=== PATIENT | male | born 1955 | race Caucasian/White ===

== ENCOUNTER → 2017-11-06 | Outpatient (CLI) | payer OTHER | END | disposition home or self-care (01) | LOC: C.LABSPEC 14:45 → C.PATHSPEC 14:48 | PROVIDERS: ATTEND Urology | DX: N40.1 Benign prostatic hyperplasia with lower urinary tract symptoms (principal); R31.0 Gross hematuria; R32 Unspecified urinary incontinence; R39.15 Urgency of urination ==

== ENCOUNTER 2023-12-25 11:59 | Inpatient (IN) ==
--- NOTE | 2023-12-25 12:13 | ED Triage Note ---
Date of Service December 25, 2023 Provider in Triage Author: Santhosh Novak History of Present Illness This patient was briefly evaluated while in triage. An abbreviated physical exam was performed. This patient is a 68-year-old Male, history of diabetes and coronary artery disease, who presents to the ED with his caregiver for evaluation of a racing heart. The patient was seen at [facility] on 01/07/2024. She had a cardioversion Done for atrial fibrillation with rapid ventricular response. The patient was started on Xarelto. The patient has had his metoprolol on hold because his blood pressure dropped. 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 The patient was seen again at their emergency department yesterday, and received IV and oral medications that again reduced his heart rate. He was started on diltiazem. His heart rate this morning was around 157 bpm. Patient denies any chest pain, nausea, lightheadedness or headache. Patient does report shortness of breath with exertion. The patient's blood pressure prior to arrival was 97/76. Physical Exam CONSTITUTIONAL: Healthy and well nourished. Alert and oriented X 3. HEENT: No scleral icterus or conjunctival injection. RESPIRATORY: Clear to auscultation bilaterally with no wheezing, crackles, rhonchi or stridor. CARDIOVASCULAR: Tachycardic rhythm with no obvious murmurs, rubs or gallops. INTEGUMENTARY: No rash or other significant dermatologic conditions noted. HEMATOLOGIC: No ecchymosis or petechiae. PSYCHIATRIC: Positive affect. NEUROLOGIC: No focal neurologic deficits noted. Initial orders for labs and / or imaging were placed and patient was placed in the waiting area until a bed is available. Please see further documentation for the full ED course.
[2023-12-25] MEDS ORDERED: STAT IV Infusion **Titration per Protocol STA ×2 (12:36→21:27)
[2023-12-25] MEDS: dilTIAZem HCl 5 MG/ML 5 ML VIAL IV STA (12:39)
[2023-12-25] MEDS: dilTIAZem HCl 5 MG/ML 5 ML VIAL IV ONE (12:41)
--- NOTE | 2023-12-25 12:49 | Emergency Department Note ---
Impression & Plan Atrial fibrillation with rapid ventricular response ED Provider Note HISTORY OF PRESENT ILLNESS: Patient is a 68-year-old male presenting with tachycardia. Patient's caregiver is at bedside and reports she checked his vital signs earlier today and found that he had a heart rate in the 160s. He has a complicated history of A-fib with RVR. He has been admitted to [facility] multiple times in the last month. Reports that on 12/08/2023 he was admitted into [place] for A-fib with RVR and he was cardioverted for his new onset A-fib. He was started on Xarelto 20 mg daily. He was then at the [facility] ER yesterday for A- fib and was able to be discharged home after his heart rate became controlled on diltiazem. On arrival to the ER, the patient reports he just feels like his heart is racing. Denies any chest pain or shortness of breath. Denies any lightheadedness or dizziness. He does state that when he walks long distances he gets slightly short of breath, but this has been ongoing for the last month. ROS: as above PHYSICAL EXAM: Constitutional: Patient appears in no acute distress. HENT: Head: Normocephalic and atraumatic. Eyes: EOMI, PERRL Mouth/Throat: Mucous membranes moist. Neck: Trachea midline. Neck supple. Cardiovascular: Tachycardic with irregularly irregular rate. No murmurs, rubs or gallops. Intact distal pulses. Pulmonary/Chest: No respiratory distress. Breath sounds clear and equal bilaterally. No wheezes or rales. Abdominal: Abdomen soft, no tenderness, rebound or guarding. Musculoskeletal: No edema, tenderness or deformity noted. Skin: Warm and dry. No rash, erythema, pallor or cyanosis Psychiatric: Appropriate mood and affect for situation. Neurological: Alert and keenly responsive. CN II-XII grossly intact, moving all extremities equally and fully. MDM: - Vitals signs showed tachycardia. - History obtained via patient. History as above. - Chronic conditions affecting care: HTN; HLD; Afib; CAD; DM-2 - Differential diagnoses include, but are not limited to: dysrhythmia; electrolyte abnormality; pneumonia; pulmonary embolism; ACS - Order placed for continuous cardiac monitoring. At this time, monitor showed rate of 156 bpm with irregular rhythm, per my interpretation. - External medical records reviewed. Neurology visit note dated 06/18/2021 was reviewed. Patient follows with [facility] urology for his BPH. - EKG interpreted by myself showed wide-complex tachycardia. Rate 158 bpm. QT 294. No acute ischemic changes. - Laboratory workup interpreted by myself showed normal WBC; slight hyponatremia (Na 133); normal troponin; normal BNP; normal lipase - CXR negaitve for pneumonia, per my interpretation - Patient's HR in 160s and irregular. Given 20 mg IV cardizem bolus and HR improved to 120. Started on cardizem gtt. - Patient's blood pressure became 80s/60s and HR one teens. Cardizem was paused for about 45 minutes. Repeat SBPs around 120. Cardizem was re-started at 2.5 mg - Repeat EKG was obtained and interpreted by myself showed atrial fibrillation. Rate 113 bpm. QT 336. No acute ischemic changes. - Discussion was had with case technician about patient's case and need for admission - Hospitalist, Dr. Collado, consulted for admission. Requested cardiology consultation - Discussed case with [place] pole peeler stonecutter, Dr. Castro. - Patient admitted to [facility] hospitalist service for further evaluation and management. I have personally spent 41 minutes of critical care time in the direct management of this patient. This includes bedside care, interpretation of diagnostic studies, and testing, discussion with consultants, patient, and family members, and other required patient management activities. This 41 minutes is in excess of all separately billable procedures. ASSESSMENT AND PLAN: Diagnosis: Afib with RVR Plan: admit Past Med/Surg History Problem List (Updated 12/25/23 @ 15:09 by Frances Heard MD) Atrial fibrillation with rapid ventricular response (Acute) Sleep apnea Diabetes mellitus CAD (coronary artery disease) Benign prostatic hyperplasia with urinary obstruction Hematuria, microscopic Hyperlipidemia Hypertension Incontinence Nocturia Social History Smoking Status: Former smoker Preferred Language: Sami Feels Safe at Home: Yes Allergies Allergies Allergy/AdvReac Type Severity Reaction Status Date / Time No Known Allergies Allergy Verified 05/16/19 14:43 Home Meds Home Medications Medication Instructions Recorded Confirmed Lactobacillus acidophilus 100 mg 100 mg PO DAILY 03/29/19 05/16/19 (1 billion cell) capsule aspirin 81 mg tablet PO 03/29/19 05/16/19 atorvastatin 20 mg tablet PO 03/29/19 05/16/19 furosemide 20 mg tablet PO 03/29/19 05/16/19 isosorbide mononitrate 30 mg PO 03/29/19 05/16/19 tablet,extended release 24 hr ketoconazole 2 % shampoo 1 appln topical ONCE 03/29/19 05/16/19 lisinopril 5 mg tablet PO 03/29/19 05/16/19 metformin 500 mg tablet PO 03/29/19 05/16/19 metoprolol succinate 25 mg PO 03/29/19 05/16/19 tablet,extended release 24 hr nitroglycerin 0.4 mg sublingual sublingual 03/29/19 05/16/19 tablet potassium chloride 10 mEq PO 03/29/19 05/16/19 tablet,extended release sertraline 25 mg tablet PO 03/29/19 05/16/19 triamcinolone acetonide 0.1 % 1 appln topical DAILY 03/29/19 05/16/19 topical cream Previous Rx's Medication Instructions Recorded cefuroxime axetil 250 mg tablet 250 mg PO BID 3 days #6 tabs 01/13/20 phenazopyridine 100 mg tablet 100 mg PO BID PRN pain #6 tabs 01/30/20 (Pyridium) tamsulosin 0.4 mg capsule 0.4 mg PO DAILY #90 caps 09/02/23 Results & Data (ED) Vital Signs Vital Signs - 24 hr 12/25/23 12:08 12/25/23 12:29 12/25/23 12:30 Temperature 36.2 C L Temperature Source Temporal Artery Scan Pulse Rate 160 H 143 H 155 H Pulse Rate [Apical] Pulse Rate from SpO2 Sensor 144 H Pulse Rhythm Regular Pulse Rhythm [Apical] Pulse Strength Normal Pulse Strength [Apical] Respiratory Rate 24 18 Respiratory Effort / Characteristics Non-Labored Spontaneous Respiratory Depth Normal Respiratory Pattern Regular Blood Pressure 111/77 Blood Pressure [Left Arm] Blood Pressure Mean 88 Blood Pressure Mean [Left Arm] Blood Pressure Position Sitting Pulse Oximetry 96 94 Oxygen Delivery Method Room Air Sepsis Recent Fever Within 48 Hours No Sepsis New/Unexplained Change in Mental Status No Sepsis Action Taken by Nursing Physician Notified 12/25/23 12:30 12/25/23 12:30 12/25/23 12:40 Temperature Temperature Source Pulse Rate 155 H 155 H Pulse Rate [Apical] Pulse Rate from SpO2 Sensor 150 H 155 H Pulse Rhythm Pulse Rhythm [Apical] Pulse Strength Pulse Strength [Apical] Respiratory Rate 23 25 H Respiratory Effort / Characteristics Respiratory Depth Respiratory Pattern Blood Pressure 113/77 Blood Pressure [Left Arm] Blood Pressure Mean 79 Blood Pressure Mean [Left Arm] Blood Pressure Position Pulse Oximetry 93 95 Oxygen Delivery Method Sepsis Recent Fever Within 48 Hours Sepsis New/Unexplained Change in Mental Status Sepsis Action Taken by Nursing 12/25/23 12:42 12/25/23 12:42 12/25/23 12:43 Temperature Temperature Source Pulse Rate 116 H Pulse Rate [Apical] 117 H Pulse Rate from SpO2 Sensor Pulse Rhythm Irregular Pulse Rhythm [Apical] Irregular Pulse Strength Pulse Strength [Apical] Normal Respiratory Rate 22 25 H Respiratory Effort / Characteristics Non-Labored Spontaneous Respiratory Depth Normal Respiratory Pattern Regular Blood Pressure Blood Pressure [Left Arm] 90/57 L Blood Pressure Mean Blood Pressure Mean [Left Arm] 68 Blood Pressure Position Pulse Oximetry 96 94 95 Oxygen Delivery Method Room Air Room Air Room Air Sepsis Recent Fever Within 48 Hours Sepsis New/Unexplained Change in Mental Status Sepsis Action Taken by Nursing 12/25/23 12:43 12/25/23 12:43 12/25/23 12:46 Temperature Temperature Source Pulse Rate 116 H 116 H Pulse Rate [Apical] Pulse Rate from SpO2 Sensor 77 Pulse Rhythm Pulse Rhythm [Apical] Pulse Strength Pulse Strength [Apical] Respiratory Rate 21 29 H Respiratory Effort / Characteristics Respiratory Depth Respiratory Pattern Blood Pressure 90/57 L Blood Pressure [Left Arm] Blood Pressure Mean 66 Blood Pressure Mean [Left Arm] Blood Pressure Position Pulse Oximetry 96 95 Oxygen Delivery Method Sepsis Recent Fever Within 48 Hours Sepsis New/Unexplained Change in Mental Status Sepsis Action Taken by Nursing 12/25/23 12:46 12/25/23 12:49 12/25/23 12:49 Temperature Temperature Source Pulse Rate 102 H Pulse Rate [Apical] Pulse Rate from SpO2 Sensor Pulse Rhythm Pulse Rhythm [Apical] Pulse Strength Pulse Strength [Apical] Respiratory Rate 21 Respiratory Effort / Characteristics Respiratory Depth Respiratory Pattern Blood Pressure 89/58 L 100/57 L Blood Pressure [Left Arm] Blood Pressure Mean 67 76 Blood Pressure Mean [Left Arm] Blood Pressure Position Pulse Oximetry 95 Oxygen Delivery Method Sepsis Recent Fever Within 48 Hours Sepsis New/Unexplained Change in Mental Status Sepsis Action Taken by Nursing 12/25/23 12:50 12/25/23 13:00 12/25/23 13:00 Temperature Temperature Source Pulse Rate 102 H 102 H Pulse Rate [Apical] Pulse Rate from SpO2 Sensor 51 L Pulse Rhythm Pulse Rhythm [Apical] Pulse Strength Pulse Strength [Apical] Respiratory Rate 19 21 Respiratory Effort / Characteristics Respiratory Depth Respiratory Pattern Blood Pressure 100/60 Blood Pressure [Left Arm] Blood Pressure Mean 70 Blood Pressure Mean [Left Arm] Blood Pressure Position Pulse Oximetry 96 95 Oxygen Delivery Method Sepsis Recent Fever Within 48 Hours Sepsis New/Unexplained Change in Mental Status Sepsis Action Taken by Nursing 12/25/23 13:10 12/25/23 13:15 12/25/23 13:15 Temperature Temperature Source Pulse Rate 102 H 101 H Pulse Rate [Apical] Pulse Rate from SpO2 Sensor 51 L 51 L Pulse Rhythm Pulse Rhythm [Apical] Pulse Strength Pulse Strength [Apical] Respiratory Rate 21 23 Respiratory Effort / Characteristics Respiratory Depth Respiratory Pattern Blood Pressure 97/61 L Blood Pressure [Left Arm] Blood Pressure Mean 73 Blood Pressure Mean [Left Arm] Blood Pressure Position Pulse Oximetry 94 94 Oxygen Delivery Method Sepsis Recent Fever Within 48 Hours Sepsis New/Unexplained Change in Mental Status Sepsis Action Taken by Nursing 12/25/23 13:20 12/25/23 13:30 12/25/23 13:31 Temperature Temperature Source Pulse Rate 112 H 114 H 114 H Pulse Rate [Apical] Pulse Rate from SpO2 Sensor 81 78 76 Pulse Rhythm Pulse Rhythm [Apical] Pulse Strength Pulse Strength [Apical] Respiratory Rate 26 H 21 25 H Respiratory Effort / Characteristics Respiratory Depth Respiratory Pattern Blood Pressure Blood Pressure [Left Arm] Blood Pressure Mean Blood Pressure Mean [Left Arm] Blood Pressure Position Pulse Oximetry 95 93 95 Oxygen Delivery Method Sepsis Recent Fever Within 48 Hours Sepsis New/Unexplained Change in Mental Status Sepsis Action Taken by Nursing 12/25/23 13:31 12/25/23 13:40 12/25/23 13:46 Temperature Temperature Source Pulse Rate 101 H Pulse Rate [Apical] Pulse Rate from SpO2 Sensor 53 L Pulse Rhythm Pulse Rhythm [Apical] Pulse Strength Pulse Strength [Apical] Respiratory Rate 18 Respiratory Effort / Characteristics Respiratory Depth Respiratory Pattern Blood Pressure 89/59 L 105/55 L Blood Pressure [Left Arm] Blood Pressure Mean 73 69 Blood Pressure Mean [Left Arm] Blood Pressure Position Pulse Oximetry 95 Oxygen Delivery Method Sepsis Recent Fever Within 48 Hours Sepsis New/Unexplained Change in Mental Status Sepsis Action Taken by Nursing 12/25/23 13:46 12/25/23 13:50 12/25/23 14:00 Temperature Temperature Source Pulse Rate 114 H 114 H Pulse Rate [Apical] 121 H Pulse Rate from SpO2 Sensor 75 76 Pulse Rhythm Pulse Rhythm [Apical] Irregular Pulse Strength Pulse Strength [Apical] Respiratory Rate 22 28 H 22 Respiratory Effort / Characteristics Non-Labored Spontaneous Respiratory Depth Normal Respiratory Pattern Regular Blood Pressure Blood Pressure [Left Arm] 119/59 L Blood Pressure Mean Blood Pressure Mean [Left Arm] 79 Blood Pressure Position Pulse Oximetry 93 94 96 Oxygen Delivery Method Room Air Sepsis Recent Fever Within 48 Hours Sepsis New/Unexplained Change in Mental Status Sepsis Action Taken by Nursing 12/25/23 14:00 12/25/23 14:01 12/25/23 14:01 Temperature Temperature Source Pulse Rate 120 H 121 H Pulse Rate [Apical] Pulse Rate from SpO2 Sensor 81 105 H Pulse Rhythm Pulse Rhythm [Apical] Pulse Strength Pulse Strength [Apical] Respiratory Rate 22 19 Respiratory Effort / Characteristics Respiratory Depth Respiratory Pattern Blood Pressure 99/51 L Blood Pressure [Left Arm] Blood Pressure Mean 65 Blood Pressure Mean [Left Arm] Blood Pressure Position Pulse Oximetry 96 96 Oxygen Delivery Method Sepsis Recent Fever Within 48 Hours Sepsis New/Unexplained Change in Mental Status Sepsis Action Taken by Nursing 12/25/23 14:10 12/25/23 14:16 12/25/23 14:16 Temperature Temperature Source Pulse Rate 121 H 121 H Pulse Rate [Apical] Pulse Rate from SpO2 Sensor 83 86 Pulse Rhythm Pulse Rhythm [Apical] Pulse Strength Pulse Strength [Apical] Respiratory Rate 26 H 21 Respiratory Effort / Characteristics Respiratory Depth Respiratory Pattern Blood Pressure 119/59 L Blood Pressure [Left Arm] Blood Pressure Mean 73 Blood Pressure Mean [Left Arm] Blood Pressure Position Pulse Oximetry 97 96 Oxygen Delivery Method Sepsis Recent Fever Within 48 Hours Sepsis New/Unexplained Change in Mental Status Sepsis Action Taken by Nursing 12/25/23 14:20 12/25/23 14:30 12/25/23 14:31 Temperature Temperature Source Pulse Rate 113 H 120 H Pulse Rate [Apical] Pulse Rate from SpO2 Sensor 64 73 Pulse Rhythm Pulse Rhythm [Apical] Pulse Strength Pulse Strength [Apical] Respiratory Rate 18 21 Respiratory Effort / Characteristics Respiratory Depth Respiratory Pattern Blood Pressure 96/75 L Blood Pressure [Left Arm] Blood Pressure Mean 78 Blood Pressure Mean [Left Arm] Blood Pressure Position Pulse Oximetry 97 98 Oxygen Delivery Method Sepsis Recent Fever Within 48 Hours Sepsis New/Unexplained Change in Mental Status Sepsis Action Taken by Nursing 12/25/23 14:31 12/25/23 14:40 12/25/23 14:45 Temperature Temperature Source Pulse Rate 106 H 113 H Pulse Rate [Apical] Pulse Rate from SpO2 Sensor 70 98 H Pulse Rhythm Pulse Rhythm [Apical] Pulse Strength Pulse Strength [Apical] Respiratory Rate 20 40 H Respiratory Effort / Characteristics Respiratory Depth Respiratory Pattern Blood Pressure 97/62 L Blood Pressure [Left Arm] Blood Pressure Mean 75 Blood Pressure Mean [Left Arm] Blood Pressure Position Pulse Oximetry 96 94 Oxygen Delivery Method Sepsis Recent Fever Within 48 Hours Sepsis New/Unexplained Change in Mental Status Sepsis Action Taken by Nursing 12/25/23 14:45 12/25/23 14:50 12/25/23 15:00 Temperature Temperature Source Pulse Rate 121 H 120 H 130 H Pulse Rate [Apical] Pulse Rate from SpO2 Sensor 97 H 99 H 131 H Pulse Rhythm Pulse Rhythm [Apical] Pulse Strength Pulse Strength [Apical] Respiratory Rate 17 18 27 H Respiratory Effort / Characteristics Respiratory Depth Respiratory Pattern Blood Pressure Blood Pressure [Left Arm] Blood Pressure Mean Blood Pressure Mean [Left Arm] Blood Pressure Position Pulse Oximetry 94 93 92 Oxygen Delivery Method Sepsis Recent Fever Within 48 Hours Sepsis New/Unexplained Change in Mental Status Sepsis Action Taken by Nursing 12/25/23 15:00 Temperature Temperature Source Pulse Rate Pulse Rate [Apical] Pulse Rate from SpO2 Sensor Pulse Rhythm Pulse Rhythm [Apical] Pulse Strength Pulse Strength [Apical] Respiratory Rate Respiratory Effort / Characteristics Respiratory Depth Respiratory Pattern Blood Pressure 93/63 L Blood Pressure [Left Arm] Blood Pressure Mean 68 Blood Pressure Mean [Left Arm] Blood Pressure Position Pulse Oximetry Oxygen Delivery Method Sepsis Recent Fever Within 48 Hours Sepsis New/Unexplained Change in Mental Status Sepsis Action Taken by Nursing Laboratory Data 12/25/23 12:21 12/25/23 12:21 Lab Results 12/25/23 12/25/23 Range/Units 12:21 14:08 WBC 10.40 (4.8-10.8) K/ul RBC 5.24 (4.70-6.10) M/uL Hgb 16.7 (14.0-18.0) g/dl Hct 48.1 (42.0-52.0) % MCV 91.8 (80.0-100.0) fL MCH 31.9 (25.0-34.0) pg MCHC 34.7 (32.0-36.0) g/dL RDW Std Deviation 43.7 (36.4-46.3) fL RDW Coeff of Edgar 13.1 (11.5-14.5) % Plt Count 249 (130-400) K/uL MPV 11.9 (9.4-12.4) fL Immature Gran % (Auto) 0.4 % Neut % (Auto) 67.3 % Lymph % (Auto) 22.3 % [place] % (Auto) 8.2 % Eos % (Auto) 1.1 % Baso % (Auto) 0.7 % Neut # (Auto) 7.01 H (1.40-6.50) K/uL Lymph # (Auto) 2.32 (1.20-3.40) K/uL [place] # (Auto) 0.85 H (0.11-0.59) K/uL Eos # (Auto) 0.11 (0.00-0.50) K/uL Baso # (Auto) 0.07 (0.00-0.20) K/uL Immature Gran # (Auto) 0.04 (0.01-0.20) K/uL PT Cancelled 11.8 INR Cancelled 1.1 Sodium 133 L (136-145) mmol/L Potassium 4.0 (3.5-5.1) mmol/L Chloride 99 (98-107) mmol/L Carbon Dioxide 26 (21-32) mmol/L Anion Gap 8 (3-11) BUN 16 (6-23) mg/dl Creatinine 1.14 (0.6-1.4) mg/dl Est Cr Clr Drug Dosing 77.1 ml/min Est GFR ( Amer) 75.6 ml/min Est GFR (Non-Af Amer) 65.3 ml/min BUN/Creatinine Ratio 14.0 (10-20) Glucose 137 H (70-99(Fasting)) mg/dl Calcium 9.6 (8.6-10.3) mg/dl Magnesium 2.0 (1.7-2.4) mg/dl Total Bilirubin 1.2 H (0.2-1.0) mg/dl AST 17 (13-39) U/L ALT 15 (7-52) U/L Alkaline Phosphatase 53 (34-104) U/L Troponin I High Sens 12.0 (0-20) pg/ml B-Natriuretic Peptide 69 (0-100) pg/ml Total Protein 7.3 (6.0-8.3) gm/dl Albumin 4.2 (3.4-5.0) gm/dl Globulin 3.1 (2.5-4.0) gm/dl Albumin/Globulin Ratio 1.4 (0.9-2) Lipase 15 (11-82) U/L Administered Medications Diltiazem HCl 125 mg/ Dextrose 125 mls @ 0 mls/hr IV .Q0M SATISH; Protocol Stop: 01/24/24 12:44 Last Titration: 12/25/23 14:34 Dose: 2.5 mg/hr, 2.5 mls/hr Documented By: DEENA Co-signed By: SOTO Titration: 12/25/23 13:36 Dose: 0 mg/hr, 0 mls/hr Documented By: DEENA Co-signed By: SAUD Admin: 12/25/23 12:50 Dose: 5 mg/hr, 5 mls/hr Documented By: DEENA Co-signed By: CECELIA Discontinued Medications Diltiazem HCl (Diltiazem Hcl 5 Mg/Ml 5 Ml Vial) Confirm Administered Dose 25 mg IV .STK-MED ONE Stop: 12/25/23 12:37 Last Admin: 12/25/23 12:41 Dose: Not Given Documented By: CORNEL Diltiazem HCl (Diltiazem Hcl 5 Mg/Ml 5 Ml Vial) 20 mg IV NOW STA Stop: 12/25/23 12:37 Last Admin: 12/25/23 12:39 Dose: 20 mg Documented By: CORNEL Co-signed By: SOTO Imaging Data Radiologist's Impression: Chest X-Ray 12/25/23 12:19 XR chest 1V portable HISTORY: 68 years-old Male Chest pain, nonspecific COMPARISON: None TECHNIQUE: AP view chest FINDINGS: Cardiac silhouette is enlarged. Pulmonary vascular congestion. No pneumothorax, large pleural effusion or lobar airspace consolidation. Bones appear grossly intact. IMPRESSION: Cardiomegaly with pulmonary vascular congestion. ACT 112: Negative or not required by law. The above report was generated using voice recognition software. It may contain grammatical, syntax or spelling errors. Electronically signed by: Arsenio Wray M.D. 12/25/2023 1:32 PM Discharge Plan Visit Data Chief Complaint: Cardiac Assessment Stated Complaint: POSSIBLE AFIB, HIGH BP ED Provider: Frances Heard Discharge Problem: Atrial fibrillation with rapid ventricular response Forms Stand Alone Forms: [facility] Prescriptions Prescriptions: No Action cefuroxime axetil 250 mg tablet 250 mg PO BID 3 Days Qty: 6 0RF phenazopyridine [Pyridium] 100 mg tablet 100 mg PO BID PRN (Reason: pain) Qty: 6 0RF Rx Instructions: Give after meals metoprolol succinate 25 mg tablet extended release 24 hr PO furosemide 20 mg tablet PO lisinopril 5 mg tablet PO aspirin 81 mg tablet PO sertraline 25 mg tablet PO nitroglycerin 0.4 mg tablet, sublingual SL triamcinolone acetonide 0.1 % cream 1 appln topical DAILY potassium chloride 10 mEq tablet extended release PO isosorbide mononitrate 30 mg tablet extended release 24 hr PO ketoconazole 2 % shampoo 1 appln topical ONCE atorvastatin 20 mg tablet PO metformin 500 mg tablet PO Lactobacillus acidophilus 100 mg (1 billion cell) capsule 100 mg PO DAILY tamsulosin 0.4 mg capsule 0.4 mg PO DAILY Qty: 90 3RF Referrals Referrals: Darrin Mejia [Primary Care Provider] -
[2023-12-25] MEDS: dilTIAZem HCL 125 MG in DEXTROSE 5% 100 ML IV SCH (12:50)
[2023-12-25 13:08] LABS: Basophils # (auto) 0.07 K/uL (0.00-0.20); Basophils % (auto) 0.7 %; Eosinophils # (auto) 0.11 K/uL (0.00-0.50); Eosinophils % (auto) 1.1 %; Hematocrit (blood only) 48.1 % (42.0-52.0); Hemoglobin 16.7 g/dl (14.0-18.0); Immature Granulocytes # (auto) 0.04 K/uL (0.01-0.20); Immature Granulocytes % (auto) 0.4 %; Lymphocytes # (auto) 2.32 K/uL (1.20-3.40); Lymphocytes % (auto) 22.3 %; Mean Corpuscular Hemoglobin 31.9 pg (25.0-34.0); Mean Corpuscular Hgb Conc 34.7 g/dL (32.0-36.0); Mean Corpuscular Volume 91.8 fL (80.0-100.0); Mean Platelet Volume 11.9 fL (9.4-12.4); Monocytes # (auto) 0.85 K/uL (0.11-0.59); Monocytes % (auto) 8.2 %; Neutrophils # (auto) 7.01 K/uL (1.40-6.50); Neutrophils % (auto) 67.3 %; Platelet Count 249 K/uL (130-400); RDW Coefficient of Variation 13.1 % (11.5-14.5); RDW Standard Deviation 43.7 fL (36.4-46.3); Red Blood Count 5.24 M/uL (4.70-6.10)
[2023-12-25 13:13] LABS: Albumin Level 4.2 gm/dl (3.4-5.0); Bilirubin,Total 1.2 mg/dl (0.2-1.0); Calcium 9.6 mg/dl (8.6-10.3)
[2023-12-25 13:19] LABS: Albumin Globulin Ratio 1.4 (0.9-2); Creatinine Clr Calc Pharmacy 77.1 ml/min; Est GFR (African American) 75.6 ml/min; Est GFR (Non-African American) 65.3 ml/min; Globulin 3.1 gm/dl (2.5-4.0); Total Protein 7.3 gm/dl (6.0-8.3)
--- NOTE | 2023-12-25 13:33 | XRay Report ---
XR chest 1V portable HISTORY: 68 years-old Male Chest pain, nonspecific COMPARISON: None TECHNIQUE: AP view chest FINDINGS: Cardiac silhouette is enlarged. Pulmonary vascular congestion. No pneumothorax, large pleural effusio n or lobar airspace consolidation. Bones appear grossly intact. IMPRESSION: Cardiomegaly with pulmonary vascular congestion. ACT 112: Negative or not required by law. The above report was generated using voice recognition software. It may contain grammatical, syntax o r spelling errors. Electronically signed by: Arsenio Wray M.D. 12/25/2023 1:32 PM
[2023-12-25 14:59] LABS: INR 1.1 (0.9-1.1); Prothrombin Time 11.8 Seconds (9.0-12.0)
--- NOTE | 2023-12-25 15:21 | History & Physical Report ---
Date of Service December 25, 2023 Assessment & Plan (1) Atrial flutter with rapid ventricular response: Plan: Diagnosed with incidental atrial fibrillation with RVR December 07 pre-op colonoscopy and started on Xarelto. Treated with cardioversion and metoprolol actually discontinued at that time due to post cardioversion hypotension Returned to ER from cariology office with RVR and started diltiazem and discharged from ER. 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 At risk of hypotension for the rest of the day especially with his other anti-hypertensives Discontinue all rate controlling medications at this time - reportedly not symptomatic even with his rates in 150s Discontinue lisinopril to allow increased BP Plan to let diltiazem come out of his system then consult cardiology for consideration of DON cardioversion (he has only been on Xarelto since December 07) (2) Acute heart failure with preserved ejection fraction: Plan: Suspect rate related pulmonary edema contributing towards his shortness of breath Should improve with rate control with cardioversion Continue on his usual dose of furosemide given current hypotension will not increase (3) CAD (coronary artery disease): Plan: Unknown history of this Continue aspirin, atorvastatin Not on metoprolol due to hypotension following cardioversion Hold lisinopril due to hypotension (4) Diabetes mellitus: Plan: HbA1c with a.m. labs Hold metformin and glimepiride Since he took this this morning we will just use NovoLog for correction factor only but may need basal insulin as glimepiride is metabolized/excreted (5) Benign prostatic hyperplasia with urinary obstruction: Plan: History of urinary obstruction, no current concern for this Continue tamsulosin (6) Sleep apnea: Plan: Noncompliant with CPAP outpatient Plan VTE prophylaxis - Xarelto Diet - type 2 diabetes Disposition - admit to PCU Admission and Anticipated Discharge Date Admission Date: December 25, 2023 History of Present Illness Chief Complaint: Tachycardia Primary Care Provider: Darrin Mejia Shaka Neri is a 68-year-old male with mild intellectual developmental disability who presents to the emergency room with tachycardia. The patient is unable to give me any history and his caregiver has left for the day. He reports no current chest pain, shortness of breath, palpitations, presyncope. Information taken from the nurse at [facility] Zonia Freedman. On December 07 he was going for a colonoscopy at [place] and was noted incidentally to be in atrial fibrillation with RVR. This was a new diagnosis at that time and he was admitted to the hospital and cardioverted the same day. He was started on Xarelto for stroke prophylaxis. Echocardiogram showed LVEF 55-60% with no regional wall motion abnormalities. His metoprolol was discontinued at that time due to hypotension s/p cardioversion while in normal sinus rhythm. He followed up with a [facility] sound ranging crewmember Dr Moreno and his HR was still elevated to be point he recommended going back to [place] ER. Unclear what they gave him in the emergency room but he was discharged and started on Diltiazem ER 240mg PO which they have had trouble getting from the pharmacy therefore he only took his first dose of this today. He was noted to have tachycardia today and some concern he was short of breath therefore Allergies Allergy/AdvReac Type Severity Reaction Status Date / Time No Known Allergies Allergy Verified 05/16/19 14:43 Home Medications Medication Instructions Recorded Confirmed Type Lactobacillus acidophilus 100 mg 100 mg PO BID 03/29/19 12/25/23 History (1 billion cell) capsule aspirin 81 mg tablet 162 mg PO DAILY 03/29/19 12/25/23 History isosorbide mononitrate 30 mg 30 mg PO DAILY 03/29/19 12/25/23 History tablet,extended release 24 hr ketoconazole 2 % shampoo 1 appln topical ONCE 03/29/19 05/16/19 History lisinopril 5 mg tablet 2.5 mg PO DAILY 03/29/19 12/25/23 History triamcinolone acetonide 0.1 % 1 appln topical DAILY 03/29/19 05/16/19 History topical cream tamsulosin 0.4 mg capsule 0.4 mg PO DAILY #90 caps 09/02/23 12/25/23 Rx atorvastatin 10 mg tablet 10 mg PO HS 12/25/23 12/25/23 History diltiazem HCl 240 mg 240 mg PO DAILY 12/25/23 12/25/23 History tablet,extended release 24 hr furosemide 40 mg tablet 40 mg PO BID 12/25/23 12/25/23 History glimepiride 2 mg tablet 2 mg PO DAILY 12/25/23 12/25/23 History metformin 500 mg tablet,extended 500 mg PO BID 12/25/23 12/25/23 History release 24 hr potassium chloride 20 mEq/15 mL 20 meq PO BID 12/25/23 12/25/23 History oral liquid rivaroxaban 20 mg tablet (Xarelto) 20 mg PO HS 12/25/23 12/25/23 History sertraline 100 mg tablet 100 mg PO HS 12/25/23 12/25/23 History Past Med/Surg History Problem List (Updated 12/25/23 @ 20:18 by Guerrero Collado MD) Acute heart failure with preserved ejection fraction Atrial flutter with rapid ventricular response Atrial fibrillation with rapid ventricular response (Acute) Sleep apnea Diabetes mellitus CAD (coronary artery disease) Hematuria, microscopic Hyperlipidemia Hypertension Incontinence Nocturia Medical History (Updated 12/25/23 @ 20:18 by Guerrero Collado MD) Benign prostatic hyperplasia with urinary obstruction Social History Smoking Status: Never smoker Second Hand Exposure: No; Do You Dip or Chew Tobacco: No; Tobacco Cessation Education Requested by Patient: No Hx Alcohol Use: No Hx Substance Use: No Preferred Language: Setswana Communication Ability: Effective 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: No Beliefs That Will Affect Care: None Current Living Situation: Personal Care Facility Other Information That Helps Us Care for You: No Feels Safe at Home: Yes Safety Concerns: Feels Safe At This Time Assistive Devices: None Review of Systems Review of Systems: All systems reviewed & are unremarkable except as noted in HPI & below Physical Exam Constitutional: WD/WN, vitals as above Eyes: PERRL Amblyopia ENMT: external ear and nose normal, oropharynx normal Respiratory: normal respiratory effort; no respiratory distress Auscultation: + crackles (Bibasal); breath sounds present, no diminished lung sounds and no wheezes Cardiovascular: Rate/Rhythm: + tachycardic and + irregularly irregular Heart Sounds: no murmur Extremities: normal capillary refill and + pedal edema (Trace bilateral equal); no calf tenderness Gastrointestinal (Abdomen): normal bowel sounds, soft, nontender, no hepatosplenomegaly Musculoskeletal: no cyanosis or clubbing, extremities motor strength 5/5 Skin: no rashes, warm and dry Neurologic: moves all extremities and awake; not confused Psychiatric: A+Ox3, euthymic affect Genitourinary: no CVA tenderness Results & Data Results & Data Vital Signs (Past 12 Hours) Vital Signs Temp Pulse Pulse Resp BP BP Pulse Ox 12/25/23 15:00 93/63 L 12/25/23 15:00 130 H 27 H 92 12/25/23 14:50 120 H 18 93 12/25/23 14:45 121 H 17 94 12/25/23 14:45 97/62 L 12/25/23 14:40 113 H 40 H 94 12/25/23 14:31 106 H 20 96 12/25/23 14:31 96/75 L 12/25/23 14:30 120 H 21 98 12/25/23 14:20 113 H 18 97 12/25/23 14:16 119/59 L 12/25/23 14:16 121 H 21 96 12/25/23 14:10 121 H 26 H 97 12/25/23 14:01 121 H 19 96 12/25/23 14:01 99/51 L 12/25/23 14:00 120 H 22 96 12/25/23 14:00 121 H 22 119/59 L 96 12/25/23 13:50 114 H 28 H 94 12/25/23 13:46 114 H 22 93 12/25/23 13:46 105/55 L 12/25/23 13:40 101 H 18 95 12/25/23 13:31 89/59 L 12/25/23 13:31 114 H 25 H 95 12/25/23 13:30 114 H 21 93 12/25/23 13:20 112 H 26 H 95 12/25/23 13:15 97/61 L 12/25/23 13:15 101 H 23 94 12/25/23 13:10 102 H 21 94 12/25/23 13:00 100/60 12/25/23 13:00 102 H 21 95 12/25/23 12:50 102 H 19 96 12/25/23 12:49 102 H 21 95 12/25/23 12:49 100/57 L 12/25/23 12:46 89/58 L 12/25/23 12:46 116 H 29 H 95 12/25/23 12:43 90/57 L 12/25/23 12:43 116 H 21 96 12/25/23 12:43 116 H 25 H 95 12/25/23 12:42 117 H 22 90/57 L 94 12/25/23 12:42 96 12/25/23 12:40 155 H 25 H 95 12/25/23 12:30 113/77 12/25/23 12:30 155 H 23 93 12/25/23 12:30 155 H 12/25/23 12:29 143 H 18 94 12/25/23 12:08 36.2 C L 160 H 24 111/77 96 O2 Del Method 12/25/23 15:00 12/25/23 15:00 12/25/23 14:50 12/25/23 14:45 12/25/23 14:45 12/25/23 14:40 12/25/23 14:31 12/25/23 14:31 12/25/23 14:30 12/25/23 14:20 12/25/23 14:16 12/25/23 14:16 12/25/23 14:10 12/25/23 14:01 12/25/23 14:01 12/25/23 14:00 12/25/23 14:00 Room Air 12/25/23 13:50 12/25/23 13:46 12/25/23 13:46 12/25/23 13:40 12/25/23 13:31 12/25/23 13:31 12/25/23 13:30 12/25/23 13:20 12/25/23 13:15 12/25/23 13:15 12/25/23 13:10 12/25/23 13:00 12/25/23 13:00 12/25/23 12:50 12/25/23 12:49 12/25/23 12:49 12/25/23 12:46 12/25/23 12:46 12/25/23 12:43 12/25/23 12:43 12/25/23 12:43 Room Air 12/25/23 12:42 Room Air 12/25/23 12:42 Room Air 12/25/23 12:40 12/25/23 12:30 12/25/23 12:30 12/25/23 12:30 12/25/23 12:29 12/25/23 12:08 Room Air Laboratory Results Abnormal lab results 12/25/23 Range/Units 12:21 Neut # (Auto) 7.01 H (1.40-6.50) K/uL [place] # (Auto) 0.85 H (0.11-0.59) K/uL Sodium 133 L (136-145) mmol/L Glucose 137 H (70-99(Fasting)) mg/dl Total Bilirubin 1.2 H (0.2-1.0) mg/dl Diagnostic Findings XR chest 1V portable HISTORY: 68 years-old Male Chest pain, nonspecific COMPARISON: None TECHNIQUE: AP view chest FINDINGS: Cardiac silhouette is enlarged. Pulmonary vascular congestion. No pneumothorax, large pleural effusion or lobar airspace consolidation. Bones appear grossly intact. IMPRESSION: Cardiomegaly with pulmonary vascular congestion. Medications Administered ER medications given: Diltiazem 20 mg IV Diltiazem 2.5 mg IV per hour drip ECG Rate (beats per minute): 158 Rhythm: atrial flutter Findings: + RBBB Comparison ECG Date: no prior available Code Status & VTE Plan Code Status Full VTE Prophylaxis Plan VTE Prophylaxis will be ordered: Yes PG Care Time/CCT Total # of Minutes Spent Total Time Spent with Patient: Total time spent is greater than 50% in coordination of care (as documented) at patient's floor/unit and/or counseling patient: Coding Level of Care Code 65886 INT INP/OBS CARE 375MIN Diagnoses Atrial flutter with rapid ventricular response I48.92 Acute heart failure with preserved ejection fraction I50.31 CAD (coronary artery disease) I25.10 Diabetes mellitus E11.9 Benign prostatic hyperplasia with urinary obstruction N40.1; N13.8 Sleep apnea G47.30
[2023-12-25 17:15] LABS: Thyroid Stimulating Hormone 1.364 uIu/ml (0.300-4.500)
[2023-12-25] MEDS ORDERED: ACETAMINOPHEN 325 MG TAB PO PRN (18:20)
[2023-12-25] MEDS ORDERED: DEXTROSE 50% 50 ML SYRINGE IV PRN (19:17)
[2023-12-25] MEDS ORDERED: GLUCAGON FOR INJ 1 MG VIAL SQ PRN (19:17)
[2023-12-25] MEDS ORDERED: CARBOHYDRATES FOR HYPOGLYCEMIA PO PRN (19:17)
[2023-12-25] MEDS ORDERED: GLUCOSE 10 TAB/TUBE PO PRN (19:17)
[2023-12-25] MEDS ORDERED: GLUCOSE 40% GEL 15 GM TUBE PO PRN (19:17)
--- NOTE | 2023-12-25 19:27 | Communication Note ---
Date of Service: December 25, [address] Castro, no plans on electrical cardioversion, no need for NPO after midnight. Planning on IV amiodarone. Diltiazem discontinued as previously discussed.
[2023-12-25] MEDS: INSULIN ASPART PER UNIT CHARGE SC SCH (20:31)
[2023-12-25] MEDS: SERTRALINE HCL 100 MG TABLET PO SCH (20:40)
[2023-12-25] MEDS: RIVAROXABAN 20 MG TAB PO SCH (20:40)
[2023-12-25] MEDS: ATORVASTATIN 10 MG TAB PO SCH (20:40)
[2023-12-25] MEDS: POTASSIUM CHLORIDE 20 MEQ/15 ML UDC PO SCH (20:42)
[2023-12-25] MEDS ORDERED: 0.2 MICRON FILTER SET 1 EACH IV STA (21:27)
--- NOTE | 2023-12-25 21:27 | Cardiology Consultation ---
Date of Consultation December 25, 2023 Assessment & Plan (1) Atrial flutter with rapid ventricular response: (2) CAD (coronary artery disease): Plan 1. Atrial flutter: There were reports of atrial fibrillation as well, but the current rhythm appears to be more consistent with an atrial flutter. His risk for atrial flutter include his obesity and possible pickwickian syndrome. He may also have an element of undiagnosed sleep apnea. He does not appear to be overtly symptomatic from atrial flutter or the associated tachycardia. While he does have a history of dyspnea on exertion, I am not sure he has decompensated heart failure. He is on a daily diuretic regimen and this has been continued. He is on systemic anticoagulation. By report he has been cardioverted previously. I think would be reasonable to perform another cardioversion when the opportunity arises. Given the history of prior cardioversion and return to atrial flutter he will need an antiarrhythmic as well. Catheter-based therapy can also be entertained at some point. Unfortunately, he may have an element of coronary disease. We do not have an assessment of his cardiac function or possible structural heart disease. As such, the safest antiarrhythmic would seem to be amiodarone in the short-term. He appears to be on appropriately dosed apixaban. 2. Coronary artery disease: This is by report. However, he is on a medical regimen which includes aspirin in addition to Xarelto, atorvastatin and isosorbide mononitrate. These are all commonly used in the setting of coronary disease. I think we will assume he has a history of coronary disease and treat him accordingly. History of Present Illness Reason for Consultation: Atrial flutter Requesting Physician: [place] Attending Physician: Guerrero Collado MD History of Present Illness The patient is a 68-year-old gentleman with a reported history of coronary artery disease who presented to the emergency room with atrial flutter. It seems that the patient was noted to have atrial flutter at the time of colon oscopy in late November. By reports he underwent a cardioversion at that time and was started on anticoagulation. However, he had a recurrence of atrial flutter and attempts at rate control were subsequently made. Patient was at [facility] yesterday but continues to have elevated heart rates and decided to come to the [facility] emergency room today. The patient lives in a senior living with his . He was accompanied by a caregiver today who provided most of the history. The patient has been unaware of high heart rates or palpitations. By his report he has not noticed increasin g dyspnea although he does have an element of baseline shortness of breath. He has some degree of exercise intolerance due to some weakness in the legs. He denied any exertional chest pain. He has not had dizziness or lightheadedness. He does not report a history of syncope. According to his caregiver he does not sleep very well and spends most of the evening up watching videos. He may have a history of snoring. He did not report orthopnea. He states that occasionally he will have some lower extremity edema but recently this has not been an issue. The patient does report a history of "a stent". He points to his chest where he believes the stent was placed. However, he could not provide any details regarding where it was performed or for what symptoms it was performed. Allergies Allergy/AdvReac Type Severity Reaction Status Date / Time No Known Allergies Allergy Verified 05/16/19 14:43 Home Medications Medication Instructions Recorded Confirmed Type Lactobacillus acidophilus 100 mg 100 mg PO BID 03/29/19 12/25/23 History (1 billion cell) capsule aspirin 81 mg tablet 162 mg PO DAILY 03/29/19 12/25/23 History isosorbide mononitrate 30 mg 30 mg PO DAILY 03/29/19 12/25/23 History tablet,extended release 24 hr ketoconazole 2 % shampoo 1 appln topical ONCE 03/29/19 05/16/19 History lisinopril 5 mg tablet 2.5 mg PO DAILY 03/29/19 12/25/23 History triamcinolone acetonide 0.1 % 1 appln topical DAILY 03/29/19 05/16/19 History topical cream tamsulosin 0.4 mg capsule 0.4 mg PO DAILY #90 caps 09/02/23 12/25/23 Rx atorvastatin 10 mg tablet 10 mg PO HS 12/25/23 12/25/23 History diltiazem HCl 240 mg 240 mg PO DAILY 12/25/23 12/25/23 History tablet,extended release 24 hr furosemide 40 mg tablet 40 mg PO BID 12/25/23 12/25/23 History glimepiride 2 mg tablet 2 mg PO DAILY 12/25/23 12/25/23 History metformin 500 mg tablet,extended 500 mg PO BID 12/25/23 12/25/23 History release 24 hr potassium chloride 20 mEq/15 mL 20 meq PO BID 12/25/23 12/25/23 History oral liquid rivaroxaban 20 mg tablet (Xarelto) 20 mg PO HS 12/25/23 12/25/23 History sertraline 100 mg tablet 100 mg PO HS 12/25/23 12/25/23 History Patient History Medical History (Updated 12/25/23 @ 20:18 by Guerrero Collado MD) Benign prostatic hyperplasia with urinary obstruction Social History Smoking Status: Never smoker Second Hand Exposure: No; Do You Dip or Chew Tobacco: No; Tobacco Cessation Education Requested by Patient: No Hx Alcohol Use: No Hx Substance Use: No Preferred Language: British Communication Ability: Effective Rivet Catcher Required: No Beliefs That Will Affect Care: None Current Living Situation: Personal Care Facility Other Information That Helps Us Care for You: No Feels Safe at Home: Yes Safety Concerns: Feels Safe At This Time Assistive Devices: None Review of Systems Review of Systems: Per HPI Physical Exam Physical Exam: The patient is alert and oriented. Mood and affect appeared normal. He answered all questions appropriately. HEENT: Pupils are equal and reactive to light and accommodation. Extraocular movements are intact. The sclerae are anicteric. Neuro: Cranial nerves intact Neck: Patient's neck is supple. He has palpable carotid pulses bilaterally without bruits on auscultation. There is no evidence of jugular venous distention. The thyroid is not enlarged. Lungs: Clear to auscultation bilaterally. He has good air movement without use of accessory muscles. No rales wheezes or rhonchi. Cardiac: Heart demonstrates a regular rate and rhythm. Normal S1 and S2. No murmurs on examination. Pulses: The patient has palpable radial pulses bilaterally that are equal in intensity Extremities: There was no evidence of hypoperfusion. There is no cyanosis or clubbing. There is no edema. Skin: I did not appreciate any rashes on examination today. Atrial fibrillation Results & Data Vital Signs (Past 12 Hours) Vital Signs Temp Pulse Pulse Resp BP BP Pulse Ox 12/25/23 19:40 36.7 C 112 H 22 116/64 94 05/17/24 18:20 36.8 C 100 H 16 102/70 95 12/25/23 18:20 12/25/23 17:46 104 H 31 H 94 12/25/23 17:46 102/54 L 12/25/23 17:40 106 H 21 96 12/25/23 17:31 118 H 21 94 12/25/23 17:31 112/66 12/25/23 17:30 99 H 21 95 12/25/23 17:20 112 H 27 H 94 12/25/23 17:17 82/62 L 12/25/23 17:17 111 H 22 95 12/25/23 17:10 113 H 22 95 12/25/23 17:01 111 H 20 12/25/23 17:01 106/63 12/25/23 17:00 111 H 21 12/25/23 16:50 111 H 27 H 12/25/23 16:46 111 H 20 12/25/23 16:46 117/63 12/25/23 16:40 112 H 24 12/25/23 16:31 91/60 L 12/25/23 16:31 118 H 23 12/25/23 16:30 112 H 35 H 12/25/23 16:20 110 H 24 12/25/23 16:18 112 H 12/25/23 16:16 118 H 20 12/25/23 16:16 90/64 L 12/25/23 16:10 111 H 18 12/25/23 16:01 112 H 23 12/25/23 16:01 103/64 12/25/23 16:00 112 H 36 H 12/25/23 16:00 112 H 21 90/64 L 12/25/23 15:50 107 H 32 H 95 12/25/23 15:46 113/62 12/25/23 15:46 113 H 19 12/25/23 15:40 112 H 18 12/25/23 15:30 113 H 19 12/25/23 15:30 92/63 L 12/25/23 15:20 120 H 20 92/63 L 93 12/25/23 15:17 120 H 19 95 12/25/23 15:17 86/56 L 12/25/23 15:10 113 H 24 94 12/25/23 15:00 93/63 L 12/25/23 15:00 130 H 27 H 92 12/25/23 14:50 120 H 18 93 12/25/23 14:45 121 H 17 94 12/25/23 14:45 97/62 L 12/25/23 14:40 113 H 40 H 94 12/25/23 14:31 106 H 20 96 12/25/23 14:31 96/75 L 12/25/23 14:30 120 H 21 98 12/25/23 14:20 113 H 18 97 12/25/23 14:16 119/59 L 12/25/23 14:16 121 H 21 96 12/25/23 14:10 121 H 26 H 97 12/25/23 14:01 121 H 19 96 12/25/23 14:01 99/51 L 12/25/23 14:00 120 H 22 96 12/25/23 14:00 121 H 22 119/59 L 96 12/25/23 13:50 114 H 28 H 94 12/25/23 13:46 114 H 22 93 12/25/23 13:46 105/55 L 12/25/23 13:40 101 H 18 95 12/25/23 13:31 89/59 L 12/25/23 13:31 114 H 25 H 95 12/25/23 13:30 114 H 21 93 12/25/23 13:20 112 H 26 H 95 12/25/23 13:15 97/61 L 12/25/23 13:15 101 H 23 94 12/25/23 13:10 102 H 21 94 12/25/23 13:00 100/60 12/25/23 13:00 102 H 21 95 12/25/23 12:50 102 H 19 96 12/25/23 12:49 102 H 21 95 12/25/23 12:49 100/57 L 12/25/23 12:46 89/58 L 12/25/23 12:46 116 H 29 H 95 12/25/23 12:43 90/57 L 12/25/23 12:43 116 H 21 96 12/25/23 12:43 116 H 25 H 95 12/25/23 12:42 117 H 22 90/57 L 94 12/25/23 12:42 96 12/25/23 12:40 155 H 25 H 95 12/25/23 12:30 113/77 12/25/23 12:30 155 H 23 93 12/25/23 12:30 155 H 12/25/23 12:29 143 H 18 94 12/25/23 12:08 36.2 C L 160 H 24 111/77 96 Pulse Ox O2 Del Method O2 Del Method 12/25/23 19:40 Room Air 12/25/23 18:20 Room Air 12/25/23 18:20 96 Room Air 12/25/23 17:46 12/25/23 17:46 12/25/23 17:40 12/25/23 17:31 12/25/23 17:31 12/25/23 17:30 12/25/23 17:20 12/25/23 17:17 12/25/23 17:17 12/25/23 17:10 12/25/23 17:01 12/25/23 17:01 12/25/23 17:00 12/25/23 16:50 12/25/23 16:46 12/25/23 16:46 12/25/23 16:40 12/25/23 16:31 12/25/23 16:31 12/25/23 16:30 12/25/23 16:20 12/25/23 16:18 12/25/23 16:16 12/25/23 16:16 12/25/23 16:10 12/25/23 16:01 12/25/23 16:01 12/25/23 16:00 12/25/23 16:00 Room Air 12/25/23 15:50 12/25/23 15:46 12/25/23 15:46 12/25/23 15:40 12/25/23 15:30 12/25/23 15:30 12/25/23 15:20 12/25/23 15:17 12/25/23 15:17 12/25/23 15:10 12/25/23 15:00 12/25/23 15:00 12/25/23 14:50 12/25/23 14:45 12/25/23 14:45 12/25/23 14:40 12/25/23 14:31 12/25/23 14:31 12/25/23 14:30 12/25/23 14:20 12/25/23 14:16 12/25/23 14:16 12/25/23 14:10 12/25/23 14:01 12/25/23 14:01 12/25/23 14:00 12/25/23 14:00 Room Air 12/25/23 13:50 12/25/23 13:46 12/25/23 13:46 12/25/23 13:40 12/25/23 13:31 12/25/23 13:31 12/25/23 13:30 12/25/23 13:20 12/25/23 13:15 12/25/23 13:15 12/25/23 13:10 12/25/23 13:00 12/25/23 13:00 12/25/23 12:50 12/25/23 12:49 12/25/23 12:49 12/25/23 12:46 12/25/23 12:46 12/25/23 12:43 12/25/23 12:43 12/25/23 12:43 Room Air 12/25/23 12:42 Room Air 12/25/23 12:42 Room Air 12/25/23 12:40 12/25/23 12:30 12/25/23 12:30 12/25/23 12:30 12/25/23 12:29 12/25/23 12:08 Room Air Laboratory Results Abnormal Lab Results 12/25/23 12/25/23 12/25/23 12:21 14:08 20:13 WBC 10.40 RBC 5.24 Hgb 16.7 Hct 48.1 MCV 91.8 MCH 31.9 MCHC 34.7 RDW Std Deviation 43.7 RDW Coeff of Edgar 13.1 Plt Count 249 MPV 11.9 Immature Gran % (Auto) 0.4 Neut % (Auto) 67.3 Lymph % (Auto) 22.3 [place] % (Auto) 8.2 Eos % (Auto) 1.1 Baso % (Auto) 0.7 Neut # (Auto) 7.01 H Lymph # (Auto) 2.32 [place] # (Auto) 0.85 H Eos # (Auto) 0.11 Baso # (Auto) 0.07 Immature Gran # (Auto) 0.04 PT Cancelled 11.8 INR Cancelled 1.1 Sodium 133 L Potassium 4.0 Chloride 99 Carbon Dioxide 26 Anion Gap 8 BUN 16 Creatinine 1.14 Est Cr Clr Drug Dosing 77.1 Est GFR ( Amer) 75.6 Est GFR (Non-Af Amer) 65.3 BUN/Creatinine Ratio 14.0 Glucose 137 H POC Glucose 121 H Calcium 9.6 Magnesium 2.0 Total Bilirubin 1.2 H AST 17 ALT 15 Alkaline Phosphatase 53 Troponin I High Sens 12.0 B-Natriuretic Peptide 69 Total Protein 7.3 Albumin 4.2 Globulin 3.1 Albumin/Globulin Ratio 1.4 Lipase 15 TSH 1.364 Diagnostic Findings Chest x-ray obtained at the time admission revealed cardiomegaly and pulmonary vascular congestion ECG Additional Comments: EKG demonstrated atrial flutter and rapid ventricular response PG Care Time/CCT Total # of Minutes Spent Total Time Spent with Patient: Total time spent is greater than 50% in coordination of care (as documented) at patient's floor/unit and/or counseling patient: Coding Level of Care Code 28483 INT INP/OBS CARE 3/75MIN Diagnoses Atrial flutter with rapid ventricular response I48.92 CAD (coronary artery disease) I25.10
[2023-12-25] MEDS: AMIODARONE / D5W 150 MG/100 ML BAG IV STA (22:49)
[2023-12-25] MEDS: AMIODARONE IV BOLUS & DRIP IV STA (22:55)
[2023-12-25] MEDS: AMIODARONE / D5W 360 MG/200 ML BAG IV ONE (23:02)
[2023-12-26] MEDS: AMIODARONE / D5W 360 MG/200 ML BAG IV SCH (05:06)
[2023-12-26 06:03] LABS: BUN Creatinine Ratio 15.4 (10-20); Calcium 9.1 mg/dl (8.6-10.3); Creatinine Clr Calc Pharmacy 84.3 ml/min; Est GFR (African American) 84.5 ml/min; Est GFR (Non-African American) 72.9 ml/min; Potassium 3.9 mmol/L (3.5-5.1)
[2023-12-26 06:49] LABS: Basophils # (auto) 0.05 K/uL (0.00-0.20); Basophils % (auto) 0.5 %; Hematocrit (blood only) 44.7 % (42.0-52.0); Hemoglobin 15.7 g/dl (14.0-18.0); Immature Granulocytes # (auto) 0.04 K/uL (0.01-0.20); Immature Granulocytes % (auto) 0.4 %; Lymphocytes # (auto) 2.55 K/uL (1.20-3.40); Lymphocytes % (auto) 24.6 %; Mean Corpuscular Hemoglobin 32.3 pg (25.0-34.0); Mean Corpuscular Hgb Conc 35.1 g/dL (32.0-36.0); Mean Platelet Volume 11.6 fL (9.4-12.4); Monocytes # (auto) 0.76 K/uL (0.11-0.59); Monocytes % (auto) 7.3 %; Neutrophils # (auto) 6.88 K/uL (1.40-6.50); Neutrophils % (auto) 66.2 %; Platelet Count 215 K/uL (130-400); RDW Coefficient of Variation 13.3 % (11.5-14.5); RDW Standard Deviation 44.6 fL (36.4-46.3); Red Blood Count 4.86 M/uL (4.70-6.10); White Blood Count 10.38 K/ul (4.8-10.8)
[2023-12-26 07:27] LABS: Estimated Average Glucose 146 mg/dl; Hemoglobin A1C 6.7 % (4.5-5.6)
--- NOTE | 2023-12-26 08:50 | Cardiology Progress Note ---
Date of Service December 26, 2023 Assessment & Plan (1) Atrial flutter with rapid ventricular response: (2) CAD (coronary artery disease): (3) Hypertension: Plan 1. Atrial flutter: He remains in atrial flutter on amiodarone, however he has variable AV conduction but his rate is still somewhat fast. We should get better rate control although I want to be cautious about AV delon blockers since he has reported hypotension and perhaps he has bradycardia, with flutter there is often little margin between rapid heart rates and slow heart rates. I am going to start metoprolol tartrate 25 mg every 8 hours which will allow us to make more rapid changes in his medical regimen. I am going to continue oral amiodarone, if he remains in atrial flutter on Thursday we can consider cardioversion. Tomorrow we can consider adding oral amiodarone (I like to overlap by 24 hours). 2. Coronary artery disease: This is by report. However, he is on a medical regimen which includes aspirin in addition to Xarelto, atorvastatin and isosorbide mononitrate. These are all commonly used in the setting of coronary disease. I think we will assume he has a history of coronary disease and treat him accordingly. His troponin was negative and he is asymptomatic so I am not altered this therapy. 3. Hypertension: He seems to have quite labile blood pressure, he has had episodes of hypotension prompting discontinuation of medications. He is quite hypertensive but I do not want to overshoot again, so I am going to start low- dose metoprolol with hold orders for hypotension and bradycardia. Admission and Anticipated Discharge Date Admission Date: December 25, 2023 Subjective Patient examined and chart reviewed. In brief, he apparently had newly diagnosed atrial fibrillation or flutter around the end of November 2023 and was started on Xarelto (which he has continued) and underwent cardioversion. I assume he had a DON but I am not sure and I do not have records. He had return of atrial fibrillation although the time course is unknown as he is unaware of it. I believe his living situation provides him medications so I assume he has been taking Xarelto although he does not know. It is reported that he was hypotensive following cardioversion on metoprolol, here he received intravenous diltiazem and had hypotension again. Now he is quite hypertensive. He does not seem symptomatic with this. Following presentation here he was started on intravenous amiodarone, he has remained in atrial flutter and remains asymptomatic. At the time my examination he was feeling well, he was resting in bed and has no cardiovascular complaints. He had been held n.p.o. for cardioversion today. Physical Exam Physical Exam: Constitutional: Alert, cooperative and in no distress. He is obese. HEENT: Unremarkable Neck: No jugular venous distention, carotid pulses are irregular but otherwise normal and equal bilaterally without bruits. Pulmonary: Clear to auscultation bilaterally. Cardiac: Irregular rapid rhythm with no murmur, gallop or rub. Abdomen: Soft, nontender with normal bowel sounds. Extremities: No edema. Neurologic: No focal findings. Skin: No rash, ecchymoses or petechiae. Results & Data Vital Signs (Past 12 Hours) Vital Signs Temp Pulse Resp BP Pulse Ox O2 Del Method 12/26/23 08:00 36.7 C 119 H 22 164/87 H 98 Room Air 12/26/23 03:24 36.6 C 107 H 22 103/77 94 Room Air 12/26/23 00:15 36.7 C 96 H 20 127/74 94 Room Air 12/25/23 22:58 109 H 132/75 Laboratory Results Cardiac Enzymes 12/25/23 Range/Units 12:21 AST 17 (13-39) U/L Troponin I High Sens 12.0 (0-20) pg/ml B-Natriuretic Peptide 69 (0-100) pg/ml Coagulation 12/25/23 12/25/23 Range/Units 12:21 14:08 PT Cancelled 11.8 B-Natriuretic Peptide 69 (0-100) pg/ml CBC 12/25/23 12/26/23 Range/Units 12:21 05:28 WBC 10.40 10.38 (4.8-10.8) K/ul RBC 5.24 4.86 (4.70-6.10) M/uL Hgb 16.7 15.7 (14.0-18.0) g/dl Hct 48.1 44.7 (42.0-52.0) % Plt Count 249 215 (130-400) K/uL Neut # (Auto) 7.01 H 6.88 H (1.40-6.50) K/uL Lymph # (Auto) 2.32 2.55 (1.20-3.40) K/uL Martin # (Auto) 0.85 H 0.76 H (0.11-0.59) K/uL Eos # (Auto) 0.11 0.10 (0.00-0.50) K/uL Baso # (Auto) 0.07 0.05 (0.00-0.20) K/uL Comprehensive Metabolic Panel 12/25/23 12/26/23 Range/Units 12:21 05:28 Sodium 133 L 133 L (136-145) mmol/L Potassium 4.0 3.9 (3.5-5.1) mmol/L Chloride 99 100 (98-107) mmol/L Carbon Dioxide 26 24 (21-32) mmol/L BUN 16 16 (6-23) mg/dl Creatinine 1.14 1.04 (0.6-1.4) mg/dl Glucose 137 H 133 H (70-99(Fasting)) mg/dl Calcium 9.6 9.1 (8.6-10.3) mg/dl AST 17 (13-39) U/L ALT 15 (7-52) U/L Alkaline Phosphatase 53 (34-104) U/L Total Protein 7.3 (6.0-8.3) gm/dl Albumin 4.2 (3.4-5.0) gm/dl Intake and Output 12/25/23 12/26/23 12/26/23 22:59 06:59 14:59 Intake Total 2.25 / 306.083 300 / 306.083 Output Total 200 / 500 300 / 500 Balance -197.75 / -193.917 0 / -193.917 Intake: IV 2.25 / 306.083 300 / 306.083 Amiodarone / D5w 150 mg In 100 100 / 100 ml @ 600 mls/hr IV NOW STA Rx#: [id number] Amiodarone / D5w 360 mg In 200 200 / 200 ml @ 1 MG/MIN 33.333 mls/hr IV ONE ONE Rx#:[id number] dilTIAZem HCL 125 mg In 2.25 / 6.083 Dextrose 5% 100 ml @ 0 MG/HR IV .Q0M [facility] Rx#:[id number] Output: Urine 200 / 500 300 / 500 Other: Other Intake Source NPO NPo Weight 123 kg 123.5 kg Weight Measurement Method [facility] [place] [facility] Diagnostic Findings Telemetry: Atrial flutter since presentation, 2-1 on presentation and now variable conduction. Heart rate a little over 100 with little change on IV amiodarone since initiation. PG Care Time/CCT Total # of Minutes Spent Total Time Spent with Patient: Total time spent is greater than 50% in coordination of care (as documented) at patient's floor/unit and/or counseling patient: Coding Level of Care Code 81473 SUB INP/OBS CARE 3/50MIN Diagnoses Atrial flutter with rapid ventricular response I48.92 CAD (coronary artery disease) I25.10 Hypertension I10
--- NOTE | 2023-12-26 10:14 | Electrocardiogram Report ---
Test Reason : Blood Pressure : / mmHG Vent. Rate : 158 BPM Atrial Rate : 000 BPM P-R Int : 000 ms QRS Dur : 124 ms QT Int : 294 ms P-R-T Axes : 000 104 040 degrees QTc Int : 476 ms Atrial flutter with 2 to 1 block Right bundle branch block Abnormal ECG No previous ECGs available Confirmed by Benjamín Mccray ([id number]) on 12/26/2023 10:14:21 AM Referred By: REFERRED SELF Confirmed By:Benjamín Mccray
--- NOTE | 2023-12-26 10:21 | Electrocardiogram Report ---
Test Reason : Blood Pressure : / mmHG Vent. Rate : 113 BPM Atrial Rate : 117 BPM P-R Int : 000 ms QRS Dur : 122 ms QT Int : 336 ms P-R-T Axes : 000 073 031 degrees QTc Int : 460 ms Atrial flutter with variable A-V block Right bundle branch block Abnormal ECG When compared with ECG of 25-DEC-2023 12:16, (unconfirmed) HR has decreased Confirmed by Benjamín Mccray ([id number]) on 12/26/2023 10:21:23 AM Referred By: REFERRED SELF Confirmed By:Benjamín Mccray
[2023-12-26] MEDS: ASPIRIN 81 MG ECTAB PO SCH (10:31)
[2023-12-26] MEDS: FUROSEMIDE 40 MG TAB PO SCH (10:31)
[2023-12-26] MEDS: ISOSORBIDE MONO EXTENDED REL 30 MG TABCR PO SCH (10:31)
[2023-12-26] MEDS: METOPROLOL TARTRATE 25 MG TAB PO SCH (10:31)
[2023-12-26] MEDS: TAMSULOSIN HCL 0.4 MG CAP PO SCH (10:31)
--- NOTE | 2023-12-26 21:34 | Hospitalist Progress Note ---
Date of Service December 26, 2023 Assessment & Plan (1) Atrial flutter with rapid ventricular response: Plan: Diagnosed with incidental atrial fibrillation with RVR December 07 pre-op colonoscopy and started on Xarelto. Treated with cardioversion and metoprolol actually discontinued at that time due to post cardioversion hypotension Returned to ER from cariology office with RVR and started diltiazem and discharged from ER. 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 At risk of hypotension for the rest of the day especially with his other anti-hypertensives Discontinue all rate controlling medications at this time - reportedly not symptomatic even with his rates in 150s Discontinue lisinopril to allow increased BP Plan to let diltiazem come out of his system then consult cardiology for consideration of DON cardioversion (he has only been on Xarelto since December 07) Patient now on amiodarone IV an PO. will overlap. ELECTRICAL CARDIOVERSION SCHEDULED FOR THURSDAY (2) Acute heart failure with preserved ejection fraction: Plan: Suspect rate related pulmonary edema contributing towards his shortness of breath Should improve with rate control with cardioversion Continue on his usual dose of furosemide given current hypotension will not increase (3) CAD (coronary artery disease): Plan: Unknown history of this Continue aspirin, atorvastatin Not on metoprolol due to hypotension following cardioversion Hold lisinopril due to hypotension (4) Diabetes mellitus: Plan: HbA1c with a.m. labs Hold metformin and glimepiride Since he took this this morning we will just use NovoLog for correction factor only but may need basal insulin as glimepiride is metabolized/excreted (5) Benign prostatic hyperplasia with urinary obstruction: Plan: History of urinary obstruction, no current concern for this Continue tamsulosin (6) Sleep apnea: Plan: Noncompliant with CPAP outpatient Plan VTE prophylaxis - Xarelto Diet - type 2 diabetes Disposition - admit to PCU Admission and Anticipated Discharge Date Admission Date: December 25, 2023 Subjective Patient reports no new symptoms. Review of Systems Review of Systems: All systems reviewed & are unremarkable except as noted in HPI & below Physical Exam Constitutional: WD/WN, vitals as above Eyes: PERRL Amblyopia ENMT: external ear and nose normal, oropharynx normal Respiratory: normal respiratory effort; no respiratory distress Auscultation: lungs clear to auscultation bilaterally Cardiovascular: Rate/Rhythm: + tachycardic and + irregularly irregular Heart Sounds: no murmur Extremities: normal capillary refill and + pedal edema (Trace bilateral equal); no calf tenderness Gastrointestinal (Abdomen): normal bowel sounds, soft, nontender, no hepatosplenomegaly Musculoskeletal: no cyanosis or clubbing, extremities motor strength 5/5 Skin: no rashes, warm and dry Neurologic: moves all extremities and awake; not confused Psychiatric: A+Ox3, euthymic affect Genitourinary: no CVA tenderness Results & Data Results & Data Vital Signs (Past 12 Hours) Vital Signs Temp Pulse Pulse Resp BP Pulse Ox O2 Del Method 12/26/23 19:40 36.8 C 93 H 18 127/89 95 Room Air 12/26/23 18:12 95 H 12/26/23 16:00 36.5 C 80 20 130/89 96 Room Air 12/26/23 12:00 36.5 C 120 H 20 160/89 H 97 Room Air PG Care Time/CCT Total # of Minutes Spent Total Time Spent with Patient: Total time spent is greater than 50% in coordination of care (as documented) at patient's floor/unit and/or counseling patient: Coding Level of Care Code 74906 SUB INP/OBS CARE 2/35MIN Diagnoses Atrial flutter with rapid ventricular response I48.92 Acute heart failure with preserved ejection fraction I50.31 CAD (coronary artery disease) I25.10 Diabetes mellitus E11.9 Benign prostatic hyperplasia with urinary obstruction N40.1; N13.8 Sleep apnea G47.30
[2023-12-27 07:05] LABS: Hematocrit (blood only) 45.2 % (42.0-52.0); Hemoglobin 15.6 g/dl (14.0-18.0); Mean Corpuscular Hemoglobin 31.8 pg (25.0-34.0); Mean Corpuscular Hgb Conc 34.5 g/dL (32.0-36.0); Mean Corpuscular Volume 92.1 fL (80.0-100.0); Mean Platelet Volume 11.5 fL (9.4-12.4); Platelet Count 198 K/uL (130-400); RDW Coefficient of Variation 13.3 % (11.5-14.5); RDW Standard Deviation 44.4 fL (36.4-46.3); Red Blood Count 4.91 M/uL (4.70-6.10); White Blood Count 9.11 K/ul (4.8-10.8)
[2023-12-27 07:25] LABS: BUN Creatinine Ratio 20.9 (10-20); Calcium 9.1 mg/dl (8.6-10.3); Creatinine Clr Calc Pharmacy 79.8 ml/min; Est GFR (Non-African American) 68.1 ml/min; Potassium 3.6 mmol/L (3.5-5.1)
--- NOTE | 2023-12-27 12:29 | Cardiology Progress Note ---
Date of Service December 27, 2023 Assessment & Plan (1) Atrial flutter with rapid ventricular response: (2) CAD (coronary artery disease): (3) Hypertension: Plan Patient is doing well but remains in atrial flutter. Atrial flutter his rate is controlled, transition from IV to oral amiodarone and continue oral metoprolol. Hold breakfast tomorrow, if he remains in atrial flutter we will plan electrical cardioversion. He remains anticoagulated with rivaroxaban. No indication of ongoing myocardial ischemia or congestive heart failure. BP favorable currently. Admission and Anticipated Discharge Date Admission Date: December 25, 2023 Subjective Uneventful night, patient feels well. He denies chest pain, dyspnea, or subjective palpitations. Telemetry shows persistent atrial flutter with improved rate control (90-100 bpm). Physical Exam Physical Exam: No distress. BP normotensive. Pulse 100 bpm and irregular. Respirations 18. Skin: no ecchymoses or generalized lesions. HEENT: unremarkable. Neck: JVP at the clavicle at 90 degrees, no carotid bruits. Lungs: Mildly decreased breath sounds but clear. Cardiac: irregular rhythm, normal S1-2, no murmur. Abdomen: benign. Extremities: no edema, pulses intact. Neurologic: normal affect and conversation, nonfocal. Results & Data Vital Signs (Past 12 Hours) Vital Signs Temp Pulse Resp BP BP Pulse Ox O2 Del Method 12/27/23 10:55 98.2 F 101 H 18 100/81 94 Room Air 12/27/23 07:24 97.9 F 100 H 18 119/81 94 Room Air 12/27/23 05:38 88 20 98/78 L 12/27/23 03:09 98.2 F 88 20 113/75 93 Room Air Laboratory Results Hemoglobin 15.6. Normal electrolytes, BUN 23, creatinine 1.1. PG Care Time/CCT Total # of Minutes Spent Total Time Spent with Patient: Total time spent is greater than 50% in coordination of care (as documented) at patient's floor/unit and/or counseling patient: Coding Level of Care Code 87795 SUB INP/OBS CARE 2/35MIN Diagnoses Atrial flutter with rapid ventricular response I48.92 CAD (coronary artery disease) I25.10 Hypertension I10
[2023-12-27] MEDS ORDERED: Nursing to Pharmacy Communication SCH (12:45)
[2023-12-27] MEDS: AMIODARONE 200 MG TAB PO SCH (16:40)
--- NOTE | 2023-12-27 22:39 | Hospitalist Progress Note ---
Date of Service December 27, 2023 Assessment & Plan (1) Atrial flutter with rapid ventricular response: Plan: Diagnosed with incidental atrial fibrillation with RVR December 07 pre-op colonoscopy and started on Xarelto. Treated with cardioversion and metoprolol actually discontinued at that time due to post cardioversion hypotension Returned to ER from cariology office with RVR and started diltiazem and discharged from ER. 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 At risk of hypotension for the rest of the day especially with his other anti-hypertensives Discontinue all rate controlling medications at this time - reportedly not symptomatic even with his rates in 150s Discontinue lisinopril to allow increased BP Plan to let diltiazem come out of his system then consult cardiology for consideration of DON cardioversion (he has only been on Xarelto since December 07) Patient now on amiodarone IV an PO. will overlap. ELECTRICAL CARDIOVERSION SCHEDULED FOR THURSDAY Patient reports no new symptoms. Reviewed BMP on 12/26 (2) Acute heart failure with preserved ejection fraction: Plan: Suspect rate related pulmonary edema contributing towards his shortness of breath Should improve with rate control with cardioversion Continue on his usual dose of furosemide given current hypotension will not increase (3) CAD (coronary artery disease): Plan: Unknown history of this Continue aspirin, atorvastatin Not on metoprolol due to hypotension following cardioversion Hold lisinopril due to hypotension (4) Diabetes mellitus: Plan: HbA1c with a.m. labs Hold metformin and glimepiride Since he took this this morning we will just use NovoLog for correction factor only but may need basal insulin as glimepiride is metabolized/excreted (5) Benign prostatic hyperplasia with urinary obstruction: Plan: History of urinary obstruction, no current concern for this Continue tamsulosin (6) Sleep apnea: Plan: Noncompliant with CPAP outpatient Plan VTE prophylaxis - Xarelto Diet - type 2 diabetes Disposition - admit to PCU Admission and Anticipated Discharge Date Admission Date: December 25, 2023 Subjective Patient reports doing well. He has no new complaints. Review of Systems Review of Systems: All systems reviewed & are unremarkable except as noted in HPI & below Physical Exam Constitutional: WD/WN, vitals as above Eyes: PERRL ENMT: external ear and nose normal, oropharynx normal Respiratory: normal respiratory effort; no respiratory distress Auscultation: lungs clear to auscultation bilaterally Cardiovascular: Rate/Rhythm: + tachycardic and + irregularly irregular Heart Sounds: no murmur Extremities: normal capillary refill and + pedal edema (Trace bilateral equal); no calf tenderness Gastrointestinal (Abdomen): normal bowel sounds, soft, nontender, no hepatosplenomegaly Musculoskeletal: no cyanosis or clubbing, extremities motor strength 5/5 Skin: no rashes, warm and dry Neurologic: moves all extremities and awake; not confused Psychiatric: A+Ox3, euthymic affect Genitourinary: no CVA tenderness Results & Data Results & Data Vital Signs (Past 12 Hours) Vital Signs Temp Pulse Pulse Resp BP BP Pulse Ox 12/27/23 19:55 36.7 C 94 H 20 105/76 95 12/27/23 16:28 36.9 C 84 18 121/88 95 12/27/23 16:01 101 H 12/27/23 16:00 99 H 12/27/23 14:34 115/80 12/27/23 10:55 36.8 C 101 H 18 100/81 94 O2 Del Method 12/27/23 19:55 Room Air 12/27/23 16:28 Room Air 12/27/23 16:01 12/27/23 16:00 12/27/23 14:34 12/27/23 10:55 Room Air PG Care Time/CCT Total # of Minutes Spent Total Time Spent with Patient: Total time spent is greater than 50% in coordination of care (as documented) at patient's floor/unit and/or counseling patient: Coding Level of Care Code 98170 SUB INP/OBS CARE 2/35MIN Diagnoses Atrial flutter with rapid ventricular response I48.92 Acute heart failure with preserved ejection fraction I50.31 CAD (coronary artery disease) I25.10 Diabetes mellitus E11.9 Benign prostatic hyperplasia with urinary obstruction N40.1; N13.8 Sleep apnea G47.30
[2023-12-28] MEDS ORDERED: PROPOFOL IV EMULSION 10 MG/ML 20 ML VIAL IV ONE (06:55)
[2023-12-28] MEDS ORDERED: LIDOCAINE 2% 2 ML VIAL/AMP(20MG/ML) INFIL ONE (06:55)
[2023-12-28 07:04] LABS: Hemoglobin 15.5 g/dl (14.0-18.0); Mean Corpuscular Hgb Conc 34.4 g/dL (32.0-36.0); Mean Platelet Volume 11.5 fL (9.4-12.4); Platelet Count 201 K/uL (130-400); RDW Coefficient of Variation 13.2 % (11.5-14.5); RDW Standard Deviation 45.3 fL (36.4-46.3); Red Blood Count 4.84 M/uL (4.70-6.10)
--- NOTE | 2023-12-28 07:17 | Anesthesiology Consultation ---
Date of Service December 28, 2023 Assessment & Plan Chart Review Chart Review: Acceptable Risk for Surgery and Patient NOT seen in Pre Admission Testing Consults Requested none ASA ASA4 Proposed Anesthesia Anesthesia Type: General Risk / Benefits Reviewed With: PT / POA / Parent / Guardian, Accepts Plan and Informed Consent Obtained History Surgery Operation Date: 12/28/23 07:30 Proposed Procedures p Cardioversion Sash Installer w/Anesthesia - Misha Oshea MD Height/Weight Height: 5 ft 7 in Weight: 122.47 kg Allergies Allergy/AdvReac Type Severity Reaction Status Date / Time No Known Allergies Allergy Verified 05/16/19 14:43 Medications Home Medications Medication Instructions Recorded Confirmed Last Taken Lactobacillus acidophilus 100 mg 100 mg PO BID 03/29/19 12/25/23 Unknown (1 billion cell) capsule aspirin 81 mg tablet 162 mg PO DAILY 03/29/19 12/25/23 Unknown isosorbide mononitrate 30 mg 30 mg PO DAILY 03/29/19 12/25/23 Unknown tablet,extended release 24 hr ketoconazole 2 % shampoo 1 appln topical ONCE 03/29/19 05/16/19 Unknown lisinopril 5 mg tablet 2.5 mg PO DAILY 03/29/19 12/25/23 Unknown triamcinolone acetonide 0.1 % 1 appln topical DAILY 03/29/19 05/16/19 Unknown topical cream tamsulosin 0.4 mg capsule 0.4 mg PO DAILY #90 caps 09/02/23 12/25/23 Unknown atorvastatin 10 mg tablet 10 mg PO HS 12/25/23 12/25/23 Unknown diltiazem HCl 240 mg 240 mg PO DAILY 12/25/23 12/25/23 Unknown tablet,extended release 24 hr furosemide 40 mg tablet 40 mg PO BID 12/25/23 12/25/23 Unknown glimepiride 2 mg tablet 2 mg PO DAILY 12/25/23 12/25/23 Unknown metformin 500 mg tablet,extended 500 mg PO BID 12/25/23 12/25/23 Unknown release 24 hr potassium chloride 20 mEq/15 mL 20 meq PO BID 12/25/23 12/25/23 Unknown oral liquid rivaroxaban 20 mg tablet (Xarelto) 20 mg PO HS 12/25/23 12/25/23 Unknown sertraline 100 mg tablet 100 mg PO HS 12/25/23 12/25/23 Unknown Active Medications Generic Name Dose Route Start Last Admin Trade Name Cade PRN Reason Stop Dose Admin Amiodarone HCl 200 mg 12/27/23 17:00 12/27/23 16:40 Amiodarone 200 Mg Tab PO 01/26/24 16:59 200 mg TIDM SATISH Administration Aspirin 81 mg 12/26/23 09:00 12/27/23 08:19 Aspirin 81 Mg Ectab PO 01/25/24 08:59 81 mg DAILY SATISH Administration Atorvastatin Calcium 10 mg 12/25/23 21:00 12/27/23 20:33 Atorvastatin 10 Mg Tab PO 01/24/24 20:59 10 mg HS SATISH Administration Furosemide 40 mg 12/26/23 09:00 12/27/23 16:41 Furosemide 40 Mg Tab PO 01/25/24 08:59 40 mg BID17 SATISH Administration Insulin Aspart 0 units 12/25/23 21:00 12/27/23 20:34 Insulin Aspart Per Unit Charge SC 01/24/24 20:59 1 units ACHS SATISH Administration Isosorbide Mononitrate 30 mg 12/26/23 09:00 12/27/23 08:19 Isosorbide [place] Extended Rel 30 Mg Tabcr PO 01/25/24 08:59 30 mg DAILY SATISH Administration Metoprolol Tartrate 25 mg 12/26/23 09:00 12/28/23 06:07 Metoprolol Tartrate 25 Mg Tab PO 01/25/24 08:59 25 mg Q8 SATISH Administration Potassium Chloride 20 meq 12/25/23 21:00 12/27/23 20:37 Potassium Chloride 20 Meq/15 Ml Udc PO 01/24/24 20:59 20 meq BID SATISH Administration Rivaroxaban 20 mg 12/25/23 21:00 12/27/23 20:33 Rivaroxaban 20 Mg Tab PO 01/24/24 20:59 20 mg HS SATISH Administration Sertraline HCl 100 mg 12/25/23 21:00 12/27/23 20:33 Sertraline Hcl 100 Mg Tablet PO 01/24/24 20:59 100 mg HS SATISH Administration Tamsulosin HCl 0.4 mg 12/26/23 09:00 12/27/23 08:18 Tamsulosin Hcl 0.4 Mg Cap PO 01/25/24 08:59 0.4 mg DAILY SATISH Administration NPO Date Last Intake of Fluids: 12/28/23 Time Last Intake of Fluids: 06:30 Last Intake of Fluids Comment: sip with meds Date Last Intake of Solids: 12/27/23 Past Medical History Medical History Benign prostatic hyperplasia with urinary obstruction Exercise / Class Metabolic Activity III < 4 Walking/Shop/Light housework Past Anesthesia History No Hx of Anesthesia Complications and No Family Hx of Anesthesia Complications History of PONV No Hx of PONV and No Hx of Motion Sickness Social History Smoking Status: Never smoker Do You Dip or Chew Tobacco: No Hx Alcohol Use: No Hx Substance Use: No substance use type: does not use Physical Exam Vital Signs Last Vital Signs Temp 36.6 C 12/28/23 03:17 Pulse 93 H 12/28/23 07:07 Resp 18 12/28/23 07:07 BP 143/83 H 12/28/23 07:07 Pulse Ox 96 12/28/23 07:07 O2 Del Method Room Air 12/28/23 07:07 Constitutional + morbidly obese ENMT Mouth: no dentition abnormality Thyromental Distance: > or= 3.5 Finger Breadths Mallampati Class: II Neck normal visual inspection, trachea midline and + facial hair; neck extension not limited Respiratory normal respiratory effort and + respiratory distress Auscultation: + diminished lung sounds and + crackles Cardiovascular Rate/Rhythm: + abnormal rate and + abnormal rhythm Vessels: no carotid bruit Musculoskeletal Spine: normal cervical ROM and no pain with cervical ROM Extremities: full ROM of extremities Skin + rash; no lesions Neurologic moves all extremities Motor/Sensory: no sensory deficit Psychiatric Orientation: alert and oriented x 3 Testing Laboratory Results 12/28/23 06:21 PT 11.8 Seconds (9.0-12.0) 12/25/23 14:08 INR 1.1 (0.9-1.1) 12/25/23 14:08 Hemoglobin A1c 6.7 % (4.5-5.6) H 12/26/23 05:28 12/27/23 19:59 POC Glucose 153 H
--- NOTE | 2023-12-28 07:20 | Communication Note ---
Date of Service: December 28, 2023 12/25/2023=cxr CM w/ pulm. vasc. congestion 12/25/2023-EKG- A jero @ 113;RBBB
[2023-12-28] MEDS ORDERED: ePHEDrine sulfate 50 MG/ML AMP IV PRN (07:21)
[2023-12-28 07:31] LABS: BUN Creatinine Ratio 16.5 (10-20); Calcium 8.9 mg/dl (8.6-10.3); Est GFR (African American) 74.8 ml/min; Est GFR (Non-African American) 64.6 ml/min; Potassium 3.3 mmol/L (3.5-5.1)
--- NOTE | 2023-12-28 07:38 | Anesthesiology Progress Note ---
Date of Service December 28, 2023 Anesthesia Post Procedure Vital Signs Vital Signs: Temp Pulse Pulse Resp BP BP Pulse Ox 12/28/23 07:25 66 16 104/66 96 12/28/23 07:07 93 H 18 143/83 H 96 12/28/23 05:00 95 H 20 142/93 H 96 12/28/23 03:17 36.6 C 101 H 18 120/96 97 12/27/23 23:04 36.5 C 106 H 18 120/99 96 12/27/23 19:55 36.7 C 94 H 20 105/76 95 12/27/23 16:28 36.9 C 84 18 121/88 95 12/27/23 16:01 101 H 12/27/23 16:00 99 H 12/27/23 14:34 115/80 12/27/23 10:55 36.8 C 101 H 18 100/81 94 O2 Del Method 12/28/23 07:25 Room Air 12/28/23 07:07 Room Air 12/28/23 05:00 Room Air 12/28/23 03:17 Room Air 12/27/23 23:04 Room Air 12/27/23 19:55 Room Air 12/27/23 16:28 Room Air 12/27/23 16:01 12/27/23 16:00 12/27/23 14:34 12/27/23 10:55 Room Air Transfer of Care Handoff Completed per policy Notes Mental Status: alert / awake / arousable Patient Amnestic to Procedure: Yes Nausea / Vomiting: adequately controlled Pain: adequately controlled Airway Patency, RR, SpO2: stable & adequate BP & HR: stable & adequate Hydration State: stable & adequate Anesthetic Complications: no major complications apparent
--- NOTE | 2023-12-28 09:03 | Electrocardiogram Report ---
Test Reason : Blood Pressure : / mmHG Vent. Rate : 071 BPM Atrial Rate : 071 BPM P-R Int : 208 ms QRS Dur : 140 ms QT Int : 460 ms P-R-T Axes : 029 046 042 degrees QTc Int : 499 ms Sinus rhythm with Premature supraventricular complexes Right bundle branch block Abnormal ECG When compared with ECG of 25-DEC-2023 14:50, Sinus rhythm has replaced Atrial flutter Vent. rate has decreased BY 42 BPM Confirmed by Misha Oshea ([id number]) on 12/28/2023 9:02:42 AM Referred By: REFERRED SELF Confirmed By:Misha Oshea
--- NOTE | 2023-12-28 11:23 | Cardiology Progress Note ---
Date of Service December 28, 2023 Assessment & Plan (1) Atrial flutter with rapid ventricular response: (2) CAD (coronary artery disease): (3) Hypertension: Plan Patient doing well post cardioversion this morning Okay for discharge on amiodarone 200 mg 3 times daily for 1 week, then 200 mg twice daily (ultimately likely 200 mg daily). Remain off diltiazem, amiodarone will take its place. Continue rivaroxaban and aspirin, may not need aspirin long-term. May need to temporarily increase his potassium supplement (potassium 3.3 today). Given low normal BP, lisinopril could be resumed as outpatient (hold for now). Continue her usual diuretic dose (furosemide 40 mg twice daily). Continue atorvastatin and isosorbide. Follow-up with his usual cardiology provider, if local follow-up desired can arrange [place] [facility]. Admission and Anticipated Discharge Date Admission Date: December 25, 2023 Subjective Uneventful night. Patient underwent successful electrical cardioversion this morning, remains in sinus rhythm. No chest pain, dyspnea, palpitations, or lightheadedness. Physical Exam Physical Exam: No distress. BP normotensive. Pulse 76 and regular. Skin: no ecchymoses or generalized lesions. HEENT: unremarkable. Neck: JVP at the clavicle at 90 degrees, no carotid bruits. Lungs: Mildly decreased breath sounds but clear. Cardiac: regular rhythm, normal S1-2, no murmur. Abdomen: benign. Extremities: no edema, pulses intact. Neurologic: normal affect and conversation, nonfocal. Results & Data Vital Signs (Past 12 Hours) Vital Signs Temp Pulse Resp BP BP Pulse Ox O2 Del Method 12/28/23 08:06 98.1 F 77 19 111/58 L 95 Room Air 12/28/23 07:40 66 16 104/75 96 Room Air 12/28/23 07:25 66 16 104/66 96 Room Air 12/28/23 07:07 93 H 18 143/83 H 96 Room Air 12/28/23 05:00 95 H 20 142/93 H 96 Room Air 12/28/23 03:17 97.9 F 101 H 18 120/96 97 Room Air Laboratory Results Potassium 3.3, BUN 19, creatinine 1.15 Diagnostic Findings Post cardioversion ECG showed sinus rhythm at 71 bpm with occasional PACs and right bundle branch block. PG Care Time/CCT Total # of Minutes Spent Total Time Spent with Patient: Total time spent is greater than 50% in coordination of care (as documented) at patient's floor/unit and/or counseling patient: Coding Level of Care Code 04832 SUB INP/OBS CARE 3/50MIN Diagnoses Atrial flutter with rapid ventricular response I48.92 CAD (coronary artery disease) I25.10 Hypertension I10
--- NOTE | 2023-12-28 11:24 | Cardioversion ---
Date of Service December 28, 2023 PG Electrical Cardioversion Rp Electrical Cardioversion Report Indication: Atrial flutter Written consent was obtained after the risks and benefits were explained, including but not limited to pain, thermal burn, allergic reaction, aspiration, airway obstruction, laryngospasm, infection, hypotension, and cardiorespiratory arrest. Sedation was supervised by Anesthesiology. The biphasic defibrillator was set to 100 joules of energy and synched. After confirmation of sedation and "all clear" safety check the synchronized shock was delivered. This resulted in successful conversion of the dysrhythmia back into sinus rhythm. See nursing notes for dosages and times. There were no complications and the patient recovered uneventfully from the procedure. Coding Level of Care Code 86608 CARDIOVERSION, ELECTIVE Additional Codes Electrical Cardioversion Report ([id number])
--- NOTE | 2023-12-28 11:25 | Discharge Summary ---
Date of Service December 28, 2023 Admission HPI Per Admitting Provider Shaka Neri is a 68-year-old male with mild intellectual developmental disability who presents to the emergency room with tachycardia. The patient is unable to give me any history and his caregiver has left for the day. He reports no current chest pain, shortness of breath, palpitations, presyncope. Information taken from the nurse at [facility] Zonia Freedman. On December 07 he was going for a colonoscopy at [facility] and was noted incidentally to be in atrial fibrillation with RVR. This was a new diagnosis at that time and he was admitted to the hospital and cardioverted the same day. He was started on Xarelto for stroke prophylaxis. Echocardiogram showed LVEF 55-60% with no regional wall motion abnormalities. His metoprolol was discontinued at that time due to hypotension s/p cardioversion while in normal sinus rhythm. He followed up with a [facility] senior field service engineer Dr Moreno and his HR was still elevated to be point he recommended going back to [facility] ER. Unclear what they gave him in the emergency room but he was discharged and started on Diltiazem ER 240mg PO which they have had trouble getting from the pharmacy therefore he only took his first dose of this today. He was noted to have tachycardia today and some concern he was short of breath therefore Principal Diagnosis atrial flutter with rapid ventricular response Discharge Exam Constitutional WD/WN, vitals as above Eyes PERRL ENMT external ear and nose normal, oropharynx normal Respiratory normal respiratory effort; no respiratory distress Auscultation: lungs clear to auscultation bilaterally Cardiovascular Rate/Rhythm: regular rate and regular rhythm Heart Sounds: no murmur Extremities: normal capillary refill and + pedal edema (Trace bilateral equal); no calf tenderness Gastrointestinal (Abdomen) normal bowel sounds, soft, nontender, no hepatosplenomegaly Musculoskeletal no cyanosis or clubbing, extremities motor strength 5/5 Skin no rashes, warm and dry Neurologic moves all extremities and awake; not confused Psychiatric A+Ox3, euthymic affect Genitourinary no CVA tenderness Discharge Data Allergies Allergy/AdvReac Type Severity Reaction Status Date / Time No Known Allergies Allergy Verified 05/16/19 14:43 Consultations 12/25/23 14:29 ED Decision to Admit Stat 12/25/23 14:41 Consult Cardiology Routine 12/28/23 14:12 Consult Anesthesiology Routine Procedures Performed Operation Date: 12/28/23 07:30 Actual Procedures p Cardioversion - Misha Oshea MD Hospital Course (1) Atrial flutter with rapid ventricular response: Diagnosed with incidental atrial fibrillation with RVR December 07 pre-op colonoscopy and started on Xarelto. Treated with cardioversion and metoprolol actually discontinued at that time due to post cardioversion hypotension Returned to ER from cariology office with RVR and started diltiazem and discharged from ER. 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 At risk of hypotension for the rest of the day especially with his other anti-hypertensives Discontinued all rate controlling medications at this time - reportedly not symptomatic even with his rates in 150s Discontinued lisinopril to allow increased BP Plan was to let diltiazem come out of his system then consult cardiology for consideration of DON cardioversion (he has only been on Xarelto since December 07) Patient then was placed on amiodarone IV and then overlapped with PO amiodarone. will overlap. ELECTRICAL CARDIOVERSION COMPLETED on 12/27 Patient reported no new symptoms. Ok to discharge patient. (2) Acute heart failure with preserved ejection fraction: Suspect rate related pulmonary edema contributing towards his shortness of breath Should improve with rate control with cardioversion Continue on his usual dose of furosemide given current hypotension will not increase (3) CAD (coronary artery disease): Unknown history of this Continue aspirin, atorvastatin resume low dose lisinorpil, stopped diltiazem. (4) Diabetes mellitus: HbA1c with a.m. labs Hold metformin and glimepiride Since he took this this morning we will just use NovoLog for correction factor only but may need basal insulin as glimepiride is metabolized/excreted (5) Benign prostatic hyperplasia with urinary obstruction: History of urinary obstruction, no current concern for this Continue tamsulosin (6) Sleep apnea: Noncompliant with CPAP outpatient Total Time Total Time Spent Total Time Spent (In Minutes): 32 Discharge Plan Discharge Items Patient Disposition: Home - Self-Care Reason For Visit: a. flutter RVR Discharge Diagnosis: A. flutter RVR Activity: Resume your previous activity Non-emergency contact: Primary Care Provider Call non-emergency contact if: you have any medication questions Follow-up/Referrals: Brooks Solomon DO [Outside Practitioners] - 01/11/24 3:30 pm Katie eLblanc CRNP [Outside Practitioners] - 01/07/24 7:45 am Diet: Carb Consistent or DM2 Addtl Attending Provider Instructions: Recommend followup with Cardiology. As you saw Dr. Reveles, Dr. Castro and Dr. Oshea, you are able to see either. Or you can continue to followup with your regular senior field service engineer near your area. Will recommend followup within 1 month. You will also followup with your PCP in 1-2 weeks Pending Studies at Discharge: No Stand-Alone Forms: My [facility] [place], Smoking Cessation Medications and DC Order Prescriptions: New amiodarone 200 mg Tablet See Rx Instructions .ROUTE .COMPLEX Qty: 67 0RF Rx Instructions: 200 TID with meals for 1 week then 200 mg BID ongoing aspirin 81 mg Tablet,Delayed Release (Dr/Ec) 81 mg PO DAILY Qty: 30 0RF Continued lisinopril 5 mg tablet 2.5 mg PO DAILY triamcinolone acetonide 0.1 % cream 1 appln topical DAILY isosorbide mononitrate 30 mg tablet extended release 24 hr 30 mg PO DAILY ketoconazole 2 % shampoo 1 appln topical ONCE Lactobacillus acidophilus 100 mg (1 billion cell) capsule 100 mg PO BID tamsulosin 0.4 mg capsule 0.4 mg PO DAILY Qty: 90 3RF furosemide 40 mg tablet 40 mg PO BID atorvastatin 10 mg tablet 10 mg PO HS sertraline 100 mg tablet 100 mg PO HS glimepiride 2 mg tablet 2 mg PO DAILY potassium chloride 20 mEq/15 mL liquid 20 meq PO BID metformin 500 mg tablet extended release 24 hr 500 mg PO BID Xarelto 20 mg tablet 20 mg PO HS Discontinued aspirin 81 mg tablet 162 mg PO DAILY diltiazem HCl 240 mg tablet extended release 24 hr 240 mg PO DAILY Discharge Orders: Discharge Order (Routine); Ordered 12/28/23 Ordered By: Vickey Cazares/Other Patient Handouts: Managing Type 2 Diabetes Admission Data Admit Date/Time: 12/25/23 15:35 Attending Provider: Vickey Garza Admit Provider: Guerrero Collado Primary Care Provider: Darrin Mejia Other Providers: Wali Castro; Misha Oshea; Benjamín Mccray Other Interventions: Discharge Summary Assessment (RN) Last Done: 12/28/23 12:50 Coding Level of Care Code 95778 INP/OBS DISCH >30 MIN Diagnoses Atrial flutter with rapid ventricular response I48.92 Acute heart failure with preserved ejection fraction I50.31 CAD (coronary artery disease) I25.10 Diabetes mellitus E11.9 Benign prostatic hyperplasia with urinary obstruction N40.1; N13.8 Sleep apnea G47.30
[2023-12-28] MEDS: POTASSIUM CHLORIDE CRTAB 20 MEQ TABCR PO STA (11:41)
== END 2023-12-28 14:58 | disposition home or self-care (01) | DRG 308 ==
LOC: ED 11:59 → SUATTDRO 15:35 → 2E 15:35
DX: E11.9 Type 2 diabetes mellitus without complications; Z79.01 Long term (current) use of anticoagulants; N40.0 Benign prostatic hyperplasia without lower urinary tract symptoms; Z79.899 Other long term (current) drug therapy; G47.30 Sleep apnea, unspecified; Z91.199 Patient's noncompliance with other medical treatment and regimen due to unspecified reason; I45.10 Unspecified right bundle-branch block; Z79.82 Long term (current) use of aspirin; I48.92 Unspecified atrial flutter; I11.0 Hypertensive heart disease with heart failure; Z79.84 Long term (current) use of oral hypoglycemic drugs; I50.31 Acute diastolic (congestive) heart failure; I25.10 Atherosclerotic heart disease of native coronary artery without angina pectoris; Z87.448 Personal history of other diseases of urinary system

== ENCOUNTER 2024-05-20 11:00 | Inpatient (IN) ==
[2024-05-20] MEDS: METOPROLOL TARTRATE 1 MG/ML VIAL IV ONE (11:23)
--- NOTE | 2024-05-20 11:23 | Emergency Department Note ---
Impression & Plan Atrial flutter with rapid ventricular response, Pneumonia, COPD (chronic obstructive pulmonary disease), On rivaroxaban therapy ED Provider Note NAME: SIERRA VARGHESE AGE: 68 SEX: M : 1955 ARRIVES VIA: Walk-In INFORMANT: Patient ED PROVIDER(S): Alex Armenta MD CHIEF COMPLAINT: Admit PLAN: Disposition: Fast heart rate MEDICAL DECISION MAKING: The patient is a pleasant 68-year-old gentleman with a past medical history of mild intellectual delay, CAD, HFpEF, atrial flutter with RVR on Xarelto and amiodarone, asthma/COPD who presents to emergency department via walk-in accompanied by his caregiver for evaluation of ongoing RVR over the past week where his caregiver reports that he was seen by his primary care doctor this week and noted his heart rate was in the 130s but is unaware of any recommended therapies. Due to increased heart rate in the 150s-160s they present for evaluation today. The patient reports having mild cough and congestion over the past week. Denies any fevers. Patient admits that he cannot tell when he is in atrial fibrillation or when it is even fast as he does not sense any particular symptom during our discussion where his heart rate was in the 150s. Patient reports he has been taking his medications including his amiodarone as prescribed. On evaluation the patient is no distress, afebrile heart in the 150s and vital signs otherwise stable. He appears clinically dry. Lungs with scant intermittent wheeze and are otherwise clear. He has normal respiratory effort. EKG demonstrates atrial flutter with RVR without overt acute ischemia. Chest x- ray with airspace opacities suspicious for pneumonia given the patient's bronchospasm on exam. WBC, H/H and platelets within normal limits. There is neutrophil predominance but no left shift. Chemistry without metabolic acidosis. High-sensitivity troponin 12.6, within normal limits. Lipase is not elevated. Procalcitonin is not elevated. TSH within limits. UA without evidence of infection. Respiratory BioFire was negative. Patient was treated with gentle IV fluid hydration as well as 5 mg of IV Lopressor x 3 for improved rate control to the low 100s. Given suspicion for pneumonia patient was treated for CAP with ceftriaxone and azithromycin. Given the patient's RVR patient agrees with plan for admission for further management. [facility] [place] to evaluate the patient for admission. Triage Nursing notes reviewed and agree them. Prior/external medical records reviewed Vital Signs: reviewed Differential diagnosis: Premature contractions, electrolyte abnormality, cardiac dysrhythmia, thyroid dysfunction, pulmonary embolism, infection, gastrointestinal, as well as other pathologies. ER treatment provided: See below. Diagnostics interpreted by me: ECG: Atrial flutter with 2: 1 AV conduction, right bundle-branch block, no overt ST ovation or depression, QTc 493, QRS 120. Cardiac Monitoring: An order for continuous cardiac monitoring was placed and demonstrated Atrial flutter with 2: 1 AV conduction, right bundle-branch block Laboratory studies: See below Imaging studies: See below Consultation(s): [facility] [place] HPI: The patient is a pleasant 68-year-old gentleman with a past medical history of mild intellectual delay, CAD, HFpEF, atrial flutter with RVR on Xarelto and amiodarone, asthma/COPD who presents to emergency department via walk-in accompanied by his caregiver for evaluation of ongoing RVR over the past week where his caregiver reports that he was seen by his primary care doctor this week and noted his heart rate was in the 130s but is unaware of any recommended therapies. Due to increased heart rate in the 150s-160s they present for evaluation today. The patient reports having mild cough and congestion over the past week. Denies any fevers. Patient admits that he cannot tell when he is in atrial fibrillation or when it is even fast as he does not sense any particular symptom during our discussion where his heart rate was in the 150s. Patient reports he has been taking his medications including his amiodarone as prescribed. ROS: See above HPI for pertinent positives & negatives. A total of 10 systems reviewed and were otherwise negative. VITALS:See Below PHYSICAL EXAMINATION: GENERAL: Awake, alert, in no distress HENT: Normocephalic, atraumatic. Oropharynx with dry mucous membranes and otherwise unremarkable. EYES: Normal conjunctiva. Sclera non-icteric. NECK: Supple. No nuchal rigidity. FROM. No JVD. RESPIRATORY: Scant intermittent wheeze and are otherwise clear. He has normal respiratory effort. CARDIAC: Tachycardic rate, irregular rhythm. Extremities warm and well perfused. Pulses equal. ABDOMEN: Soft, non-distended. No tenderness to palpation. No rebound or guarding. No masses. MUSCULOSKELETAL: Chest examination reveals no tenderness. The back is symmetrical on inspection without obvious abnormality. There is no CVA tenderness to palpation. No joint edema. LOWER EXTREMITIES: Calves are equal size bilaterally and non-tender. No edema. No discoloration. NEURO: Normal sensorium. No sensory or motor deficits noted. SKIN: No rash or jaundice noted. ED COURSE: Critical Care: I have personally spent greater than 35 minutes of critical care time in the direct management of this patient. This includes bedside care, interpretation of diagnostic studies, and testing, discussion with consultants, patient, and family members, and other required patient management activities. This 35 minutes is in excess of all separately billable procedures. Alex Armenta MD Past Med/Surg History Problem List (Updated 05/20/24 @ 17:30 by Alex Armenta MD) On rivaroxaban therapy (Acute) COPD (chronic obstructive pulmonary disease) (Acute) Pneumonia (Acute) Acute heart failure with preserved ejection fraction Atrial flutter with rapid ventricular response (Acute) Atrial fibrillation with rapid ventricular response (Acute) Sleep apnea Diabetes mellitus CAD (coronary artery disease) Hematuria, microscopic Hyperlipidemia Hypertension Incontinence Nocturia Medical History Benign prostatic hyperplasia with urinary obstruction Social History Smoking Status: Former smoker Second Hand Exposure: No; Do You Dip or Chew Tobacco: No; Hx Alcohol Use: No Hx Substance Use: No Preferred Language: Welsh Communication Ability: Effective Ingredient Specialist Required: No Beliefs That Will Affect Care: None Current Living Situation: Personal Care Facility Feels Safe at Home: Yes Assistive Devices: None Allergies Allergies Allergy/AdvReac Type Severity Reaction Status Date / Time No Known Allergies Allergy Verified 05/16/19 14:43 Home Meds Home Medications Medication Instructions Recorded Confirmed Lactobacillus acidophilus 100 mg 100 mg PO BID 03/29/19 05/20/24 (1 billion cell) capsule isosorbide mononitrate 30 mg 30 mg PO QAM 03/29/19 05/20/24 tablet,extended release 24 hr ketoconazole 2 % shampoo 1 appln topical UD 03/29/19 05/20/24 lisinopril 5 mg tablet 2.5 mg PO QAM 03/29/19 05/20/24 triamcinolone acetonide 0.1 % 1 appln topical UD 03/29/19 05/20/24 topical cream atorvastatin 10 mg tablet 10 mg PO QAM 12/25/23 05/20/24 furosemide 40 mg tablet 40 mg PO BID 12/25/23 05/20/24 glimepiride 2 mg tablet 2 mg PO QAM 12/25/23 05/20/24 metformin 500 mg tablet,extended 500 mg PO BID 12/25/23 05/20/24 release 24 hr potassium chloride 20 mEq/15 mL 20 meq PO BID 12/25/23 05/20/24 oral liquid rivaroxaban 20 mg tablet (Xarelto) 20 mg PO PM 12/25/23 05/20/24 sertraline 100 mg tablet 100 mg PO HS 12/25/23 05/20/24 Antifungal Powder 1 applic topical DIRECTED PRN 05/20/24 05/20/24 Other Benadryl 1 applic topical DIRECTED PRN 05/20/24 05/20/24 Other Shefali-Lanta 1 dose PO DIRECTED PRN 05/20/24 05/20/24 Indigestion Milk of Magnesia 2 tbsp PO DIRECTED PRN 05/20/24 05/20/24 Constipation Barnard 3 1,000 mg PO QAM 05/20/24 05/20/24 Oyster Don 1 tab PO BID 05/20/24 05/20/24 Vicks Vaporub 1 applic topical DIRECTED PRN 05/20/24 05/20/24 Other acetaminophen 1 tab PO DIRECTED PRN Pain 05/20/24 05/20/24 albuterol sulfate 90 mcg/actuation 2 puff inhalation DIRECTED PRN 05/20/24 05/20/24 aerosol inhaler (Ventolin HFA) excercise/sob amiodarone 200 mg tablet 200 mg PO QAM 05/20/24 05/20/24 budesonide-formoterol HFA 80 2 puff inhalation DIRECTED PRN 05/20/24 05/20/24 mcg-4.5 mcg/actuation aerosol sob inhaler chlorpheniramine-acetaminophen 2 2 tab PO DIRECTED PRN cold/flu 05/20/24 05/20/24 mg-325 mg tablet guaifenesin 100 mg/5 mL oral 200 mg PO Q4H PRN Cough 05/20/24 05/20/24 liquid (MAXTussin) ibuprofen 200 mg tablet 800 mg PO Q8H PRN Pain 05/20/24 05/20/24 loperamide 2 mg tablet 4 mg PO DIRECTED PRN Diarrhea 05/20/24 05/20/24 (Anti-Diarrheal (loperamide)) neomycin-bacitracn Zn-polymyx 3.5 1 applic topical DAILY PRN Other 05/20/24 05/20/24 mg-400 unit-5,000 unit/gram top oint (Triple Antibiotic) nitroglycerin 0.4 mg sublingual 0.4 mg sublingual DIRECTED PRN 05/20/24 05/20/24 tablet Chest Pain tamsulosin 0.4 mg capsule 0.4 mg PO PM 05/20/24 05/20/24 vitamin A and D 1 applic topical DIRECTED PRN 05/20/24 05/20/24 Other Previous Rx's Medication Instructions Recorded aspirin 81 mg tablet,delayed 81 mg PO DAILY #30 tabs 12/28/23 release Results & Data (ED) Vital Signs Vital Signs - 24 hr 05/20/24 11:01 05/20/24 11:12 05/20/24 11:13 Temperature 36.5 C Temperature Source Temporal Artery Scan Pulse Rate 155 H 154 H Pulse Rate [Apical] Pulse Rate from SpO2 Sensor Pulse Rhythm Regular Respiratory Rate 18 22 Respiratory Effort / Characteristics Non-Labored Spontaneous Respiratory Depth Normal Blood Pressure 115/79 Blood Pressure [Left Arm] Blood Pressure Mean 91 Blood Pressure Mean [Left Arm] Pulse Oximetry 96 95 92 Oxygen Delivery Method Room Air Room Air Room Air Sepsis Recent Fever Within 48 Hours No Sepsis New/Unexplained Change in Mental Status No Sepsis Action Taken by Nursing No Action Required 05/20/24 11:17 05/20/24 11:23 05/20/24 11:25 Temperature Temperature Source Pulse Rate 153 H Pulse Rate [Apical] Pulse Rate from SpO2 Sensor Pulse Rhythm Respiratory Rate Respiratory Effort / Characteristics Respiratory Depth Blood Pressure 106/79 94/73 L 102/69 Blood Pressure [Left Arm] Blood Pressure Mean 96 78 Blood Pressure Mean [Left Arm] Pulse Oximetry Oxygen Delivery Method Sepsis Recent Fever Within 48 Hours Sepsis New/Unexplained Change in Mental Status Sepsis Action Taken by Nursing 05/20/24 11:30 05/20/24 11:35 05/20/24 11:39 Temperature Temperature Source Pulse Rate 110 H Pulse Rate [Apical] Pulse Rate from SpO2 Sensor 120 H Pulse Rhythm Respiratory Rate 21 Respiratory Effort / Characteristics Respiratory Depth Blood Pressure 82/56 L 87/65 L Blood Pressure [Left Arm] Blood Pressure Mean 72 76 Blood Pressure Mean [Left Arm] Pulse Oximetry 92 Oxygen Delivery Method Sepsis Recent Fever Within 48 Hours Sepsis New/Unexplained Change in Mental Status Sepsis Action Taken by Nursing 05/20/24 11:40 05/20/24 11:46 05/20/24 11:55 Temperature Temperature Source Pulse Rate Pulse Rate [Apical] Pulse Rate from SpO2 Sensor Pulse Rhythm Respiratory Rate Respiratory Effort / Characteristics Respiratory Depth Blood Pressure 95/59 L 88/56 L 79/62 L Blood Pressure [Left Arm] Blood Pressure Mean 80 74 73 Blood Pressure Mean [Left Arm] Pulse Oximetry Oxygen Delivery Method Sepsis Recent Fever Within 48 Hours Sepsis New/Unexplained Change in Mental Status Sepsis Action Taken by Nursing 05/20/24 11:57 05/20/24 12:06 05/20/24 12:28 Temperature Temperature Source Pulse Rate 116 H 119 H 138 H Pulse Rate [Apical] Pulse Rate from SpO2 Sensor 135 H 129 H Pulse Rhythm Respiratory Rate 24 22 Respiratory Effort / Characteristics Respiratory Depth Blood Pressure Blood Pressure [Left Arm] Blood Pressure Mean Blood Pressure Mean [Left Arm] Pulse Oximetry 93 92 Oxygen Delivery Method Sepsis Recent Fever Within 48 Hours Sepsis New/Unexplained Change in Mental Status Sepsis Action Taken by Nursing 05/20/24 12:30 05/20/24 12:30 05/20/24 12:32 Temperature Temperature Source Pulse Rate 136 H 128 H Pulse Rate [Apical] Pulse Rate from SpO2 Sensor 133 H Pulse Rhythm Respiratory Rate 21 Respiratory Effort / Characteristics Respiratory Depth Blood Pressure 98/81 L 98/81 L Blood Pressure [Left Arm] Blood Pressure Mean 89 Blood Pressure Mean [Left Arm] Pulse Oximetry 92 Oxygen Delivery Method Sepsis Recent Fever Within 48 Hours Sepsis New/Unexplained Change in Mental Status Sepsis Action Taken by Nursing 05/20/24 12:42 05/20/24 12:45 05/20/24 12:51 Temperature Temperature Source Pulse Rate 148 H 138 H Pulse Rate [Apical] Pulse Rate from SpO2 Sensor 148 H 142 H Pulse Rhythm Respiratory Rate 27 H 22 Respiratory Effort / Characteristics Respiratory Depth Blood Pressure 101/79 Blood Pressure [Left Arm] Blood Pressure Mean 89 Blood Pressure Mean [Left Arm] Pulse Oximetry 93 94 Oxygen Delivery Method Sepsis Recent Fever Within 48 Hours Sepsis New/Unexplained Change in Mental Status Sepsis Action Taken by Nursing 05/20/24 13:00 05/20/24 13:00 05/20/24 13:08 Temperature Temperature Source Pulse Rate 137 H 149 H Pulse Rate [Apical] Pulse Rate from SpO2 Sensor 132 H Pulse Rhythm Respiratory Rate 19 Respiratory Effort / Characteristics Respiratory Depth Blood Pressure 108/88 97/74 L Blood Pressure [Left Arm] Blood Pressure Mean 102 Blood Pressure Mean [Left Arm] Pulse Oximetry 93 Oxygen Delivery Method Sepsis Recent Fever Within 48 Hours Sepsis New/Unexplained Change in Mental Status Sepsis Action Taken by Nursing 05/20/24 13:09 05/20/24 13:09 05/20/24 13:15 Temperature Temperature Source Pulse Rate 149 H 127 H Pulse Rate [Apical] Pulse Rate from SpO2 Sensor 149 H 122 H Pulse Rhythm Respiratory Rate 19 21 Respiratory Effort / Characteristics Respiratory Depth Blood Pressure 97/74 L Blood Pressure [Left Arm] Blood Pressure Mean 87 Blood Pressure Mean [Left Arm] Pulse Oximetry 95 94 Oxygen Delivery Method Sepsis Recent Fever Within 48 Hours Sepsis New/Unexplained Change in Mental Status Sepsis Action Taken by Nursing 05/20/24 13:24 05/20/24 13:24 05/20/24 13:30 Temperature Temperature Source Pulse Rate 142 H 121 H Pulse Rate [Apical] Pulse Rate from SpO2 Sensor 121 H Pulse Rhythm Respiratory Rate 22 19 Respiratory Effort / Characteristics Respiratory Depth Blood Pressure 115/87 Blood Pressure [Left Arm] Blood Pressure Mean 93 Blood Pressure Mean [Left Arm] Pulse Oximetry 92 Oxygen Delivery Method Sepsis Recent Fever Within 48 Hours Sepsis New/Unexplained Change in Mental Status Sepsis Action Taken by Nursing 05/20/24 13:39 05/20/24 13:45 05/20/24 14:00 Temperature Temperature Source Pulse Rate 129 H 131 H Pulse Rate [Apical] Pulse Rate from SpO2 Sensor 124 H 132 H Pulse Rhythm Respiratory Rate 18 19 Respiratory Effort / Characteristics Respiratory Depth Blood Pressure 90/76 L Blood Pressure [Left Arm] Blood Pressure Mean 80 Blood Pressure Mean [Left Arm] Pulse Oximetry 93 90 Oxygen Delivery Method Sepsis Recent Fever Within 48 Hours Sepsis New/Unexplained Change in Mental Status Sepsis Action Taken by Nursing 05/20/24 14:00 05/20/24 14:12 05/20/24 14:15 Temperature Temperature Source Pulse Rate 143 H Pulse Rate [Apical] Pulse Rate from SpO2 Sensor 133 H Pulse Rhythm Respiratory Rate 23 Respiratory Effort / Characteristics Respiratory Depth Blood Pressure 83/66 L 102/77 Blood Pressure [Left Arm] Blood Pressure Mean 77 84 Blood Pressure Mean [Left Arm] Pulse Oximetry 92 Oxygen Delivery Method Sepsis Recent Fever Within 48 Hours Sepsis New/Unexplained Change in Mental Status Sepsis Action Taken by Nursing 05/20/24 14:24 05/20/24 15:12 05/20/24 15:17 Temperature Temperature Source Pulse Rate 132 H 124 H Pulse Rate [Apical] 122 H Pulse Rate from SpO2 Sensor 76 Pulse Rhythm Respiratory Rate 21 20 Respiratory Effort / Characteristics Respiratory Depth Blood Pressure 100/71 Blood Pressure [Left Arm] 99/78 L Blood Pressure Mean Blood Pressure Mean [Left Arm] 85 Pulse Oximetry 95 96 Oxygen Delivery Method Room Air Sepsis Recent Fever Within 48 Hours Sepsis New/Unexplained Change in Mental Status Sepsis Action Taken by Nursing 05/20/24 15:45 05/20/24 15:45 05/20/24 16:54 Temperature Temperature Source Pulse Rate 112 H 112 H 100 H Pulse Rate [Apical] Pulse Rate from SpO2 Sensor Pulse Rhythm Respiratory Rate Respiratory Effort / Characteristics Respiratory Depth Blood Pressure Blood Pressure [Left Arm] Blood Pressure Mean Blood Pressure Mean [Left Arm] Pulse Oximetry Oxygen Delivery Method Sepsis Recent Fever Within 48 Hours Sepsis New/Unexplained Change in Mental Status Sepsis Action Taken by Nursing Laboratory Data Attestation: I reviewed the patient's lab results. 05/20/24 11:14 05/20/24 11:14 Lab Results 05/20/24 05/20/24 05/20/24 Range/Units 11:14 11:20 13:00 WBC 9.51 (4.8-10.8) K/ul RBC 5.03 (4.70-6.10) M/uL Hgb 16.5 (14.0-18.0) g/dl Hct 47.4 (42.0-52.0) % MCV 94.2 (80.0-100.0) fL MCH 32.8 (25.0-34.0) pg MCHC 34.8 (32.0-36.0) g/dL RDW Std Deviation 46.5 H (36.4-46.3) fL RDW Coeff of Edgar 13.2 (11.5-14.5) % Plt Count 157 (130-400) K/uL MPV 12.1 (9.4-12.4) fL Immature Gran % (Auto) 0.4 % Neut % (Auto) 77.9 % Lymph % (Auto) 9.3 % [place] % (Auto) 11.9 % Eos % (Auto) 0.2 % Baso % (Auto) 0.3 % Neut # (Auto) 7.41 H (1.40-6.50) K/uL Lymph # (Auto) 0.88 L (1.20-3.40) K/uL [place] # (Auto) 1.13 H (0.11-0.59) K/uL Eos # (Auto) 0.02 (0.00-0.50) K/uL Baso # (Auto) 0.03 (0.00-0.20) K/uL Immature Gran # (Auto) 0.04 (0.01-0.20) K/uL PT 12.0 (9.0-12.0) Seconds INR 1.1 (0.9-1.1) Sodium 136 (136-145) mmol/L Potassium 3.9 (3.5-5.1) mmol/L Chloride 100 (98-107) mmol/L Carbon Dioxide 27 (21-32) mmol/L Anion Gap 9 (3-11) BUN 19 (6-23) mg/dl Creatinine 1.40 (0.6-1.4) mg/dl Est Cr Clr Drug Dosing 63.0 ml/min eGFR 54.41 BUN/Creatinine Ratio 13.6 (10-20) Glucose 102 H (70-99(Fasting)) mg/dl Calcium 9.3 (8.6-10.3) mg/dl Phosphorus 2.1 L (2.5-4.9) mg/dl Magnesium 1.7 (1.7-2.4) mg/dl Total Bilirubin 1.2 H (0.2-1.0) mg/dl AST 18 (13-39) U/L ALT 15 (7-52) U/L Alkaline Phosphatase 54 (34-104) U/L Troponin I High Sens 12.6 (0-20) pg/ml B-Natriuretic Peptide 61 (0-100) pg/ml Total Protein 7.7 (6.0-8.3) gm/dl Albumin 4.3 (3.4-5.0) gm/dl Globulin 3.4 (2.5-4.0) gm/dl Albumin/Globulin Ratio 1.3 (0.9-2) Lipase 16 (11-82) U/L Procalcitonin 0.08 (0-0.5) ng/ml TSH 0.442 (0.300-4.500) uIu/ml Urine Color Yellow Urine Appearance Clear (Clear) Urine pH 5.0 (4.5-7.5) Ur Specific [place] 1.013 (1.000-1.030) Urine Protein Negative (Negative) Urine Glucose (UA) Negative (Negative) Urine Ketones Negative (Negative) Urine Blood Negative (Negative) Urine Nitrite Negative (Negative) Urine Bilirubin Negative (Negative) Urine Urobilinogen Negative (Negative) Ur Leukocyte Esterase Trace H (Negative) Urine WBC (Auto) 0-5 (0-5) /hpf Urine RBC (Auto) 0-2 (0-2) /hpf U Hyaline Cast (Auto) 0-2 (0-2) /lpf U Epithel Cells (Auto) 0-2 (0-2) /hpf Urine Bacteria (Auto) None Seen (None Seen) Adenovirus (PCR) Not Detected (NotDetected) B. pertussis DNA (PCR) Not Detected (NotDetected) B.parapertussis DNA PCR Not Detected (NotDetected) C. pneumoniae DNA (PCR) Not Detected (NotDetected) Coronavirus OC43 (PCR) Not Detected (NotDetected) Coronavirus HKU1 (PCR) Not Detected (NotDetected) Coronavirus 229E (PCR) Not Detected (NotDetected) SARS-CoV-2 (PCR) Not Detected (NotDetected) Coronavirus NL63 (PCR) Not Detected (NotDetected) Human Metapneumovir PCR Not Detected (NotDetected) Influenza Type A (PCR) Not Detected (NotDetected) Influenza Type B (PCR) Not Detected (NotDetected) M. pneumoniae (PCR) Not Detected (NotDetected) Parainfluenza 1 (PCR) Not Detected (NotDetected) Parainfluenza 2 (PCR) Not Detected (NotDetected) Parainfluenza 3 (PCR) Not Detected (NotDetected) Parainfluenza 4 (PCR) Not Detected (NotDetected) RSV (PCR) Not Detected (NotDetected) Entero/Rhino (PCR) Not Detected (NotDetected) Administered Medications Discontinued Medications Azithromycin (Azithromycin 250 Mg Tab) 500 mg PO NOW ONE Stop: 05/20/24 14:50 Last Admin: 05/20/24 15:12 Dose: 500 mg Documented By: ADY Sodium Chloride (Nss) 500 mls @ 999 mls/hr IV .Q31M ONE Stop: 05/20/24 11:52 Last Infusion: 05/20/24 12:32 Dose: Infused Documented By: Admin: 05/20/24 11:25 Dose: 999 mls/hr Documented By: NILESH Acetaminophen (Ofirmev) 1,000 mg in 100 mls @ 400 mls/hr IV NOW STA Stop: 05/20/24 12:56 Last Infusion: 05/20/24 15:42 Dose: Infused Documented By: Admin: 05/20/24 13:08 Dose: 400 mls/hr Documented By: NILESH Sodium Chloride (Nss) 500 mls @ 999 mls/hr IV .Q31M ONE Stop: 05/20/24 15:13 Last Infusion: 05/20/24 16:35 Dose: Infused Documented By: Admin: 05/20/24 15:13 Dose: 999 mls/hr Documented By: ADY Ceftriaxone Sodium (Rocephin) 2,000 mg in 50 mls @ 100 mls/hr IV NOW STA Stop: 05/20/24 15:18 Last Infusion: 05/20/24 15:42 Dose: Infused Documented By: Admin: 05/20/24 15:12 Dose: 100 mls/hr Documented By: ADY Metoprolol Tartrate (Metoprolol Tartrate 1 Mg/Ml Vial) Confirm Administered Dose 5 mg IV .STK-MED ONE Stop: 05/20/24 11:23 Last Admin: 05/20/24 11:23 Dose: 5 mg Documented By: NILESH Metoprolol Tartrate (Metoprolol Tartrate 1 Mg/Ml Vial) 5 mg IV NOW STA Stop: 05/20/24 11:23 Last Admin: 05/20/24 11:25 Dose: Not Given Documented By: NILESH Metoprolol Tartrate (Metoprolol Tartrate 1 Mg/Ml Vial) 5 mg IV NOW STA Stop: 05/20/24 12:43 Last Admin: 05/20/24 13:08 Dose: 5 mg Documented By: NILESH Metoprolol Tartrate (Metoprolol Tartrate 1 Mg/Ml Vial) 5 mg IV NOW STA Stop: 05/20/24 14:44 Last Admin: 05/20/24 15:12 Dose: 5 mg Documented By: ADY Imaging Data Radiologist's Impression: Chest X-Ray 05/20/24 11:13 SINGLE VIEW CHEST CLINICAL HISTORY: Atypical chest pain FINDINGS: 2 AP, portable, upright chest radiographs are compared to study dated 12/25/2023. The heart is enlarged noting atherosclerotic calcification of the thoracic aorta. There is pulmonary vascular congestion. Airspace opacities are seen bilaterally. No large pleural effusion or pneumothorax is identified. The skeletal structures are osteopenic. The bony thorax is grossly intact. Arthritic change is noted in the shoulders. IMPRESSION: 1. Cardiomegaly with evidence of congestive failure. 2. Bilateral airspace opacities could represent mild pulmonary edema and/or an infectious/inflammatory pneumonitis. Clinical correlation will be required and radiographic follow-up to resolution is recommended. ACT 112: Negative or not required by law. Electronically signed by: Davin Durbin M.D. 05/20/2024 12:02 PM Discharge Plan Visit Data Chief Complaint: Cardiac Assessment Stated Complaint: AFIB, TACHYCARDIA, SOB, CARDIAC PROBLEMS HX ED Provider: Alex Armenta Discharge Problem: Atrial flutter with rapid ventricular response, Pneumonia, COPD (chronic obstructive pulmonary disease), On rivaroxaban therapy Forms Stand Alone Forms: [facility] [employer] Prescriptions Prescriptions: No Action lisinopril 5 mg tablet 2.5 mg PO QAM Rx Instructions: 8am triamcinolone acetonide 0.1 % cream 1 appln topical UD Rx Instructions: not on list 1 ashley daily isosorbide mononitrate 30 mg tablet extended release 24 hr 30 mg PO QAM Rx Instructions: 8am ketoconazole 2 % shampoo 1 appln topical UD Rx Instructions: not on list 1 ashley daily Lactobacillus acidophilus 100 mg (1 billion cell) capsule 100 mg PO BID Rx Instructions: 100 mg po bid not on list Antifungal Powder 1 applic topical DIRECTED PRN (Reason: Other) Triple Antibiotic 3.5mg-400 unit- 5,000 unit/gram Ointment 1 applic TOPICAL DAILY PRN (Reason: Other) vitamin A and D [A and D] Ointment 1 applic TOPICAL DIRECTED PRN (Reason: Other) loperamide [Anti-Diarrheal (loperamide)] 2 mg Tablet 4 mg PO DIRECTED PRN (Reason: Diarrhea) Rx Instructions: administer after each loose stool until symptoms controlled; do not exceed 8 mg per 24 hrs guaifenesin [MAXTussin] 100 mg/5 mL Liquid 200 mg PO Q4H PRN (Reason: Cough) ibuprofen 200 mg Tablet 800 mg PO Q8H PRN (Reason: Pain) nitroglycerin 0.4 mg Tablet, Sublingual 0.4 mg sublingual DIRECTED PRN (Reason: Chest Pain) albuterol sulfate [Ventolin HFA] 90 mcg/actuation Hfa Aerosol Inhaler 2 puff INHALATION DIRECTED PRN (Reason: excercise/sob) Coricidin 2-325 mg Tablet 2 tab PO DIRECTED PRN (Reason: cold/flu) budesonide-formoterol 80-4.5 mcg/actuation Hfa Aerosol Inhaler 2 puff INHALATION DIRECTED PRN (Reason: sob) Benadryl 1 applic topical DIRECTED PRN (Reason: Other) Shefali-Lanta 1 dose PO DIRECTED PRN (Reason: Indigestion) Milk of Magnesia 2 tbsp PO DIRECTED PRN (Reason: Constipation) Rx Instructions: no bm after 3 days [place] 3 1,000 mg PO QAM Oyster Don 1 tab PO BID Rx Instructions: unknown dose. Vicks Vaporub 1 applic topical DIRECTED PRN (Reason: Other) acetaminophen 1 tab PO DIRECTED PRN (Reason: Pain) Rx Instructions: unknown dose amiodarone 200 mg tablet 200 mg PO QAM Rx Instructions: 200 mg daily 8 am tamsulosin 0.4 mg capsule 0.4 mg PO PM Rx Instructions: 8pm furosemide 40 mg tablet 40 mg PO BID Rx Instructions: 8am, 5pm atorvastatin 10 mg tablet 10 mg PO QAM Rx Instructions: 8am sertraline 100 mg tablet 100 mg PO HS Rx Instructions: 8pm glimepiride 2 mg tablet 2 mg PO QAM Rx Instructions: 8am potassium chloride 20 mEq/15 mL liquid 20 meq PO BID Rx Instructions: 8am, 8pm metformin 500 mg tablet extended release 24 hr 500 mg PO BID Rx Instructions: 8am, 5pm Xarelto 20 mg tablet 20 mg PO PM Rx Instructions: 5pm aspirin 81 mg Tablet,Delayed Release (Dr/Ec) 81 mg PO DAILY Qty: 30 0RF Rx Instructions: 8am Referrals Referrals: Darrin Mejia [Primary Care Provider] - Discharge Problem: Pneumonia Qualifiers: Pneumonia type: due to unspecified organism Laterality: bilateral Lung location: unspecified part of lung Qualified Code(s): J18.9 - Pneumonia, unspecified organism COPD (chronic obstructive pulmonary disease) Qualifiers: COPD type: unspecified COPD Qualified Code(s): J44.9 - Chronic obstructive pulmonary disease, unspecified
[2024-05-20] MEDS: SODIUM CHLORIDE 0.9% 500 ML IV ONE ×2 (11:25→15:13)
[2024-05-20] MEDS: METOPROLOL TARTRATE 1 MG/ML VIAL IV STA ×3 (11:25→15:12)
[2024-05-20 11:37] LABS: Basophils # (auto) 0.03 K/uL (0.00-0.20); Basophils % (auto) 0.3 %; Eosinophils # (auto) 0.02 K/uL (0.00-0.50); Eosinophils % (auto) 0.2 %; Hematocrit (blood only) 47.4 % (42.0-52.0); Hemoglobin 16.5 g/dl (14.0-18.0); Immature Granulocytes # (auto) 0.04 K/uL (0.01-0.20); Immature Granulocytes % (auto) 0.4 %; Lymphocytes # (auto) 0.88 K/uL (1.20-3.40); Lymphocytes % (auto) 9.3 %; Mean Corpuscular Hemoglobin 32.8 pg (25.0-34.0); Mean Corpuscular Hgb Conc 34.8 g/dL (32.0-36.0); Mean Corpuscular Volume 94.2 fL (80.0-100.0); Mean Platelet Volume 12.1 fL (9.4-12.4); Monocytes # (auto) 1.13 K/uL (0.11-0.59); Monocytes % (auto) 11.9 %; Neutrophils # (auto) 7.41 K/uL (1.40-6.50); Neutrophils % (auto) 77.9 %; Platelet Count 157 K/uL (130-400); RDW Coefficient of Variation 13.2 % (11.5-14.5); RDW Standard Deviation 46.5 fL (36.4-46.3); Red Blood Count 5.03 M/uL (4.70-6.10); White Blood Count 9.51 K/ul (4.8-10.8)
[2024-05-20 11:57] LABS: Albumin Globulin Ratio 1.3 (0.9-2); Albumin Level 4.3 gm/dl (3.4-5.0); BUN Creatinine Ratio 13.6 (10-20); Bilirubin,Total 1.2 mg/dl (0.2-1.0); Calcium 9.3 mg/dl (8.6-10.3); Globulin 3.4 gm/dl (2.5-4.0); Magnesium 1.7 mg/dl (1.7-2.4); Phosphorus 2.1 mg/dl (2.5-4.9); Potassium 3.9 mmol/L (3.5-5.1); Total Protein 7.7 gm/dl (6.0-8.3)
[2024-05-20 12:04] LABS: Troponin I High Sensitivity 12.6 pg/ml (0-20)
--- NOTE | 2024-05-20 12:04 | XRay Report ---
SINGLE VIEW CHEST CLINICAL HISTORY: Atypical chest pain FINDINGS: 2 AP, portable, upright chest radiographs are compared to study dated 12/25/2023. The heart is enlarged noting atherosclerotic calcification of the thoracic aorta. There is pulmonary vascular c ongestion. Airspace opacities are seen bilaterally. No large pleural effusion or pneumothorax is iden tified. The skeletal structures are osteopenic. The bony thorax is grossly intact. Arthritic change i s noted in the shoulders. IMPRESSION: 1. Cardiomegaly with evidence of congestive failure. 2. Bilateral airspace opacities could represent mild pulmonary edema and/or an infectious/inflammator y pneumonitis. Clinical correlation will be required and radiographic follow-up to resolution is samra mmended. ACT 112: Negative or not required by law. Electronically signed by: Davin Durbin M.D. 05/20/2024 12:02 PM
[2024-05-20 12:13] LABS: Thyroid Stimulating Hormone 0.442 uIu/ml (0.300-4.500)
[2024-05-20 12:34] LABS: Adenovirus PCR Not Detected (NotDetected); Bordetella parapertussis PCR Not Detected (NotDetected); Bordetella pertussis PCR Not Detected (NotDetected); Chlamydia pneumoniae PCR Not Detected (NotDetected); Coronavirus 229E PCR Not Detected (NotDetected); Coronavirus CoV-2 (COVID19)PCR Not Detected (NotDetected); Coronavirus HKU1 PCR Not Detected (NotDetected); Coronavirus NL63 PCR Not Detected (NotDetected); Coronavirus OC43PCR Not Detected (NotDetected); Human Metapneumovirus PCR Not Detected (NotDetected); Influenza A PCR Not Detected (NotDetected); Influenza B PCR Not Detected (NotDetected); Mycoplasma pneumoniae PCR Not Detected (NotDetected); Parainfluenza Virus 1 PCR Not Detected (NotDetected); Parainfluenza Virus 2 PCR Not Detected (NotDetected); Parainfluenza Virus 3 PCR Not Detected (NotDetected); Parainfluenza Virus 4 PCR Not Detected (NotDetected); Respiratory Syncytial VirusPCR Not Detected (NotDetected); Rhinovirus/Enterovirus PCR Not Detected (NotDetected)
[2024-05-20 13:02] LABS: INR 1.1 (0.9-1.1)
[2024-05-20] MEDS: ACETAMINOPHEN 1,000 MG/100 ML VIAL IV STA (13:08)
[2024-05-20 13:32] LABS: Appearance Urine Clear (Clear); Bacteria Urine Automated None Seen (None Seen); Bilirubin Urine Negative (Negative); Blood Urine Negative (Negative); Cast Urine Automated 0-2 /lpf (0-2); Color Urine Yellow; Epithelial Cell Urine Auto 0-2 /hpf (0-2); Glucose Urine UA Negative (Negative); Ketones Urine Negative (Negative); Leukocyte Esterase Urine Trace (Negative); Nitrite Urine Negative (Negative); Protein Urine Negative (Negative); RBC Urine Automated 0-2 /hpf (0-2); Specific Gravity Urine 1.013 (1.000-1.030); Urobilinogen Urine Negative (Negative); WBC Urine Automated 0-5 /hpf (0-5)
--- NOTE | 2024-05-20 14:57 | Electrocardiogram Report ---
Test Reason : Blood Pressure : */* mmHG Vent. Rate : 154 BPM Atrial Rate : 308 BPM P-R Int : * ms QRS Dur : 120 ms QT Int : 308 ms P-R-T Axes : * 193 -38 degrees QTcB Int : 493 ms Atrial flutter with 2:1 A-V conduction Low voltage QRS Right bundle branch block Cannot rule out Inferior infarct , age undetermined Abnormal ECG When compared with ECG of 28-Dec-2023 07:24, Significant changes have occurred Confirmed by Bernabe Gold ([id number]) on 05/20/2024 2:57:07 PM Referred By: Confirmed By: Bernabe Gold
[2024-05-20] MEDS: cefTRIAXone SODIUM 2,000 MG/50 ML BAG IV STA (15:12)
[2024-05-20] MEDS: AZITHROMYCIN 250 MG TAB PO ONE (15:12)
--- NOTE | 2024-05-20 17:37 | History & Physical Report ---
Date of Service May 20, 2024 Assessment & Plan (1) Atrial flutter with rapid ventricular response: Plan: Pt presented with symptoms of a racing heartbeat that started the morning of arrival. Associated mild SOB and feeling that his heart was fluttering; no CP, orthopnea, PND, productive cough. H/o HFpEF (? previous echo). - Admit - EKG: Atrial flutter with 2:1 A-V conduction; Low voltage QRS; Right bundle branch block - CXR: Cardiomegaly with evidence of congestive failure; Bilateral airspace opacities- rather similar findings compared to 12/2023 film - Mild adventitious breath sounds on exam; no wheezing - No CP, orthopnea - Continue at home amiodarone 200mg - Metoprolol tartrate 5mg IV x 4 (20mg IV total given) in ED, did provide some decrease in HR - HR remains elevated 106 but BP 99/70 - Rate control with metoprolol tartrate 12.5 mg TID - If no improvement with rate control from beta irais, consider amiodarone drip H/o HFpEF - Mild volume overload on exam but BP soft - BNP today 61 - No increase in diuresis at this time; Cont at home Lasix 40mg BID - ? most recent echo Plan HTN- Hold isosorbide mononitrate DM- Hold home glimepiride, metformin, lisinopril HLD- Cont atorvastatin COPD- Cont at home inhalers Mood- continue sertraline 100mg BPH- continue tamsulosin 0.4mg Cont at home KCl 20 mEq BID Dispo: Med/surg VTE Prophylaxis: On at home Xarelto 20mg, continue Code: Full Admission and Anticipated Discharge Date Admission Date: 05/20/2024 History of Present Illness Chief Complaint: Racing heart Primary Care Provider: Darrin Mejia Pt had presented to ED for symptoms of a racing heart. Most recent admission for a.flutter with RVR, ultimately managed with electrical cardioversion and amiodarone. ED course: CBC grossly WNL, coag panel WNL, CMP gluc 102, phosphorus 2.1, bilirubin 1.2; troponin 12.6, BNP 61; UA grossly WNL. CXR: cardiomegaly with evidence of congestive failure + bilateral airspace opacities could represent mild pulmonary edema and/or an infectious/inflammatory pneumonitis. EKG: Atrial flutter with 2:1 A-V conduction, Low voltage QRS, Right bundle branch block, ventricular rate 154, atrial rate 308. Metoprolol tartrate 5 mg IV x 4 (20mg total) provided in ED. Pt is a 68 y/o M with mild intellectual developmental disability, HFpEF, A. flutter with RVR, A. fib with RVR on Xarelto, sleep apnea, CAD, HTN, DMT2 who presented with symptoms of a racing heart that started in the morning. Reports that he was not doing anything in particular that caused these symptoms, and they came on randomly. Reports very minimal shortness of breath, and some feelings of fluttering in his chest. Denies orthopnea, chest pain, productive cough, LE swelling, N/V/C, recent illness. Reports that he was recently in the hospital for similar symptoms. Pt's economic specialist was not present at the time of my visit with the patient, so history is limited. Allergies Allergy/AdvReac Type Severity Reaction Status Date / Time No Known Allergies Allergy Verified 05/16/19 14:43 Home Medications Medication Instructions Recorded Confirmed Type Lactobacillus acidophilus 100 mg 100 mg PO BID 03/29/19 05/20/24 History (1 billion cell) capsule isosorbide mononitrate 30 mg 30 mg PO QAM 03/29/19 05/20/24 History tablet,extended release 24 hr ketoconazole 2 % shampoo 1 appln topical UD 03/29/19 05/20/24 History lisinopril 5 mg tablet 2.5 mg PO QAM 03/29/19 05/20/24 History triamcinolone acetonide 0.1 % 1 appln topical UD 03/29/19 05/20/24 History topical cream atorvastatin 10 mg tablet 10 mg PO QAM 12/25/23 05/20/24 History furosemide 40 mg tablet 40 mg PO BID 12/25/23 05/20/24 History glimepiride 2 mg tablet 2 mg PO QAM 12/25/23 05/20/24 History metformin 500 mg tablet,extended 500 mg PO BID 12/25/23 05/20/24 History release 24 hr potassium chloride 20 mEq/15 mL 20 meq PO BID 12/25/23 05/20/24 History oral liquid rivaroxaban 20 mg tablet (Xarelto) 20 mg PO PM 12/25/23 05/20/24 History sertraline 100 mg tablet 100 mg PO HS 12/25/23 05/20/24 History aspirin 81 mg tablet,delayed 81 mg PO DAILY #30 tabs 12/28/23 05/20/24 Rx release Antifungal Powder 1 applic topical DIRECTED PRN 05/20/24 05/20/24 History Other Benadryl 1 applic topical DIRECTED PRN 05/20/24 05/20/24 History Other Shefali-Lanta 1 dose PO DIRECTED PRN 05/20/24 05/20/24 History Indigestion Milk of Magnesia 2 tbsp PO DIRECTED PRN 05/20/24 05/20/24 History Constipation [place] 3 1,000 mg PO QAM 05/20/24 05/20/24 History Oyster Don 1 tab PO BID 05/20/24 05/20/24 History Vicks Vaporub 1 applic topical DIRECTED PRN 05/20/24 05/20/24 History Other acetaminophen 1 tab PO DIRECTED PRN Pain 05/20/24 05/20/24 History albuterol sulfate 90 mcg/actuation 2 puff inhalation DIRECTED PRN 05/20/24 05/20/24 History aerosol inhaler (Ventolin HFA) excercise/sob amiodarone 200 mg tablet 200 mg PO QAM 05/20/24 05/20/24 History budesonide-formoterol HFA 80 2 puff inhalation DIRECTED PRN 05/20/24 05/20/24 History mcg-4.5 mcg/actuation aerosol sob inhaler chlorpheniramine-acetaminophen 2 2 tab PO DIRECTED PRN cold/flu 05/20/24 05/20/24 History mg-325 mg tablet guaifenesin 100 mg/5 mL oral 200 mg PO Q4H PRN Cough 05/20/24 05/20/24 History liquid (MAXTussin) ibuprofen 200 mg tablet 800 mg PO Q8H PRN Pain 05/20/24 05/20/24 History loperamide 2 mg tablet 4 mg PO DIRECTED PRN Diarrhea 05/20/24 05/20/24 History (Anti-Diarrheal (loperamide)) neomycin-bacitracn Zn-polymyx 3.5 1 applic topical DAILY PRN Other 05/20/24 05/20/24 History mg-400 unit-5,000 unit/gram top oint (Triple Antibiotic) nitroglycerin 0.4 mg sublingual 0.4 mg sublingual DIRECTED PRN 05/20/24 05/20/24 History tablet Chest Pain tamsulosin 0.4 mg capsule 0.4 mg PO PM 05/20/24 05/20/24 History vitamin A and D 1 applic topical DIRECTED PRN 05/20/24 05/20/24 History Other Past Med/Surg History Problem List (Updated 05/20/24 @ 17:30 by Alex Armenta MD) On rivaroxaban therapy (Acute) COPD (chronic obstructive pulmonary disease) (Acute) Pneumonia (Acute) Acute heart failure with preserved ejection fraction Atrial flutter with rapid ventricular response (Acute) Atrial fibrillation with rapid ventricular response (Acute) Sleep apnea Diabetes mellitus CAD (coronary artery disease) Hematuria, microscopic Hyperlipidemia Hypertension Incontinence Nocturia Medical History Benign prostatic hyperplasia with urinary obstruction Social History Smoking Status: Former smoker Second Hand Exposure: No; Do You Dip or Chew Tobacco: No; Hx Alcohol Use: No Hx Substance Use: No Preferred Language: Turkmen Communication Ability: Effective Toll Line Inspector Required: No Beliefs That Will Affect Care: None Current Living Situation: Personal Care Facility Feels Safe at Home: Yes Assistive Devices: None Review of Systems Constitutional: no fever, no chills and no weight gain Eyes: no worsening vision Ear, Nose, Mouth, Throat: no nasal discharge Respiratory: + cough; no chest congestion, no dyspnea , no dyspnea on exertion and no sputum production Cardiovascular: + dyspnea; no chest pain, no dyspnea at rest, no orthopnea, no palpitations and no calf pain Gastrointestinal: + diarrhea/loose stools (ongoing); no na usea, no vomiting and no constipation Genitourinary: no dysuria Integumentary: no rash Neurologic: no tingling and no numbness Physical Exam Constitutional: + obese; no acute distress Eyes: Left eye does not focus well during visit Respiratory: normal respiratory effort; does not use accessory muscles and no cough Auscultation: + crackles (BLL); no wheezes Cardiovascular: Rate/Rhythm: regular rhythm and + tachycardic Heart Sounds: normal S1 and normal S2; no murmur Extremities: + edema (1+, bilateral LE to level of mid-martin) Gastrointestinal (Abdomen): normal bowel sounds, soft, nontender, no hepatosplenomegaly Neurologic: Mild developmental intellectual disability Results & Data Results & Data Vital Signs (Past 12 Hours) Vital Signs Temp Pulse Pulse Resp BP BP Pulse Ox 05/20/24 16:54 100 H 05/20/24 15:45 112 H 05/20/24 15:45 112 H 05/20/24 15:17 122 H 20 99/78 L 96 05/20/24 15:12 124 H 100/71 05/20/24 14:24 132 H 21 95 05/20/24 14:15 102/77 05/20/24 14:12 143 H 23 92 05/20/24 14:00 83/66 L 05/20/24 14:00 131 H 19 90 05/20/24 13:45 90/76 L 05/20/24 13:39 129 H 18 93 05/20/24 13:30 121 H 19 92 05/20/24 13:24 115/87 05/20/24 13:24 142 H 22 05/20/24 13:15 127 H 21 94 05/20/24 13:09 149 H 19 95 05/20/24 13:09 97/74 L 05/20/24 13:08 149 H 97/74 L 05/20/24 13:00 108/88 05/20/24 13:00 137 H 19 93 05/20/24 12:51 138 H 22 94 05/20/24 12:45 101/79 05/20/24 12:42 148 H 27 H 93 05/20/24 12:32 128 H 98/81 L 05/20/24 12:30 136 H 21 92 05/20/24 12:30 98/81 L 05/20/24 12:28 138 H 05/20/24 12:06 119 H 22 92 05/20/24 11:57 116 H 24 93 05/20/24 11:55 79/62 L 05/20/24 11:46 88/56 L 05/20/24 11:40 95/59 L 05/20/24 11:39 110 H 21 92 05/20/24 11:35 87/65 L 05/20/24 11:30 82/56 L 05/20/24 11:25 102/69 05/20/24 11:23 153 H 94/73 L 05/20/24 11:17 106/79 05/20/24 11:13 154 H 22 92 05/20/24 11:12 95 05/20/24 11:01 36.5 C 155 H 18 115/79 96 O2 Del Method 05/20/24 16:54 05/20/24 15:45 05/20/24 15:45 05/20/24 15:17 Room Air 05/20/24 15:12 05/20/24 14:24 05/20/24 14:15 05/20/24 14:12 05/20/24 14:00 05/20/24 14:00 05/20/24 13:45 05/20/24 13:39 05/20/24 13:30 05/20/24 13:24 05/20/24 13:24 05/20/24 13:15 05/20/24 13:09 05/20/24 13:09 05/20/24 13:08 05/20/24 13:00 05/20/24 13:00 05/20/24 12:51 05/20/24 12:45 05/20/24 12:42 05/20/24 12:32 05/20/24 12:30 05/20/24 12:30 05/20/24 12:28 05/20/24 12:06 05/20/24 11:57 05/20/24 11:55 05/20/24 11:46 05/20/24 11:40 05/20/24 11:39 05/20/24 11:35 05/20/24 11:30 05/20/24 11:25 05/20/24 11:23 05/20/24 11:17 05/20/24 11:13 Room Air 05/20/24 11:12 Room Air 05/20/24 11:01 Room Air Laboratory Results 05/20/24 05/20/24 05/20/24 13:00 11:20 11:14 WBC 9.51 RBC 5.03 Hgb 16.5 Hct 47.4 MCV 94.2 MCH 32.8 MCHC 34.8 RDW Std Deviation 46.5 H RDW Coeff of Edgar 13.2 Plt Count 157 MPV 12.1 Immature Gran % (Auto) 0.4 Neut % (Auto) 77.9 Lymph % (Auto) 9.3 Lamar % (Auto) 11.9 Eos % (Auto) 0.2 Baso % (Auto) 0.3 Neut # (Auto) 7.41 H Lymph # (Auto) 0.88 L [place] # (Auto) 1.13 H Eos # (Auto) 0.02 Baso # (Auto) 0.03 Immature Gran # (Auto) 0.04 PT 12.0 INR 1.1 Sodium 136 Potassium 3.9 Chloride 100 Carbon Dioxide 27 Anion Gap 9 BUN 19 Creatinine 1.40 Est Cr Clr Drug Dosing 63.0 eGFR 54.41 BUN/Creatinine Ratio 13.6 Glucose 102 H Calcium 9.3 Phosphorus 2.1 L Magnesium 1.7 Total Bilirubin 1.2 H AST 18 ALT 15 Alkaline Phosphatase 54 Troponin I High Sens 12.6 B-Natriuretic Peptide 61 Total Protein 7.7 Albumin 4.3 Globulin 3.4 Albumin/Globulin Ratio 1.3 Lipase 16 Procalcitonin 0.08 TSH 0.442 Urine Color Yellow Urine Appearance Clear Urine pH 5.0 Ur Specific [place] 1.013 Urine Protein Negative Urine Glucose (UA) Negative Urine Ketones Negative Urine Blood Negative Urine Nitrite Negative Urine Bilirubin Negative Urine Urobilinogen Negative Ur Leukocyte Esterase Trace H Urine WBC (Auto) 0-5 Urine RBC (Auto) 0-2 U Hyaline Cast (Auto) 0-2 U Epithel Cells (Auto) 0-2 Urine Bacteria (Auto) None Seen Adenovirus (PCR) Not Detected B. pertussis DNA (PCR) Not Detected B.parapertussis DNA PCR Not Detected C. pneumoniae DNA (PCR) Not Detected Coronavirus OC43 (PCR) Not Detected Coronavirus HKU1 (PCR) Not Detected Coronavirus 229E (PCR) Not Detected SARS-CoV-2 (PCR) Not Detected Coronavirus NL63 (PCR) Not Detected Human Metapneumovir PCR Not Detected Influenza Type A (PCR) Not Detected Influenza Type B (PCR) Not Detected M. pneumoniae (PCR) Not Detected Parainfluenza 1 (PCR) Not Detected Parainfluenza 2 (PCR) Not Detected Parainfluenza 3 (PCR) Not Detected Parainfluenza 4 (PCR) Not Detected RSV (PCR) Not Detected Entero/Rhino (PCR) Not Detected Diagnostic Findings Chest X-Ray 05/20/24 11:13 SINGLE VIEW CHEST CLINICAL HISTORY: Atypical chest pain FINDINGS: 2 AP, portable, upright chest radiographs are compared to study dated 12/25/2023. The heart is enlarged noting atherosclerotic calcification of the thoracic aorta. There is pulmonary vascular congestion. Airspace opacities are seen bilaterally. No large pleural effusion or pneumothorax is identified. The skeletal structures are osteopenic. The bony thorax is grossly intact. Arthritic change is noted in the shoulders. IMPRESSION: 1. Cardiomegaly with evidence of congestive failure. 2. Bilateral airspace opacities could represent mild pulmonary edema and/or an infectious/inflammatory pneumonitis. Clinical correlation will be required and radiographic follow-up to resolution is recommended. ACT 112: Negative or not required by law. Electronically signed by: Davin Durbin M.D. 05/20/2024 12:02 PM ECG Additional Comments: Blood Pressure : */* mmHG Vent. Rate : 154 BPM Atrial Rate : 308 BPM P-R Int : * ms QRS Dur : 120 ms QT Int : 308 ms P-R-T Axes : * 193 -38 degrees QTcB Int : 493 ms Atrial flutter with 2:1 A-V conduction Low voltage QRS Right bundle branch block Cannot rule out Inferior infarct , age undetermined Abnormal ECG When compared with ECG of 28-Dec-2023 07:24, Significant changes have occurred Confirmed by Bernabe Gold ([id number]) on 05/20/2024 2:57:07 PM Referred By: Confirmed By: Bernabe Gold Code Status & VTE Plan Code Status Full VTE Prophylaxis Plan VTE Prophylaxis will be ordered: Yes Supervising Physician Co-Signing Physician Notes I personally examined the patient and verified all carlin points of history and exam, discussed case, and agree with decision making with Keanu Aden PAC feeling ok no sob. notes that he came due to HR racing sensation that started yesterday. seems to be feeling better now. vitals noted nad heent nc at mmm breathing unlabored lungs clear except maybe faint base rales L (laying on L side) HR ~110 when i saw him, appearing most c/w afib on monitor labs and EKG reviewed tachycardia - afib/flutter - feeling better with rate control - considered amio bolus/gtt since BP lower end and he's already on amio, but since improving with rate control and no clear need for rhythm control at this time - metoprolol PO (12.5 tid, titrate as needed) -- if HR more refractory can then fall back on amio as backup plan mild acute diastolic CHF - rate related. lung exam cleared from when PAC saw to when i saw in follow up, and no sx - suggesting this is mild and resolving with rate control. given lower-end BP would hold off on lasix at this time, if dyspnea/O2 requirement then can consider bipap or lasix gtt - but suspect with rate control this will continue to improve without further intervention anticoagulated otherwise as above PG Care Time/CCT Total # of Minutes Spent Total Time Spent with Patient: Total time spent is greater than 50% in coordination of care (as documented) at patient's floor/unit and/or counseling patient: [place] [address] INT INP/OBS CARE 3/75MIN Patient Type Established Medical Decision Making Moderate Complexity Diagnoses Atrial flutter with rapid ventricular response I48.92 Time Spent (min) 40
[2024-05-20] MEDS ORDERED: POLYETHYLENE (MIRALAX) 17 GM PACK PO PRN (22:03)
[2024-05-20] MEDS ORDERED: BUDESONIDE/FORMOTEROL FUMARATE 80/4.5 60 PUFFS/INHALER INH PRN (22:03)
[2024-05-20] MEDS ORDERED: MELATONIN 3 MG TAB PO PRN (22:03)
[2024-05-20] MEDS ORDERED: ALBUTEROL HFA 8 GM INHALER INH PRN (22:03)
[2024-05-20] MEDS ORDERED: CARBOHYDRATES FOR HYPOGLYCEMIA PO PRN (22:30)
[2024-05-20] MEDS ORDERED: GLUCAGON FOR INJ 1 MG VIAL SQ PRN (22:30)
[2024-05-20] MEDS ORDERED: GLUCOSE 10 TAB/TUBE PO PRN (22:30)
[2024-05-20] MEDS ORDERED: GLUCOSE 40% GEL 15 GM TUBE PO PRN (22:30)
[2024-05-20] MEDS ORDERED: DEXTROSE 50% 50 ML SYRINGE IV PRN (22:30)
[2024-05-20] MEDS: FUROSEMIDE 40 MG TAB PO SCH (22:57)
[2024-05-20] MEDS: METOPROLOL TARTRATE 25 MG TAB PO SCH (22:57)
[2024-05-20] MEDS: INSULIN ASPART PER UNIT CHARGE SC SCH (22:57)
[2024-05-20] MEDS: POTASSIUM CHLORIDE 20 MEQ/15 ML UDC PO SCH (22:58)
[2024-05-20] MEDS: SERTRALINE HCL 100 MG TABLET PO SCH (22:58)
[2024-05-20] MEDS: RIVAROXABAN 20 MG TAB PO SCH (22:58)
[2024-05-20] MEDS: TAMSULOSIN HCL 0.4 MG CAP PO SCH (22:58)
--- OUTSIDE RECORDS SUMMARY | 2024-05-20 23:14 | External Medical Summary | Summary of Care ---
Author Name Unknown Organization [facility] Address [address] [facility] [address] Phone [phone] Care Team Providers Care Digital Media Buyer Name Role Phone Unavailable Primary Care Provider Unavailabl e Reason for Visit * Reason Comments Medical Nutrition Therapy Follow Up Encounter Details Date Type Department Care Team (Latest Contact Info) Description 03/21/2024 2:00 PM EDT Nutrition Services Nutrition, [facility] [address] [place] [id number] Briseyda Rose RDN [address] [place] [id number] Obesity, Class III, BMI 40-49.9 (morbid obesity) ([facility])*; Type 2 diabetes mellitus with hemoglobin A1c goal of less than 7.0% ([facility]) Allergies No known active allergiesdocumented as of this encounter (statuses as of 03/21/2024) Medications Medication Sig Dispensed Refills Start Date End Date Status Acidophilus Oral Capsule Take 1 Capsule by mouth 2 times a day. Active Aspirin EC 81 MG Oral Tablet Delayed Release Take 81 mg by mouth daily. Active Arformoterol Tartrate 15 MCG/2ML Inhalation Nebulization Solution (Brovana) Inhale by mouth 2 times a day. Active Budesonide 0.25 MG/2ML Inhalation Suspension (Pulmicort) Inhale 0.25 mg via nebulizer 2 times a day. Active Furosemide 40 MG Oral Tablet (Lasix) Take 40 mg by mouth daily. Active Glimepiride 1 MG Oral Tablet (Amaryl) Take 1 mg by mouth daily before breakfast. Active Lisinopril 2.5 MG Oral Tablet (Prinivil) Take 2.5 mg by mouth daily. Active metFORMIN HCl ER 500 MG Oral Tablet Extended Release 24 Hour (Glucophage XR) Take 1,000 mg by mouth daily. Active Metoprolol Tartrate 25 MG Oral Tablet (Lopressor) Take 25 mg by mouth 2 times a day. Active Oyster Shell Calcium 500 MG Oral Tablet Take 500 mg by mouth daily. Active Potassium Chloride 10 % Oral Solution Take 15 mL by mouth. Active Miconazole Nitrate 2 % External Powder (Zeasorb-AF) Apply topically to affected area daily. Apply daily up to 14 days Active documented as of this encounter (statuses as of 03/21/2024) Active Problems No known active problems documented as of this encounter (statuses as of 03/21/2024) Social History Tobacco Use Types Packs/Day Years Used Date Smoking Tobacco: Former Smokeless Tobacco: Never Alcohol Use Standard Drinks/Week Comments Yes 0 (1 standard drink = 0.6 oz pur e alcohol) Occ- Rare Utilities Answer Date Recorded Do you have trouble paying y our heating, water, or electric bill? (Adult - for ages 18 years and over) Not on file 01/26/2024 Is your family able to pay t he heat, water, or electric bill? (Household - for ages 0-17 years) Not on file 01/26/2024 Does your family have access to good internet? (Household - for ages 0-17 years) Not on file 01/26/2024 Social Connections Answer Date Recorded How often do you feel lonely or isolated from those around you? (Adult - for ages 18 years and over) Not on file 01/26/2024 Sex and Gender Information Value Date Recorded Sex Assigned at Not on file Gender Identity Not on file Sexual Orientation Not on file Job Start Date Occupation Industry Not on file Not on file Not on file documented as of this encounter Last Filed Vital Signs Vital Sign Reading Time Taken Comments Blood Pressure - - Pulse - - Temperature - - Respiratory Rate - - Oxygen Saturation - - Inhaled Oxygen Concentration - - Weight 122.2 kg (269 lb 6.4 oz) 03/21/2024 2:04 PM EDT Height 167.6 cm (5' 6") 03/21/2024 2:04 PM EDT Body Mass Index 43.48 03/21/2024 2:04 PM EDT documented in this encounter Patient Instructions * Patient Instructions* Briseyda Rose RDN - 03/21/2024 2:35 PM EDT Patient will continue with present meal regimen. Patient will treat symptoms of low blood sugar as recommended (see sheet). Patient will continue with present activity regimen. documented in this encounter Progress Notes * Briseyda Rose RDN - 03/21/2024 2:04 PM EDT NUTRITION FOLLOW-UP NOTE - OUTPATIENT [facility] Name: Shaka Neri Location: [facility] Date: 03/21/2024 Time: 2:04 PM Patient was identified by name and date. Patient was seen [id number] in the clinic. Reason for Nutrition Follow-up: Overweight/Obesity, Type 2 Diabetes NUTRITION ASSESSMENT: Client History Patient is a 68 year old male being seen for above issues. He is accompanied by [facility] facility staff member. Support System: facility staff Barriers to Learning: Unable to read Special Education Needs: Verbal instructions and Instruct caregiver Physical Activity: some walking Food/Nutrition-Related History Describes typical diet history/24 hr recall Breakfast: eggs, toast with butter or grilled cheese or Cheerios with 1% milk, orange juice, coffeewith sweetened creamer Snacks: none Lunch: PBJ sandwich or lunch meat-salami and cheese sandwich with osorio and ketchup or fresh fruit-watermelon or banana, coffee with sweetened creamer, flavored water Snacks: chips or popcorn Dinner: macaroni & cheese, mixed vegetables or pork, potatoes, vegetable, flavored water Snacks: 2 scoops ice cream or sherbet Drinks: diet flavored water, coffee 1-3 cups daily-48 ounces daily Restaurant meals: once a week, twice a week at the most Alcohol: None Tobacco Use: No Drug Use: No Diet Recall/Food Logs Indicate: AREAS FOR IMPROVEMENT: High calorie, high fat and/or high sugar selections Inadequate fiber intake Inadequate fruit and vegetable intake Inadequate fluid intake POSITIVE: Portion control Uses calorie free beverages Good meal distribution Food and Nutrient Intake and other pertinent information: Patient notes Medications Changes/Updates: None reported Nutrition-Focused Physical Findings Overall appearance: overweight/obese Digestive system: No issues, Appetite: good Nerves and cognition: Awake, alert and Oriented Anthropometric Measurements Current Weight: Wt Readings from Last 1 Encounters: 03/21/24 122.2 kg (269 lb 6.4 oz) Wt Readings from Last 4 Encounters: 03/21/24 122.2 kg (269 lb 6.4 oz) 08/05/23 125.1 kg (275 lb 11.2 oz) 02/04/23 130 kg (286 lb 8 oz) 10/27/22 133.5 kg (294 lb 6.4 oz) Weight Change: decreased by 6 pounds in the past 8 months per EPIC review BMI Readings from Last 1 Encounters: 03/21/24 43.48 kg/m Biochemical Data, Medical Tests, and Procedures Glucose log [id number]. No other labs available. Previous Nutrition Diagnosis: Overweight/obesity related to High calorie, high fat and/or high sugar selections, Inadequate fiberintake, Inadequate fruit and vegetable intake, Inadequate fluid intake as evidenced by Reported diet and/or activity recall, Body mass index is 44.5 kg/m. Progress towards goals: Patient will increase activity by walking outside or walking inside the house for 5 minutes at a time, at least 3 times a week. Partially MET Patient will include a serving of fruit at breakfast and a serving of fruit or vegetables at lunch and/or dinner at least 4 times a week. MET Patient will increase fluid intake to at least 48 ounces daily most days of the week. Try to make 1/2 of this come from water. MET CURRENT NUTRITION DIAGNOSIS Overweight/obesity related to High calorie, high fat and/or high sugar selections, Inadequate fiberintake, Inadequate fruit and vegetable intake, Inadequate fluid intake as evidenced by Reported diet and/or activity recall, Body mass index is 43.48 kg/m. NUTRITION INTERVENTION: NUTRITION EDUCATION Initial/brief nutrition education NUTRITION COUNSELING Strategies Nutrition Prescription: Diet: Consistent Carbohydrate Weight Management Daily Calorie Needs: 1800 Kcals Daily Protein Needs: 75-80 Grams protein Current Goals: Patient will continue with present meal regimen. Patient will treat symptoms of low blood sugar as recommended (see sheet). Patient will continue with present activity regimen. Dietitian Action: Encouraged patient to treat hypoglycemia by drinking juice or regular soda if glucose levels are below 70. States he does not experience symptoms of hypoglycemia. Patient still receives menus monitored by [employer] menu system. He occasionally sleeps during mealtime, but staff member notes pt often eats something after he awakens. Encouraged him to avoid skipping meals and increase intake of fruits & vegetables, and to increase fluids to at least 48 ounces daily, mostly of water. Other Education Material: Hypoglycemia handout Recommendations to Ordering Provider: Continue current plan of nutrition care. NUTRITION MONITORING AND EVALUATION: The following will be monitored and evaluated at the next visit: Monitor weight. Monitor goals and progress. Monitor glucose levels. Requested recent labs be sent with pt during next nutrition visit. Plan: Patient scheduled to return in 6 months; dietitian phone # and fax number given for future reference. 30 minutes Medical Nutrition Therapy Time In: 1402 (03/21/24 1632) Time Out: 1436 (03/21/24 1632) 15 min (8-22 min) 30 min (23-37 min) 45 min (38-52 min) 60 min (53-67 min) 75 min (68-82 min) 90 min (83-97 min) 105 min (98-113 min) VALENCIA Sig[facility] [employer] documented in this encounter Plan of Treatment Upcoming Encounters Date Type Department Care Team (Late st Contact Info) Description 09/21/2024 1:00 PM [facility] Nutrition Services Jose Dawn [address] [place] [id number] Briseyda Rose RDN [address] [place] [address] Health Maintenance Due Date Last Done Comments Lipid Panel 1954 Depression Screening 1966 Hepatitis C Screening 1972 DTaP,Tdap,and Td Vaccines (1 - Tdap) 1973 Cologuard 12/18/1999 Colonoscopy 12/18/1999 Colorectal Cancer Screening 12/18/1999 Fecal Occult Blood Test 12/18/1999 Sigmoidoscopy 12/18/1999 Zoster Vaccines (1 of 2) 2004 Pneumococcal Vaccine: 65+ Years (3 of 3 - PPSV23 or PCV20) 05/20/2022 05/20/2017, 07/11/2015 COVID-19 Vaccine (7 - 2022- season) 2023 06/18/2023, 05/14/2022, 12/24/2021, Additional history exists Influenza Vaccine (FLU shot) (#1) 2024 04/30/2023, 04/30/2022, 04/30/2021, Additional history exists Diabetes Screening 06/03/2024 06/03/2021, 0 2020, 09/19/2020, Additional history exists AAA Screening Completed 06/13/2021, 01/02/2021 HPV (Gardasil) Vaccine Aged Out No lo nger eligible based on patient's age to complete this topic Hepatitis B Vaccine Aged Out No longe r eligible based on patient's age to complete this topic MENINGOCOCCAL (MENACTRA/MENVEO) Aged Out No longer eligible based on patient's age to complete this topic documented as of this encounter Medical Devices Not on filedocumented as of this encounter Visit Diagnoses Diagnosis Obesity, Class III, BMI 40-49.9 (morbid obesity) (HCC)- Primary Morbid obesity Type 2 diabetes mellitus with hemoglobin A1c goal of less than 7.0% (HCC) documented in this encounter
[2024-05-21] MEDS: METOPROLOL TARTRATE 25 MG TAB PO STA (00:34)
[2024-05-21] MEDS ORDERED: 0.2 MICRON FILTER SET 1 EACH IV ONE (01:55)
[2024-05-21] MEDS: AMIODARONE / D5W 360 MG/200 ML BAG IV SCH (02:52)
[2024-05-21 06:41] LABS: BUN Creatinine Ratio 15.9 (10-20); Calcium 8.7 mg/dl (8.6-10.3); Creatinine Clr Calc Pharmacy 69.7 ml/min; Potassium 3.8 mmol/L (3.5-5.1)
--- NOTE | 2024-05-21 07:42 | Hospitalist Progress Note ---
Date of Service May 21, 2024 Assessment & Plan (1) COPD (chronic obstructive pulmonary disease): (2) Atrial flutter with rapid ventricular response: (3) Acute heart failure with preserved ejection fraction: (4) Diabetes mellitus: (5) CAD (coronary artery disease): (6) Hyperlipidemia: (7) On rivaroxaban therapy: Plan (1) Atrial flutter with rapid ventricular response Pt presented with symptoms of a racing heartbeat that started the morning of arrival. Associated mild SOB and feeling that his heart was fluttering; no CP, orthopnea, PND, productive cough. H/o HFpEF (? previous echo). - EKG: Atrial flutter with 2:1 A-V conduction; Low voltage QRS; Right bundle branch block - CXR: Cardiomegaly with evidence of congestive failure; Bilateral airspace opacities- rather similar findings compared to 12/2023 film - Procal, 0.08; T, 37.9 C today - Continue at home amiodarone 200mg - Metoprolol tartrate 5mg IV x 4 (20mg IV total given) in ED, did provide some decrease in HR - HR > 120, BP's WNL - Rate control with metoprolol tartrate 12.5 mg TID - amiodarone drip started, 360 mg, q12hr, (0.5 mg/min), IV - Cardiology consulted, appreciated recommendations 2) H/o HFpEF - Mild volume overload on exam but BP soft - BNP, 61 (on admission) - No increase in diuresis at this time; Cont at home Lasix 40mg BID - most recent echo unknown Chronic conditions 3) HTN - Hold isosorbide mononitrate - Cont at home KCl 20 mEq BID 4) DM - Hold home glimepiride, metformin, lisinopril 5) HLD - Cont atorvastatin 6) COPD - Cont at home inhalers 7) Mood (depression/anxiety) - continue sertraline 100mg 8) BPH - continue tamsulosin 0.4mg Dispo: Med/surg w/ Tele VTE Prophylaxis: Xarelto, 20 mg, PO, daily (home med) Code status: Full code Admission and Anticipated Discharge Date Admission Date: May 20, 2024 Supervising Physician Co-Signing Physician Notes I personally examined the patient and verified all carlin points of history and exam, discussed case, and agree with decision making with Dr Villanueva feels good and would like to go home, understands that rates are uncontrolled vitals noted nad heent nc at mmm HR ~120-140 persistently on monitor, predominantly if not entirely aflutter aflutter/RVR - symptoms improved since rates <~150, but still persistently tachy despite metoprolol, amio gtt - probbaly would benefit from cardioversion - d/w cardiology mild acute diastolic CHF - asymptomatic. did not diurese beyond home meds given lower end BPs and "saving BP room" for meds to affect rate control low grade temp - no s/s infection. follow. ?atelectasis anticoagulated otherwise as above Subjective Patient is a 68 yo M w/ a PMHx of who presented to the ED w/ concerns for a racing heart rate and recent history of atrial flutter w/ RVR (treated w/ amiodarone and cardioversion). Today the patient states he is feeling well and is interested in going home. Denies all questions regarding presence of any symptoms including cardiac, respiratory, etc. Denies feelings of feverishness, chills, nausea, or vomiting. Review of Systems Constitutional: no fever, no chills, no body aches and no fatigue Ear, Nose, Mouth, Throat: + nasal congestion, + nasal discharge an d + post nasal drip; no sinus pain/pressure and no sore throat Respiratory: + cough; no chest congestion and no dysp guerrero Cardiovascular: no chest pain, no palpitations, no edema and no calf pain Gastrointestinal: + diarrhea/loose stools; no abdominal pa in, no nausea, no vomiting and no constipation Genitourinary: no dysuria or no urinary frequency Neurologic: no tingling, no numbness and no headache(s) Physical Exam Constitutional: WD/WN, vitals as above Respiratory: normal respiratory effort, lungs clear to auscultation normal respiratory effort Auscultation: + diminished lung sounds; no crackles, no rales and no rhonchi Cardiovascular: Rate/Rhythm: regular rhythm and + tachycardic Extremities: no calf tenderness and no pedal edema Gastrointestinal (Abdomen): normal bowel sounds, soft, nontender, no hepatosplenomegaly Psychiatric: Orientation: alert, oriented to person, oriented to place and cooperative; + not oriented to time oriented to why he was admitted to hospital Results & Data Results & Data Vital Signs (Past 12 Hours) Vital Signs Temp Pulse Pulse Pulse Resp BP BP 05/21/24 07:33 36.8 C 97 H 18 117/82 05/21/24 07:27 100 H 05/21/24 07:27 05/21/24 06:00 104 H 111/70 05/21/24 05:00 94 H 105/73 05/21/24 04:00 107 H 100/73 05/21/24 03:50 114 H 05/21/24 03:50 05/21/24 02:35 37.6 C H 123 H 20 112/73 05/21/24 00:46 36.6 C 117 H 20 126/75 05/20/24 22:15 05/20/24 22:15 36.8 C 91 H 19 120/76 05/20/24 21:01 112 H 20 100/68 05/20/24 20:47 108 H Pulse Ox O2 Del Method 05/21/24 07:33 94 Room Air 05/21/24 07:27 05/21/24 07:27 Room Air 05/21/24 06:00 05/21/24 05:00 05/21/24 04:00 05/21/24 03:50 05/21/24 03:50 Room Air 05/21/24 02:35 93 Room Air 05/21/24 00:46 92 Room Air 05/20/24 22:15 Room Air 05/20/24 22:15 95 Room Air 05/20/24 21:01 94 05/20/24 20:47 (1) COPD (chronic obstructive pulmonary disease) COPD type: unspecified COPD Qualified Code(s): J44.9 - Chronic obstructive pulmonary disease, unspecified
[2024-05-21] MEDS: AMIODARONE 200 MG TAB PO SCH (08:18)
[2024-05-21] MEDS: ASPIRIN 81 MG ECTAB PO SCH (08:18)
[2024-05-21] MEDS: ATORVASTATIN 10 MG TAB PO SCH (08:18)
[2024-05-21] MEDS ORDERED: ACETAMINOPHEN 500 MG TAB PO PRN (12:30)
--- NOTE | 2024-05-21 14:47 | Billing Data ---
Date of Service May 21, 2024 Coding Level of Care Code 26150 SUB INP/OBS CARE MIN
--- NOTE | 2024-05-22 07:50 | Hospitalist Progress Note ---
Date of Service May 22, 2024 Assessment & Plan (1) COPD (chronic obstructive pulmonary disease): (2) Atrial flutter with rapid ventricular response: (3) Acute heart failure with preserved ejection fraction: (4) Diabetes mellitus: (5) CAD (coronary artery disease): (6) Hyperlipidemia: (7) On rivaroxaban therapy: Plan (1) Atrial flutter with rapid ventricular response Pt presented with symptoms of a racing heartbeat that started the morning of arrival. Associated mild SOB and feeling that his heart was fluttering; no CP, orthopnea, PND, productive cough. H/o HFpEF (? previous echo). - EKG: Atrial flutter with 2:1 A-V conduction; Low voltage QRS; Right bundle branch block - CXR: Cardiomegaly with evidence of congestive failure; Bilateral airspace opacities- rather similar findings compared to 12/2023 film - Procal, 0.08; T, WNL since yesterday - Continue at home amiodarone 200mg - Metoprolol tartrate 5mg IV x 4 (20mg IV total given) in ED - HR > 120, pt in AFib per telemetry, BP's WNL - Rate control with metoprolol tartrate 12.5 mg TID - amiodarone drip started, 360 mg, q12hr, (0.5 mg/min), IV - Cardiology consulted, appreciated recommendations 2) H/o HFpEF - Mild volume overload on exam but BP soft - BNP, 61 (on admission) - No increase in diuresis at this time; Cont at home Lasix 40mg BID - most recent echo unknown Chronic conditions 3) HTN - Hold isosorbide mononitrate - Cont at home KCl 20 mEq BID 4) DM - Hold home glimepiride, metformin, lisinopril 5) HLD - Cont atorvastatin 6) COPD - Cont at home inhalers 7) Mood (depression/anxiety) - continue sertraline 100mg 8) BPH - continue tamsulosin 0.4mg Dispo: Med/surg w/ Tele VTE Prophylaxis: Xarelto, 20 mg, PO, daily (home med) Code status: Full code Admission and Anticipated Discharge Date Admission Date: May 21, 2024 Supervising Physician Co-Signing Physician Notes I personally examined the patient and verified all carlin points of history and exam, discussed case, and agree with decision making with Dr Villanueva feels good and would like to go home, understands that rates are uncontrolled, appreciate cardiology input vitals noted nad heent nc at mmm HR ~100-120 persistently on monitor aflutter/RVR - symptoms improved since rates <~150, but still persistently tachy despite metoprolol, amio gtt - probably would benefit from cardioversion - appreciate cardiology assist, likely for version tomorrow mild acute diastolic CHF - asymptomatic. did not diurese beyond home meds given lower end BPs and "saving BP room" for meds to affect rate control; 96% on RA and no dyspnea low grade temp - no s/s infection. follow. ?atelectasis. seems to have resolved. anticoagulated otherwise as above Subjective Patient is a 68 yo M w/ a PMHx of who presented to the ED w/ concerns for a racing heart rate and recent history of atrial flutter w/ RVR (treated w/ amiodarone and cardioversion). Today the patient reiterates that he is feeling well and is interested in going home. Denies all questions regarding presence of any symptoms including cardiac, respiratory, etc. Denies feelings of feverishness, chills, nausea, or vomiting. Patient had 2 episodes of urgent diarrhea last night that required him to call the nurse and help him to the bathroom to urgently defacate. Review of Systems Constitutional: no fever, no chills, no body aches and no fatigue Ear, Nose, Mouth, Throat: + nasal congestion, + nasal discharge an d + post nasal drip; no sinus pain/pressure and no sore throat Respiratory: + cough; no chest congestion and no dysp guerrero Cardiovascular: no chest pain, no palpitations, no edema and no calf pain Gastrointestinal: + diarrhea/loose stools; no abdominal pa in, no nausea, no vomiting and no constipation Genitourinary: no dysuria or no urinary frequency Neurologic: no tingling, no numbness and no headache(s) Physical Exam Constitutional: WD/WN, vitals as above Respiratory: normal respiratory effort, lungs clear to auscultation normal respiratory effort Auscultation: + diminished lung sounds; no crackles, no rales and no rhonchi Cardiovascular: Rate/Rhythm: regular rhythm and + tachycardic Extremities: no calf tenderness and no pedal edema Gastrointestinal (Abdomen): normal bowel sounds, soft, nontender, no hepatosplenomegaly Psychiatric: Orientation: alert, oriented to person, oriented to place and cooperative; + not oriented to time Results & Data Results & Data Vital Signs (Past 12 Hours) Vital Signs Temp Pulse Pulse Resp BP Pulse Ox O2 Del Method 05/22/24 07:12 36.9 C 109 H 18 116/81 91 Room Air 05/22/24 02:32 36.7 C 101 H 17 112/68 95 Room Air 05/22/24 00:00 96 H 135/76 05/22/24 00:00 86 05/21/24 23:00 36.9 C 89 18 96/66 L 94 Room Air 05/21/24 20:00 Room Air (1) COPD (chronic obstructive pulmonary disease) COPD type: unspecified COPD Qualified Code(s): J44.9 - Chronic obstructive pulmonary disease, unspecified
--- NOTE | 2024-05-22 11:36 | Cardiology Consultation ---
Date of Consultation May 22, 2024 Assessment & Plan (1) Atrial flutter with rapid ventricular response: -Ventricular response borderline in control. -Agree with intravenous amiodarone and metoprolol tartrate. -Continue Xarelto as you are. -May require electrical cardioversion. -Would keep n.p.o. after midnight. (2) Acute heart failure with preserved ejection fraction: -Compensated at this time. -Continue Lasix as you are. -Consider an echocardiogram. (3) CAD (coronary artery disease): -Diagnosed at hospitalization in December as medications suggested CAD. -Details unknown. -Continue medical management. (4) Hypertension: -Adequate control on current regimen. (5) Hyperlipidemia: -Continue atorvastatin. History of Present Illness Attending Physician: Jorge Jones DO History of Present Illness Mr. Neri is a 68-year-old male admitted on May 20 with atrial flutter and a rapid ventricular response. This consultation was ordered to assist in his cardiac management. Of note, the patient was previously cared for by Drs. Oshea and Matthew. The patient was in his usual state of health until the morning of presentation. He developed palpitations and explained that his heart was "racing." He came to the emergency room for an evaluation and was noted to be in atrial flutter with 21 conduction. He received several doses of intravenous metoprolol and was eventually placed on an amiodarone drip. His ventricular response has been hovering around 100-110 bpm. At no time has experienced chest discomfort. He does carry history of coronary artery disease, however, details are unknown. He was diagnosed with paroxysmal atrial flutter back in December of this year. He eventually underwent an elective electrical cardioversion with Dr. Oshea during that hospitalization. Currently, patient is resting comfortably in bed and without complaints. Past medical and surgical history 1. Coronary artery disease 2. Paroxysmal atrial flutterMay 2023 3. Hypertension 4. Hypercholesterolemia 5. Diastolic CHF 6. RBBB 7. Diabetes mellitus 8. COPD 9. Obesity 10. Obstructive sleep apnea 11. Anxiety/depression 12. BPH 13. Intellectual developmental disability Social history and lives with his in a assisted in [place] No tobacco or alcohol Family history Noncontributory Review of systems A 10 point review of system was undertaken and negative except for that described above. Allergies Allergy/AdvReac Type Severity Reaction Status Date / Time No Known Allergies Allergy Verified 05/16/19 14:43 Home Medications Medication Instructions Recorded Confirmed Type Lactobacillus acidophilus 100 mg 100 mg PO BID 03/29/19 05/20/24 History (1 billion cell) capsule isosorbide mononitrate 30 mg 30 mg PO QAM 03/29/19 05/20/24 History tablet,extended release 24 hr ketoconazole 2 % shampoo 1 appln topical UD 03/29/19 05/20/24 History lisinopril 5 mg tablet 2.5 mg PO QAM 03/29/19 05/20/24 History triamcinolone acetonide 0.1 % 1 appln topical UD 03/29/19 05/20/24 History topical cream atorvastatin 10 mg tablet 10 mg PO QAM 12/25/23 05/20/24 History furosemide 40 mg tablet 40 mg PO BID 12/25/23 05/20/24 History glimepiride 2 mg tablet 2 mg PO QAM 12/25/23 05/20/24 History metformin 500 mg tablet,extended 500 mg PO BID 12/25/23 05/20/24 History release 24 hr potassium chloride 20 mEq/15 mL 20 meq PO BID 12/25/23 05/20/24 History oral liquid rivaroxaban 20 mg tablet (Xarelto) 20 mg PO PM 12/25/23 05/20/24 History sertraline 100 mg tablet 100 mg PO HS 12/25/23 05/20/24 History aspirin 81 mg tablet,delayed 81 mg PO DAILY #30 tabs 12/28/23 05/20/24 Rx release Antifungal Powder 1 applic topical DIRECTED PRN 05/20/24 05/20/24 History Other Benadryl 1 applic topical DIRECTED PRN 05/20/24 05/20/24 History Other Shefali-Lanta 1 dose PO DIRECTED PRN 05/20/24 05/20/24 History Indigestion Milk of Magnesia 2 tbsp PO DIRECTED PRN 05/20/24 05/20/24 History Constipation [place] 3 1,000 mg PO QAM 05/20/24 05/20/24 History Oyster Don 1 tab PO BID 05/20/24 05/20/24 History Vicks Vaporub 1 applic topical DIRECTED PRN 05/20/24 05/20/24 History Other acetaminophen 1 tab PO DIRECTED PRN Pain 05/20/24 05/20/24 History albuterol sulfate 90 mcg/actuation 2 puff inhalation DIRECTED PRN 05/20/24 05/20/24 History aerosol inhaler (Ventolin HFA) excercise/sob amiodarone 200 mg tablet 200 mg PO QAM 05/20/24 05/20/24 History budesonide-formoterol HFA 80 2 puff inhalation DIRECTED PRN 05/20/24 05/20/24 History mcg-4.5 mcg/actuation aerosol sob inhaler chlorpheniramine-acetaminophen 2 2 tab PO DIRECTED PRN cold/flu 05/20/24 05/20/24 History mg-325 mg tablet guaifenesin 100 mg/5 mL oral 200 mg PO Q4H PRN Cough 05/20/24 05/20/24 History liquid (MAXTussin) ibuprofen 200 mg tablet 800 mg PO Q8H PRN Pain 05/20/24 05/20/24 History loperamide 2 mg tablet 4 mg PO DIRECTED PRN Diarrhea 05/20/24 05/20/24 History (Anti-Diarrheal (loperamide)) neomycin-bacitracn Zn-polymyx 3.5 1 applic topical DAILY PRN Other 05/20/24 05/20/24 History mg-400 unit-5,000 unit/gram top oint (Triple Antibiotic) nitroglycerin 0.4 mg sublingual 0.4 mg sublingual DIRECTED PRN 05/20/24 05/20/24 History tablet Chest Pain tamsulosin 0.4 mg capsule 0.4 mg PO PM 05/20/24 05/20/24 History vitamin A and D 1 applic topical DIRECTED PRN 05/20/24 05/20/24 History Other Patient History Medical History Benign prostatic hyperplasia with urinary obstruction Social History Smoking Status: Never smoker Second Hand Exposure: No; Do You Dip or Chew Tobacco: No; Tobacco Cessation Education Requested by Patient: No Hx Alcohol Use: No Hx Substance Use: No Preferred Language: Japanese Communication Ability: Effective Eyelet Cutter Required: No Beliefs That Will Affect Care: None Current Living Situation: Personal Care Facility Other Information That Helps Us Care for You: No Feels Safe at Home: Yes Safety Concerns: Feels Safe At This Time Assistive Devices: None Physical Exam Physical Exam: In general this is an obese white male in no acute distress. HEENT exam is negative. Neck is supple with full carotid upstrokes. There are no carotid bruits. Jugular is pressure is flat at 90 degrees. There is no thyromegaly. Cardiovascular exam reveals a regular rhythm with distant heart sounds. No obvious murmurs. Lungs are clear without rales, rhonchi, or wheezes. Abdomen is obese without bruits. Extremities reveal intact radial artery pulses bilaterally. There is no peripheral edema. Results & Data Vital Signs (Past 12 Hours) Vital Signs Temp Pulse Pulse Resp BP BP Pulse Ox 05/22/24 11:01 36.6 C 74 18 123/85 96 05/22/24 07:12 36.9 C 109 H 18 116/81 91 05/22/24 02:32 36.7 C 101 H 17 112/68 95 05/22/24 00:00 96 H 135/76 05/22/24 00:00 86 O2 Del Method 05/22/24 11:01 Room Air 05/22/24 07:12 Room Air 05/22/24 02:32 Room Air 05/22/24 00:00 05/22/24 00:00 Laboratory Results CBC notes hemoglobin of 16.5, medic at 47.4, white count 9.5, and platelet count 157,000. Electrolytes noted sodium of 136, potassium 3.8, chloride 103, bicarb 26, BUN 20, creatinine 1.26, and a glucose of 123. High-sensitivity troponin is normal at 12.6. BNP is normal at 61. TSH is normal at 0.442 Diagnostic Findings EKG on presentation noted atrial flutter with 2-1 AV conduction. There is a complete right bundle branch block. residential monitor notes atrial flutter with a ventricular sponsor approximately 100-110 bpm. Chest x-ray shows cardiomegaly and interstitial edema. PG Care Time/CCT Total # of Minutes Spent Total Time Spent with Patient: Total time spent is greater than 50% in coordination of care (as documented) at patient's floor/unit and/or counseling patient: Coding Level of Care Code 62976 INT INP/OBS CARE 3/75MIN Diagnoses Atrial flutter with rapid ventricular response I48.92 Acute heart failure with preserved ejection fraction I50.31 CAD (coronary artery disease) I25.10 Hypertension I10 Hyperlipidemia E78.5
--- NOTE | 2024-05-22 14:42 | Billing Data ---
Date of Service May 22, 2024 Coding Level of Care Code 13179 SUB INP/OBS CARE
--- NOTE | 2024-05-23 07:28 | Hospitalist Progress Note ---
Date of Service May 23, 2024 Assessment & Plan (1) COPD (chronic obstructive pulmonary disease): (2) Atrial flutter with rapid ventricular response: (3) Acute heart failure with preserved ejection fraction: (4) Diabetes mellitus: (5) CAD (coronary artery disease): (6) Hyperlipidemia: (7) On rivaroxaban therapy: Plan (1) Atrial flutter with rapid ventricular response Pt presented with symptoms of a racing heartbeat that started the morning of arrival. - EKG: Atrial flutter with 2:1 A-V conduction; Low voltage QRS; Right bundle branch block - CXR: Cardiomegaly with evidence of congestive failure; Bilateral airspace opacities- similar findings compared to 12/2023 film - Ventricular response suboptimally controlled despite tx with Metoprolol + Amiodarone - Cardiology consulted, patient s/p cardioversion with successful conversion to sinus rhythm. - Amiodarone increased to 200mg PO BID - Continue anticoagulation with Xarelto - Plan to observe overnight for continued sinus rhythm, hopefully home in AM. 2) H/o HFpEF - No increase in diuresis at this time - Cont at home Lasix 40mg BID - most recent echo unknown Chronic conditions 3) HTN - Hold isosorbide mononitrate - Cont at home KCl 20 mEq BID 4) DM - Hold home glimepiride, metformin, lisinopril 5) HLD - Cont atorvastatin 6) COPD - Cont at home inhalers 7) Mood (depression/anxiety) - continue sertraline 100mg 8) BPH - continue tamsulosin 0.4mg Dispo: Med/surg w/ Tele VTE Prophylaxis: Xarelto, 20 mg, PO, daily (home med) FEN/GI: T2DM, low Na Code status: Full code Admission and Anticipated Discharge Date Admission Date: May 21, 2024 Supervising Physician Co-Signing Physician Notes Attending Physician Supervision Note: I independently interviewed and examined the patient and verified the carlin history and physical, reviewed labs and image studies and agree with findings and care plan noted above. Also with mild acute diastolic CHF - sec to RVR. asymptomatic. Improved with HR control and continuing home diuretics. Subjective Patient is a 68 yo M w/ a PMHx of who presented to the ED w/ concerns for a racing heart rate and recent history of atrial flutter w/ RVR (treated w/ amiodarone and cardioversion). Today the patient reiterates that he is feeling well - denies chest pain, SOB, palpitations. Telemetry reviewed, overnight course significant for continued atrial flutter, HR max ~140, generally 100-110s Review of Systems Review of Systems: as per HPI Physical Exam Physical Exam: General: Alert and oriented. No acute distress Cardiac: +tachy + irregular rhythm, no murmurs appreciated Respiratory: Lungs clear to auscultation bilaterally, No increased work of breathing Abdominal: Soft, non-tender, non-distended. Bowel sounds present. Results & Data Results & Data Vital Signs (Past 12 Hours) Vital Signs Temp Pulse Pulse Resp BP Pulse Ox O2 Del Method 05/23/24 05:41 98 H 05/23/24 03:22 36.9 C 101 H 16 108/62 91 Room Air 05/23/24 00:48 Room Air 05/22/24 22:49 36.7 C 104 H 18 116/82 94 Room Air 05/22/24 21:55 110 H 05/22/24 19:36 37.2 C 105 H 18 120/82 93 Room Air Resident Activity Tracking Resident Involvement: Resident Care Provided Care Provided: Adult Hospital Medicine (1) COPD (chronic obstructive pulmonary disease) COPD type: unspecified COPD Qualified Code(s): J44.9 - Chronic obstructive pulmonary disease, unspecified
--- NOTE | 2024-05-23 11:54 | Cardiology Progress Note ---
Date of Service May 23, 2024 Assessment & Plan (1) Atrial flutter with rapid ventricular response: (2) Acute heart failure with preserved ejection fraction: (3) CAD (coronary artery disease): (4) Hypertension: (5) Hyperlipidemia: Plan Although he is doing well clinically, rate is still suboptimally controlled and may be difficult to control as long as he is in atrial flutter. Since he was only on low-dose amiodarone as outpatient (200 mg daily), there is room to intensify his regimen, therefore may be reasonable to continue attempts at rhythm control. Will proceed with electrical cardioversion later today (if anesthesiology can accommodate), can then switch from IV amiodarone to oral amiodarone 200 mg twice daily and continue rivaroxaban. If increased amiodarone dosing fails, may need to consider atrial flutter ablation given his breakthrough tachydysrhythmia with high rates (154 bpm on admission). He appears euvolemic on his usual dose of furosemide 40 mg twice daily. He is anxious to return home, if cardioversion is successful and he remains in sinus rhythm, perhaps late today or early tomorrow he could be discharged home. He follows with a live study manager in [place]. Admission and Anticipated Discharge Date Admission Date: May 21, 2024 Subjective Uneventful night, no cardiac complaints currently, anxious to return home. Telemetry showed atrial flutter with ventricular rate 100-120 bpm. Physical Exam Physical Exam: No distress. Afebrile. BP normotensive. Pulse 100-120 bpm. Respirations 19 and unlabored. Skin: no ecchymoses or generalized lesions. HEENT: unremarkable. Neck: JVP at the clavicle at 90 degrees, no carotid bruits. Lungs: clear. Cardiac: Irregular/tachycardic rhythm, normal S1-2, no murmur. Abdomen: benign. Extremities: no edema, pulses intact. Neurologic: Simple affect and conversation, nonfocal. Results & Data Vital Signs (Past 12 Hours) Vital Signs Temp Pulse Pulse Resp BP Pulse Ox O2 Del Method 05/23/24 08:05 Room Air 05/23/24 07:33 97.5 F L 101 H 19 118/84 94 Room Air 05/23/24 05:41 98 H 05/23/24 03:22 98.4 F 101 H 16 108/62 91 Room Air 05/23/24 00:48 Room Air PG Care Time/CCT Total # of Minutes Spent Total Time Spent with Patient: Total time spent is greater than 50% in coordination of care (as documented) at patient's floor/unit and/or counseling patient: Coding Level of Care Code 91111 SUB INP/OBS CARE 3/50MIN Diagnoses Atrial flutter with rapid ventricular response I48.92 Acute heart failure with preserved ejection fraction I50.31 CAD (coronary artery disease) I25.10 Hypertension I10 Hyperlipidemia E78.5
--- NOTE | 2024-05-23 12:09 | Anesthesiology Consultation ---
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 - Misha Oshea MD Height/Weight Height: 5 ft 8 in Weight: 109.3 kg Allergies Allergy/AdvReac Type Severity Reaction Status Date / Time No Known Allergies Allergy Verified 05/16/19 14:43 Medications Home Medications Medication Instructions Recorded Confirmed Last Taken Lactobacillus acidophilus 100 mg 100 mg PO BID 03/29/19 05/20/24 Unknown (1 billion cell) capsule isosorbide mononitrate 30 mg 30 mg PO QAM 03/29/19 05/20/24 Unknown tablet,extended release 24 hr ketoconazole 2 % shampoo 1 appln topical UD 03/29/19 05/20/24 Unknown lisinopril 5 mg tablet 2.5 mg PO QAM 03/29/19 05/20/24 Unknown triamcinolone acetonide 0.1 % 1 appln topical UD 03/29/19 05/20/24 Unknown topical cream atorvastatin 10 mg tablet 10 mg PO QAM 12/25/23 05/20/24 Unknown furosemide 40 mg tablet 40 mg PO BID 12/25/23 05/20/24 Unknown glimepiride 2 mg tablet 2 mg PO QAM 12/25/23 05/20/24 Unknown metformin 500 mg tablet,extended 500 mg PO BID 12/25/23 05/20/24 Unknown release 24 hr potassium chloride 20 mEq/15 mL 20 meq PO BID 12/25/23 05/20/24 Unknown oral liquid rivaroxaban 20 mg tablet (Xarelto) 20 mg PO PM 12/25/23 05/20/24 Unknown sertraline 100 mg tablet 100 mg PO HS 12/25/23 05/20/24 Unknown aspirin 81 mg tablet,delayed 81 mg PO DAILY #30 tabs 12/28/23 05/20/24 Unknown release Antifungal Powder 1 applic topical DIRECTED PRN 05/20/24 05/20/24 Unknown Other Benadryl 1 applic topical DIRECTED PRN 05/20/24 05/20/24 Unknown Other Shefali-Lanta 1 dose PO DIRECTED PRN 05/20/24 05/20/24 Unknown Indigestion Milk of Magnesia 2 tbsp PO DIRECTED PRN 05/20/24 05/20/24 Unknown Constipation [place] 3 1,000 mg PO QAM 05/20/24 05/20/24 Unknown Oyster Don 1 tab PO BID 05/20/24 05/20/24 Unknown Vicks Vaporub 1 applic topical DIRECTED PRN 05/20/24 05/20/24 Unknown Other acetaminophen 1 tab PO DIRECTED PRN Pain 05/20/24 05/20/24 Unknown albuterol sulfate 90 mcg/actuation 2 puff inhalation DIRECTED PRN 05/20/24 05/20/24 Unknown aerosol inhaler (Ventolin HFA) excercise/sob amiodarone 200 mg tablet 200 mg PO QAM 05/20/24 05/20/24 Unknown budesonide-formoterol HFA 80 2 puff inhalation DIRECTED PRN 05/20/24 05/20/24 Unknown mcg-4.5 mcg/actuation aerosol sob inhaler chlorpheniramine-acetaminophen 2 2 tab PO DIRECTED PRN cold/flu 05/20/24 05/20/24 Unknown mg-325 mg tablet guaifenesin 100 mg/5 mL oral 200 mg PO Q4H PRN Cough 05/20/24 05/20/24 Unknown liquid (MAXTussin) ibuprofen 200 mg tablet 800 mg PO Q8H PRN Pain 05/20/24 05/20/24 Unknown loperamide 2 mg tablet 4 mg PO DIRECTED PRN Diarrhea 05/20/24 05/20/24 Unknown (Anti-Diarrheal (loperamide)) neomycin-bacitracn Zn-polymyx 3.5 1 applic topical DAILY PRN Other 05/20/24 05/20/24 Unknown mg-400 unit-5,000 unit/gram top oint (Triple Antibiotic) nitroglycerin 0.4 mg sublingual 0.4 mg sublingual DIRECTED PRN 05/20/24 05/20/24 Unknown tablet Chest Pain tamsulosin 0.4 mg capsule 0.4 mg PO PM 05/20/24 05/20/24 Unknown vitamin A and D 1 applic topical DIRECTED PRN 05/20/24 05/20/24 Unknown Other Active Medications Generic Name Dose Route Start Last Admin Trade Name Freq PRN Reason Stop Dose Admin Amiodarone HCl 200 mg 10/12/24 09:00 05/23/24 08:06 Amiodarone 200 Mg Tab PO 06/20/24 08:59 200 mg QAM SATISH Administration Aspirin 81 mg 05/21/24 09:00 05/23/24 08:06 Aspirin 81 Mg Ectab PO 06/20/24 08:59 81 mg DAILY SATISH Administration Atorvastatin Calcium 10 mg 05/21/24 08:00 05/23/24 08:06 Atorvastatin 10 Mg Tab PO 06/20/24 07:59 10 mg DAILY@0800 SATISH Administration Furosemide 40 mg 05/20/24 22:03 05/23/24 08:06 Furosemide 40 Mg Tab PO 06/19/24 22:02 40 mg BID17 SATISH Administration Amiodarone HCl/Dextrose 360 mg in 200 mls @ 16.667 mls/hr 05/21/24 02:45 05/23/24 02:34 Nexterone / D5w IV 06/20/24 02:44 0.5 mg/min .Q12H SATISH 16.7 mls/hr Administration 0.5 MG/MIN Insulin Aspart 0 units 05/20/24 22:03 05/23/24 07:52 Insulin Aspart Per Unit Charge SC 06/19/24 22:02 Not Given ACHS [facility] Metoprolol Tartrate 12.5 mg 05/20/24 22:03 05/23/24 08:06 Metoprolol Tartrate 25 Mg Tab PO 06/19/24 22:02 12.5 mg TID SATISH Administration Potassium Chloride 20 meq 05/20/24 22:03 05/23/24 08:05 Potassium Chloride 20 Meq/15 Ml Udc PO 06/19/24 22:02 20 meq BID@08,1999 [facility] Administration Rivaroxaban 20 mg 05/20/24 22:03 05/22/24 17:16 Rivaroxaban 20 Mg Tab PO 06/19/24 22:02 20 mg DAILY@1700 SATISH Administration Sertraline HCl 100 mg 05/20/24 22:03 05/22/24 20:12 Sertraline Hcl 100 Mg Tablet PO 06/19/24 22:02 100 mg DAILY@1999 SATISH Administration Tamsulosin HCl 0.4 mg 05/20/24 22:03 05/22/24 20:12 Tamsulosin Hcl 0.4 Mg Cap PO 06/19/24 22:02 0.4 mg DAILY@1999 [facility] Administration Past Medical History Medical History Benign prostatic hyperplasia with urinary obstruction CAD morbid obesity CHF A Fib/ A Flutter HTN HLD ASCVD Aorta MAR[place]ON NIDDM COPD Exercise / Class Metabolic Activity III < 4 Walking/Shop/Light housework Past Anesthesia History No Hx of Anesthesia Complications and No Family Hx of Anesthesia Complications History of PONV No Hx of PONV and No Hx of Motion Sickness Social History Smoking Status: Never smoker Do You Dip or Chew Tobacco: No Hx Alcohol Use: No Hx Substance Use: No substance use type: does not use Physical Exam Vital Signs Last Vital Signs Temp 36.4 C L 05/23/24 07:33 Pulse 101 H 05/23/24 07:33 Resp 19 05/23/24 07:33 BP 118/84 05/23/24 07:33 Pulse Ox 94 05/23/24 07:33 O2 Del Method Room Air 05/23/24 08:05 Testing Laboratory Results 05/20/24 11:14 05/21/24 06:03 PT 12.0 Seconds (9.0-12.0) 05/20/24 11:14 INR 1.1 (0.9-1.1) 05/20/24 11:14 Urine Color Yellow 05/20/24 13:00 Urine Appearance Clear (Clear) 05/20/24 13:00 Urine pH 5.0 (4.5-7.5) 05/20/24 13:00 Ur Specific [place] 1.013 (1.000-1.030) 05/20/24 13:00 Urine Protein Negative (Negative) 05/20/24 13:00 Urine Glucose (UA) Negative (Negative) 05/20/24 13:00 Urine Ketones Negative (Negative) 05/20/24 13:00 Urine Nitrite Negative (Negative) 05/20/24 13:00 Ur Leukocyte Esterase Trace (Negative) H 05/20/24 13:00 Urine WBC (Auto) 0-5 /hpf (0-5) 05/20/24 13:00 Urine RBC (Auto) 0-2 /hpf (0-2) 05/20/24 13:00 U Hyaline Cast (Auto) 0-2 /lpf (0-2) 05/20/24 13:00 U Epithel Cells (Auto) 0-2 /hpf (0-2) 05/20/24 13:00 Urine Bacteria (Auto) None Seen (None Seen) 05/20/24 13:00 05/23/24 07:31 POC Glucose 132 H Electrocardiogram Date: 05/20/24 Findings: + AFIB @ (A Flutter w/ 2:1 AV conduction;low voltage QRS) Chest X-Ray Date: 05/20/24 Findings: + cardiomegaly, + infiltrate (B/L airspace opacities), + pulmonary vascular congestion and + atherosclerosis of thoracic aorta
[2024-05-23] MEDS ORDERED: ATROPINE SULFATE 0.1 MG/ML 10ML SYR IV PRN (12:36)
[2024-05-23] MEDS ORDERED: ePHEDrine sulfate 50 MG/ML AMP IV PRN (12:36)
--- NOTE | 2024-05-23 12:51 | Anesthesiology Progress Note ---
Date of Service May 23, 2024 Anesthesia Post Procedure Vital Signs Vital Signs: Temp Pulse Pulse Pulse Resp BP Pulse Ox 05/23/24 12:10 36.6 C 116 H 14 127/92 97 05/23/24 08:05 05/23/24 07:33 36.4 C L 101 H 19 118/84 94 05/23/24 05:55 94 H 05/23/24 05:41 98 H 05/23/24 03:22 36.9 C 101 H 16 108/62 91 05/23/24 00:48 05/22/24 22:49 36.7 C 104 H 18 116/82 94 05/22/24 21:55 110 H 05/22/24 19:36 37.2 C 105 H 18 120/82 93 05/22/24 15:22 36.8 C 95 H 18 116/83 97 O2 Del Method 05/23/24 12:10 Room Air 05/23/24 08:05 Room Air 05/23/24 07:33 Room Air 05/23/24 05:55 05/23/24 05:41 05/23/24 03:22 Room Air 05/23/24 00:48 Room Air 05/22/24 22:49 Room Air 05/22/24 21:55 05/22/24 19:36 Room Air 05/22/24 15:22 Room Air Transfer of Care Handoff Completed per policy Notes Mental Status: alert / awake / arousable Patient Amnestic to Procedure: Yes Nausea / Vomiting: adequately controlled Pain: adequately controlled Airway Patency, RR, SpO2: stable & adequate BP & HR: stable & adequate Hydration State: stable & adequate Anesthetic Complications: no major complications apparent
--- NOTE | 2024-05-23 12:54 | Cardioversion ---
Date of Service May 23, 2024 PG Electrical Cardioversion Rp Electrical Cardioversion Report Indication: Atrial flutter Written consent was obtained after the risks and benefits were explained, including but not limited to pain, thermal burn, allergic reaction, aspiration, airway obstruction, laryngospasm, infection, hypotension, and cardiorespiratory arrest. Sedation was supervised by Anesthesiology. The biphasic defibrillator was set to 100 joules of energy and synched. After confirmation of sedation and "all clear" safety check the synchronized shock was delivered. This resulted in conversion of the atrial flutter to atrial fibrillation. The biphasic defibrillator was set to 150 J of energy and re-synced. After confirmation of sedation and "all clear" safety check a second synchronized shock was delivered. This resulted in conversion to sinus rhythm at 64 bpm. See nursing notes for dosages and times. There were no complications and the patient recovered uneventfully from the procedure. Coding Level of Care Code 26616 CARDIOVERSION, ELECTIVE Additional Codes Electrical Cardioversion Report ([id number])
[2024-05-23] MEDS: LIDOCAINE 2% 2 ML VIAL/AMP(20MG/ML) INFIL ONE (14:18)
[2024-05-23] MEDS: PROPOFOL IV EMULSION 10 MG/ML 20 ML VIAL IV ONE (14:18)
[2024-05-23] MEDS: AMIODARONE 200 MG TAB PO SCH (15:48)
--- NOTE | 2024-05-24 08:58 | Discharge Summary ---
Date of Service May 24, 2024 Admission HPI Per Admitting Provider Pt had presented to ED for symptoms of a racing heart. Most recent admission for a.flutter with RVR, ultimately managed with electrical cardioversion and amiodarone. ED course: CBC grossly WNL, coag panel WNL, CMP gluc 102, phosphorus 2.1, bilirubin 1.2; troponin 12.6, BNP 61; UA grossly WNL. CXR: cardiomegaly with evidence of congestive failure + bilateral airspace opacities could represent mild pulmonary edema and/or an infectious/inflammatory pneumonitis. EKG: Atrial flutter with 2:1 A-V conduction, Low voltage QRS, Right bundle branch block, ventricular rate 154, atrial rate 308. Metoprolol tartrate 5 mg IV x 4 (20mg total) provided in ED. Pt is a 68 y/o M with mild intellectual developmental disability, HFpEF, A. flutter with RVR, A. fib with RVR on Xarelto, sleep apnea, CAD, HTN, DMT2 who presented with symptoms of a racing heart that started in the morning. Reports that he was not doing anything in particular that caused these symptoms, and they came on randomly. Reports very minimal shortness of breath, and some feelings of fluttering in his chest. Denies orthopnea, chest pain, productive cough, LE swelling, N/V/C, recent illness. Reports that he was recently in the hospital for similar symptoms. 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 Admission Exam Per Admitting Provider Constitutional: + obese; no acute distress Eyes: Left eye does not focus well during visit Respiratory: normal respiratory effort; does not use accessory muscles and no cough Auscultation: + crackles (BLL); no wheezes Cardiovascular: Rate/Rhythm: regular rhythm and + tachycardic Heart Sounds: normal S1 and normal S2; no murmur Extremities: + edema (1+, bilateral LE to level of mid-martin) Gastrointestinal (Abdomen): normal bowel sounds, soft, nontender, no hepatosplenomegaly Neurologic: Mild developmental intellectual disability Principal Diagnosis A flutter s/p cardioversion Discharge Exam General: Alert and oriented. No acute distress Cardiac: RRR, no murmurs appreciated Respiratory: Lungs clear to auscultation bilaterally, No increased work of breathing Abdominal: Soft, non-tender, non-distended. Bowel sounds present. Discharge Data Allergies Allergy/AdvReac Type Severity Reaction Status Date / Time No Known Allergies Allergy Verified 05/16/19 14:43 Consultations 05/20/24 14:54 ED Decision to Admit Stat 05/21/24 14:17 Consult Cardiology Routine Procedures Performed Operation Date: 05/23/24 13:00 Actual Procedures p Cardioversion - Misha Oshea MD Ordered Studies 05/23/24 13:17 CL Cath Imgs for PACS use only Stat Hospital Course (1) COPD (chronic obstructive pulmonary disease): (2) Atrial flutter with rapid ventricular response: (3) Acute heart failure with preserved ejection fraction: (4) Diabetes mellitus: (5) CAD (coronary artery disease): (6) Hyperlipidemia: (7) On rivaroxaban therapy: Plan (1) Atrial flutter with rapid ventricular response Pt presented with symptoms of a racing heartbeat that started the morning of arrival. - EKG on arrival: Atrial flutter with 2:1 A-V conduction; Low voltage QRS; Right bundle branch block - CXR: Cardiomegaly with evidence of congestive failure; Bilateral airspace opacities- similar findings compared to 12/2023 film - Ventricular response suboptimally controlled despite tx with Metoprolol + Amiodarone - Cardiology consulted, patient s/p cardioversion with successful conversion to sinus rhythm. - Amiodarone increased to 200mg PO BID - Continue anticoagulation with Xarelto 2) Probable mild acute HFpEF sec to RVR - Improvement with HR control and continue home Lasix 40mg BID Chronic conditions 3) HTN 4) DM 5) HLD 6) COPD 7) Mood (depression/anxiety) 8) BPH - continue home regimen Total Time Total Time Spent Total Time Spent (In Minutes): see attending attestation Discharge Plan Discharge Items Patient Disposition: Home - Self-Care Reason For Visit: AFLUTTER Discharge Diagnosis: A flutter s/p cardioversion Activity: As commented below Activity Comment: activity progression as tolerated Non-emergency contact: Primary Care Provider and Nutritionist Public Health Call non-emergency contact if: you have any medication questions and your symptoms worsen Follow-up/Referrals: Bernabe Gold MD [Physician] - (Does not need [facility] f/u-> will f/u with manager financial reporting in [place] ) Darrin Mejia [Primary Care Provider] - Diet: Heart Healthy Add Attending Provider Instructions: You were admitted due to an arrhythmia called atrial flutter, which manifested with increased heart rate. Despite multiple medications, your heart rate remained somewhat elevated. For this reason, you underwent cardioversion, which restored your heart to a normal rhythm. Upon discharge the following change was made to your medications: - Increase Amiodarone to 200mg twice daily. Please follow up with your manager financial reporting soon after discharge for ongoing management. - No other changes were made to your home medications. Pending Studies at Discharge: No Stand-Alone Forms: My [facility] Flo[employer], Smoking Cessation Medications and DC Order Prescriptions: New amiodarone 200 mg Tablet 200 mg PO Q12 30 Days Qty: 60 0RF Continued lisinopril 5 mg tablet 2.5 mg PO QAM Rx Instructions: 8am triamcinolone acetonide 0.1 % cream 1 appln topical UD Rx Instructions: not on list 1 ashley daily isosorbide mononitrate 30 mg tablet extended release 24 hr 30 mg PO QAM Rx Instructions: 8am ketoconazole 2 % shampoo 1 appln topical UD Rx Instructions: not on list 1 ashley daily Lactobacillus acidophilus 100 mg (1 billion cell) capsule 100 mg PO BID Rx Instructions: 100 mg po bid not on list Antifungal Powder 1 applic topical DIRECTED PRN (Reason: Other) Triple Antibiotic 3.5mg-400 unit- 5,000 unit/gram Ointment 1 applic TOPICAL DAILY PRN (Reason: Other) vitamin A and D Ointment 1 applic TOPICAL DIRECTED PRN (Reason: Other) loperamide [Anti-Diarrheal (loperamide)] 2 mg Tablet 4 mg PO DIRECTED PRN (Reason: Diarrhea) Rx Instructions: administer after each loose stool until symptoms controlled; do not exceed 8 mg per 24 hrs guaifenesin [MAXTussin] 100 mg/5 mL Liquid 200 mg PO Q4H PRN (Reason: Cough) ibuprofen 200 mg Tablet 800 mg PO Q8H PRN (Reason: Pain) nitroglycerin 0.4 mg Tablet, Sublingual 0.4 mg sublingual DIRECTED PRN (Reason: Chest Pain) albuterol sulfate [Ventolin HFA] 90 mcg/actuation Hfa Aerosol Inhaler 2 puff INHALATION DIRECTED PRN (Reason: excercise/sob) chlorpheniramine-acetaminophen 2-325 mg Tablet 2 tab PO DIRECTED PRN (Reason: cold/flu) budesonide-formoterol 80-4.5 mcg/actuation Hfa Aerosol Inhaler 2 puff INHALATION DIRECTED PRN (Reason: sob) Benadryl 1 applic topical DIRECTED PRN (Reason: Other) Shefali-Lanta 1 dose PO DIRECTED PRN (Reason: Indigestion) Milk of Magnesia 2 tbsp PO DIRECTED PRN (Reason: Constipation) Rx Instructions: no bm after 3 days [place]ine 3 1,000 mg PO QAM Oyster Don 1 tab PO BID Rx Instructions: unknown dose. Vicks Vaporub 1 applic topical DIRECTED PRN (Reason: Other) acetaminophen 1 tab PO DIRECTED PRN (Reason: Pain) Rx Instructions: unknown dose tamsulosin 0.4 mg capsule 0.4 mg PO PM Rx Instructions: 8pm furosemide 40 mg tablet 40 mg PO BID Rx Instructions: 8am, 5pm atorvastatin 10 mg tablet 10 mg PO QAM Rx Instructions: 8am sertraline 100 mg tablet 100 mg PO HS Rx Instructions: 8pm glimepiride 2 mg tablet 2 mg PO QAM Rx Instructions: 8am potassium chloride 20 mEq/15 mL liquid 20 meq PO BID Rx Instructions: 8am, 8pm metformin 500 mg tablet extended release 24 hr 500 mg PO BID Rx Instructions: 8am, 5pm Xarelto 20 mg tablet 20 mg PO PM Rx Instructions: 5pm aspirin 81 mg Tablet,Delayed Release (Dr/Ec) 81 mg PO DAILY Qty: 30 0RF Rx Instructions: 8am Discontinued amiodarone 200 mg tablet 200 mg PO QAM Rx Instructions: 200 mg daily 8 am Discharge Orders: Discharge Order (Routine); Ordered 05/24/24 Ordered By: Kristopher Montez Admission Data Admit Date/Time: 05/21/24 14:17 Attending Provider: Jana Noland Admit Provider: Jorge Jones Primary Care Provider: Darrin Mejia Other Providers: Francisco Rawls; Bernabe Gold; Jorge Jones Other Interventions: Discharge Summary Assessment (RN) Last Done: 05/24/24 11:31 Supervising Physician Co-Signing Physician Notes Attending Physician Supervision Note: I independently interviewed and examined the patient and verified the carlin history and physical, reviewed labs and image studies and agree with findings and care plan noted above. Resident Activity Tracking Resident Involvement: Resident Care Provided Care Provided: Adult [facility]
--- NOTE | 2024-05-24 09:06 | Electrocardiogram Report ---
Test Reason : Blood Pressure : */* mmHG Vent. Rate : 52 BPM Atrial Rate : 52 BPM P-R Int : 186 ms QRS Dur : 134 ms QT Int : 446 ms P-R-T Axes : 46 54 8 degrees QTcB Int : 414 ms Sinus bradycardia with Premature supraventricular complexes Right bundle branch block Abnormal ECG When compared with ECG of 20-May-2024 11:12, HR has decreased by 102 bpm Atrial flutter no longer present Confirmed by Misha Oshea ([id number]) on 05/24/2024 9:05:28 AM Referred By: REFERRED SELF Confirmed By: Misha Oshea
--- NOTE | 2024-05-24 10:54 | Cardiology Progress Note ---
Date of Service May 24, 2024 Assessment & Plan (1) Atrial flutter with rapid ventricular response: (2) Acute heart failure with preserved ejection fraction: (3) CAD (coronary artery disease): (4) Hypertension: (5) Hyperlipidemia: Plan Remains in sinus rhythm and asymptomatic post electrical cardioversion yesterday. Would discharge on amiodarone at 200 mg twice daily without plans for tapering in the near term, eventually could reduce to 300 mg total daily dose but would not return him to 200 mg daily since his dysrhythmia recurred on this lower dose. If further recurrent atrial flutter with rapid response, would consider atrial flutter ablation therapy. No heart failure symptoms and he appears euvolemic on his usual dose of furosemide 40 mg twice daily. Will sign off from a cardiology perspective. Follow-up with his secretary bookkeeper in [place]. Admission and Anticipated Discharge Date Admission Date: May 21, 2024 Subjective Doing well, no complaints. Denies chest pain, palpitations, or dyspnea. Telemetry post cardioversion yesterday afternoon showed sinus rhythm with PACs, rate generally 60-70 bpm. Physical Exam Physical Exam: No distress. BP normotensive. Pulse 68 bpm and regular with ectopy. . Respirations 18 and unlabored. Skin: no ecchymoses or generalized lesions. HEENT: unremarkable. Neck: JVP at the clavicle at 90 degrees, no carotid bruits. Lungs: clear. Cardiac: Regular rhythm with sporadic ectopy, normal S1-2, no murmur. Abdomen: benign. Extremities: no edema, pulses intact. Neurologic: Simple affect and conversation, nonfocal. Results & Data Vital Signs (Past 12 Hours) Vital Signs Temp Pulse Pulse Pulse Resp BP BP 05/24/24 09:29 97.3 F L 68 68 18 118/79 118/80 05/24/24 07:15 63 05/24/24 07:07 97.3 F L 68 18 118/79 05/24/24 03:17 98.2 F 67 18 97/62 L Pulse Ox O2 Del Method 05/24/24 09:29 93 05/24/24 07:15 05/24/24 07:07 93 Room Air 05/24/24 03:17 96 Room Air PG Care Time/CCT Total # of Minutes Spent Total Time Spent with Patient: Total time spent is greater than 50% in coordination of care (as documented) at patient's floor/unit and/or counseling patient: Coding Level of Care Code 92026 SUB INP/OBS CARE 235MIN Diagnoses Atrial flutter with rapid ventricular response I48.92 Acute heart failure with preserved ejection fraction I50.31 CAD (coronary artery disease) I25.10 Hypertension I10 Hyperlipidemia E78.5
[2024-05-24 11:16] VITALS: PULSE 66; RESP 14; TEMP 98.1; O2SAT 94
[2024-05-24 11:31] VITALS: BP 118/79
== END 2024-05-24 11:15 | disposition home or self-care (01) | DRG 308 ==
LOC: ED 11:00 → 2N 11:00 → 2S 05-21 02:26 → SUATTDRO 05-21 14:17